=== PATIENT | female | born 1950 | race Caucasian/White ===

== ENCOUNTER 2018-06-08 19:00 | Inpatient (IN) | payer MEDICARE ==
[2018-06-08 20:16] LABS: ABSOLUTE BASOPHILS # (AUTO) 0.1 10^3/uL (0.0-0.2); ABSOLUTE EOSINOPHILS # (AUTO) 0.2 10^3/uL (0.0-0.6); ABSOLUTE LYMPHOCYTES (AUTO) 2.5 10^3/uL (0.5-4.7); ABSOLUTE MONOCYTES (AUTO) 0.9 10^3/uL (0.1-1.4); ABSOLUTE NEUT (AUTO) 5.7 10^3/uL (1.7-8.2); BASOPHILS % (AUTO) 1.4 % (0-2); EOSINOPHILS % (AUTO) 2.2 % (0-6); HEMATOCRIT 47.8 % (36.0-47.0); HEMOGLOBIN 16.2 g/dL (12.0-15.5); LYMPHOCYTES % (AUTO) 26.8 % (13-45); MEAN CORPUSCULAR HEMOGLOBIN 29.4 pg (27.0-33.4); MEAN CORPUSCULAR HGB CONC 33.8 g/dL (32.0-36.0); MEAN CORPUSCULAR VOLUME 87 fl (80-97); MONOCYTES % (AUTO) 9.1 % (3-13); PLATELET COUNT 236 10^3/uL (150-450); RED CELL DISTRIBUTION WIDTH 14.5 % (11.5-14.0); SEGMENTED NEUTROPHILS % (AUTO) 60.5 % (42-78); TOTAL CELLS COUNTED % (AUTO) 100 %; WHITE BLOOD COUNT 9.5 10^3/uL (4.0-10.5)
[2018-06-08 20:23] LABS: INTERNATIONAL RATION (INR) 1.04; PROTHROMBIN TIME 14.1 SEC (11.4-15.4)
[2018-06-08 20:24] LABS: PARTIAL THROMBOPLASTIN TIME 36.2 SEC (23.5-35.8)
[2018-06-08 20:29] LABS: ANION GAP 14 (5-19); BLOOD UREA NITROGEN 22 mg/dL (7-20); CALCIUM 9.7 mg/dL (8.4-10.2); CARBON DIOXIDE 26 mmol/L (22-30); CHLORIDE 100 mmol/L (98-107); GLUCOSE 189 mg/dL (75-110); POTASSIUM 4.7 mmol/L (3.6-5.0); SODIUM 139.9 mmol/L (137-145)
--- NOTE | 2018-06-08 21:01 | ER Document Report ---
ED General - General Chief Complaint: Rectal Bleeding Stated Complaint: RECTAL BLEEDING Time Seen by Provider: 06/08/18 19:26 Notes: Patient is a 67-year old female with a past medical history of atrial fibrillation, currently anticoagulated on Eliquis who presents with complaints of rectal bleeding that started several hours prior to arrival. The patient states that she has passed bright red blood per rectum as well as maroon stools. She denies any history of similar symptoms in the past. States that she has been told that she has had diverticulitis in the past. She has never had a colonoscopy. Nothing seems to improve or worsen her symptoms. She denies any associated hematemesis, melena, abdominal pain, fever or constitutional symptoms. States that she has not taken her night dose of Eliquis. - Related Data Allergies/Adverse Reactions: shellfish derived Adverse Reaction (Verified 06/08/18 23:41) Passed out Past Medical History - General Information source: Patient - Social History Smoking Status: Never Smoker Frequency of alcohol use: None Drug Abuse: None Lives with: Family Family History: Reviewed & Not Pertinent Patient has suicidal ideation: No Patient has homicidal ideation: No - Past Medical History Cardiac Medical History: Reports: Hx Atrial Fibrillation, Hx Hypercholesterolemia, Hx Hypertension Pulmonary Medical History: Reports: Hx COPD Endocrine Medical History: Reports: Hx Diabetes Mellitus Type 2 Renal/ Medical History: Denies: Hx Peritoneal Dialysis GI Medical History: Reports: Hx Gastroesophageal Reflux Disease Review of Systems - Review of Systems Notes: Constitutional: Negative for fever. HENT: Negative for sore throat. Eyes: Negative for visual changes. Cardiovascular: Negative for chest pain. Respiratory: Negative for shortness of breath. Gastrointestinal: Negative for abdominal pain, positive for bloody stools Genitourinary: Negative for dysuria. Musculoskeletal: Negative for back pain. Skin: Negative for rash. Neurological: Negative for headaches, weakness or numbness. 10 point ROS negative except as marked above and in HPI. Physical Exam - Vital signs Vitals: Temp Pulse Resp BP Pulse Ox 97.4 F 102 H 16 149/102 H 98 06/08/18 19:07 06/08/18 19:07 06/08/18 19:07 06/08/18 19:07 06/08/18 19:07 Interpretation: Tachycardic Notes: PHYSICAL EXAMINATION: GENERAL: Well-appearing, well-nourished and in no acute distress. HEAD: Atraumatic, normocephalic. EYES: Pupils equal round and reactive to light, extraocular movements intact, sclera anicteric, conjunctiva are normal. ENT: nares patent, oropharynx clear without exudates. Moist mucous membranes. NECK: Normal range of motion, supple without lymphadenopathy LUNGS: Breath sounds clear to auscultation bilaterally and equal. No wheezes rales or rhonchi. HEART: Regular rate and rhythm without murmurs ABDOMEN: Soft, nontender, normoactive bowel sounds. No guarding, no rebound. No masses appreciated. Rectal: Gross red blood, maroon stools. No masses or lesions. EXTREMITIES: Normal range of motion, no pitting or edema. No cyanosis. NEUROLOGICAL: No focal neurological deficits. Moves all extremities spontaneously and on command. PSYCH: Normal mood, normal affect. SKIN: Warm, Dry, normal turgor, no rashes or lesions noted. Course - Re-evaluation Re-evalutation: 06/08/18 20:58 Patient presents with rectal bleeding on apixaban. Hemodynamically within acceptable limits although is noted to be having intermittent bouts of tachycardia with her A. fib. She has not taken her nighttime medications. She is not hypotensive, map 73. Hemoglobin within normal limits. No evidence of renal dysfunction. I discussed this case with the surgeon recreational therapist Dr. Izaguirre who has agreed to perform a colonoscopy on the patient in the morning. The patient has been discussed with the hospitalist Dr. Romo who has accepted the patient for admission. - Vital Signs Vital signs: Temp Pulse Resp BP Pulse Ox 97.4 F 118 H 24 H 92/67 L 97 06/08/18 23:34 06/09/18 02:00 06/08/18 23:34 06/08/18 23:34 06/08/18 23:34 - Laboratory Result Diagrams: 06/08/18 22:55 06/08/18 19:58 Laboratory results interpreted by me: 06/08/18 06/08/18 06/08/18 19:58 19:58 19:58 RBC 5.50 H Hgb 16.2 H Hct 47.8 H RDW 14.5 H APTT 36.2 H BUN 22 H Glucose 189 H Discharge - Discharge Clinical Impression: Rectal bleeding, Hemorrhage secondary to anti-coagulation Afib Qualifiers: Atrial fibrillation type: chronic Qualified Code(s): I48.2 - Chronic atrial fibrillation Condition: Fair Disposition: ADMITTED INPATIENT Admitting Provider: Hospitalist Unit Admitted: Telemetry
[2018-06-08] MEDS ORDERED: POLYETHYLENE GLYCOL 3350 POWDER 17 GM/1 PACKET PO ONE (21:05)
[2018-06-08] MEDS ORDERED: BISACODYL 5 MG TABEC PO ONE (21:05)
[2018-06-08] MEDS ORDERED: ACETAMINOPHEN 325 MG TABLET PO PRN (22:17)
[2018-06-08] MEDS ORDERED: METOCLOPRAMIDE HCL INJ/PF 10 MG/2 ML SDV IV PRN (22:17)
[2018-06-08] MEDS ORDERED: IPRATROPIUM/ALBUTEROL 0.5-2.5 MG/3 ML AMPUL NEB PRN (22:17)
[2018-06-08] MEDS ORDERED: PROMETHAZINE HCL 25 MG TABLET PO PRN (22:22)
[2018-06-08] MEDS ORDERED: PEG 3350/NA SULF,BICARB,CL/KCL 4000 ML PO ONE (22:45)
[2018-06-08] MEDS ORDERED: PANTOPRAZOLE SODIUM 40 MG VIAL IV ONE (22:45)
[2018-06-08] MEDS ORDERED: PEG 3350/NA SULF,BICARB,CL/KCL 4000 ML ONE (22:57)
[2018-06-08 23:03] LABS: MEAN CORPUSCULAR VOLUME 86 fl (80-97)
[2018-06-08 23:10] LABS: HEMATOCRIT 46.7 % (36.0-47.0); MEAN CORPUSCULAR HEMOGLOBIN 29.5 pg (27.0-33.4); MEAN CORPUSCULAR HGB CONC 34.3 g/dL (32.0-36.0); PLATELET COUNT 237 10^3/uL (150-450); RED BLOOD COUNT 5.42 10^6/uL (3.72-5.28); RED CELL DISTRIBUTION WIDTH 14.5 % (11.5-14.0)
[2018-06-08] MEDS ORDERED: INSULIN LISPRO 100 UNIT/ML 3 ML VIAL SUBCUT PRN (23:32)
[2018-06-08] MEDS ORDERED: GLUCAGON,HUMAN RECOMB 1 MG INJ IM PRN (23:32)
[2018-06-08] MEDS ORDERED: DEXTROSE 50%-WATER 25 GM/50 ML DISP.SYRIN IV PRN ×2 (23:32)
[2018-06-08] MEDS ORDERED: DEXTROSE 40% GEL 15 GM TUBE PO PRN ×2 (23:32)
[2018-06-08] MEDS: NORMAL SALINE 1000 ML 1,000 ML IV PRN (23:43)
--- NOTE | 2018-06-08 23:51 | PDOC H&P ---
History of Present Illness Admission Date/PCP: 06/08/18 21:30 SEGUN BOWMAN PA-C Patient complains of: GI bleeding History of Present Illness: PHILIPPE LACEY is a 67 year old female with medical history remarkable for chronic atrial fibrillation on Eliquis for many years, COPD, hypertension, diabetes, CHF, coronary artery disease/[place] with 1 stent. Patient comes to the emergency department with rectal bleeding is started at 6 PM while going to the bathroom to urinate. The first bowel movement was large more than 2 cups with maroon blood with multiple blood clots, after that she has had one more bowel movement at home and one in the emergency department, the last one has been bright red blood and in less amount of the first one. Denies having any history of GI bleeding in the past. Patient never had an EGD or colonoscopy. Denies nausea, vomiting, dizziness, chest pain or tightness, palpitations, has mild chronic shortness of breath secondary to her COPD. In the ED laboratory came back with a hemoglobin of 16 and hematocrit of 46, coags panel was normal, occult blood in the stools positive Dr. Izaguirre from the general surgery department is aware of the patient and will perform a colonoscopy in the morning. Past Medical History Cardiac Medical History: Reports: Atrial Fibrillation - Chronic on Eliquis, Congestive Heart Failure, Coronary Artery Disease, Myocardial Infarction - 1 a stent, Hyperlipidema, Hypertension Pulmonary Medical History: Reports: Chronic Obstructive Pulmonary Disease (COPD) Neurological Medical History: Reports: Other - Restless legs syndrome Endocrine Medical History: Reports: Diabetes Mellitus Type 2 GI Medical History: Reports: Gastroesophageal Reflux Disease Past Surgical History Past Surgical History: Reports: Cholecystectomy, Hysterectomy Social History Smoking Status: Current Every Day Smoker - Less than 2 packs/week Frequency of Alcohol Use: None Hx Recreational Drug Use: No Hx Prescription Drug Abuse: No Past Social History Note: Patient lives with her niece who is at the bedside. Patient has 3 sons who lives out of the state. Family History Family History: Mother at 47 years old with complications of renal failure, apparently was diabetic, father at 64 years old with myocardial infarction and CHF. Sister had a history of colon cancer with liver metastasis and uterine cancer. Parental Family History Reviewed: Yes - As above Children Family History Reviewed: Yes Sibling(s) Family History Reviewed.: Yes Medication/Allergy Home Medications: Apixaban [Eliquis 5 mg Tablet] 5 mg PO BID 06/08/18 Cetirizine HCl [All Day Allergy] 10 mg PO PRN PRN 06/08/18 Empagliflozin [Jardiance] 10 mg PO DAILY 06/08/18 Fluticasone/Salmeterol [Advair 250-50 Diskus 14 Dose/Diskus] 1 inh IH Q12H 06/08 Furosemide [Lasix 40 mg Tablet] 40 mg PO QAM 06/08/18 Gabapentin [Neurontin 100 mg Capsule] 100 mg PO QHS 06/08/18 Glipizide [Glocotrol 5 Mg Tablet] 10 mg PO DAILY 06/08/18 Lisinopril [Prinivil] 10 mg PO DAILY 06/08/18 Metoprolol Tartrate [Lopressor 50 mg Tablet] 25 mg PO BID 06/08/18 Naproxen Sodium 220 mg PO BID 06/08/18 Omeprazole 20 mg PO DAILY 06/08/18 Pramipexole Di-HCl [Pramipexole Dihydrochloride] 0.125 mg PO QHS 06/08/18 Rosuvastatin Calcium 20 mg PO DAILY 06/08/18 Allergies/Adverse Reactions: shellfish derived Adverse Reaction (Verified 06/08/18 23:41) Passed out Review of Systems Review of Systems: As outlined in the HPI, all others negative Physical Exam Vital Signs: Temp Pulse Resp BP Pulse Ox 97.4 F 102 H 26 H 117/81 98 06/08/18 19:07 06/08/18 19:07 06/08/18 22:18 06/08/18 22:18 06/08/18 22:18 Additional comments: General appearance: Well-developed, well-nourished, alert and cooperative, and appears to be in no acute distress Head: Normocephalic Eyes: PEERL, EOMI, vision is grossly intact. Ears: External auditory canal and tympanic membranes clear, hearing grossly intact. Nose: No nasal discharge. Throat: Oral cavity and pharynx normal. No inflammation, swelling, exudate or lesions. Neck: Neck supple, nontender without lymphadenopathy, masses or thyromegaly. Cardiac: Normal S1 and S2. No S3, S4 or murmurs. Rhythm is irregular and mildly tachycardic. There is no cyanosis or pallor. Extremities are warm and well perfused. Capillary refill is less than 2 seconds. No carotid bruits. Lungs: Clear to auscultation and percussion without rales, rhonchi, wheezing or diminished breath sounds. Not using accessory muscles. Abdomen: Positive bowel sounds. Soft. Nondistended, nontender. No guarding or rebound. No masses. No hepatosplenomegaly Extremities: No significant deformity or joint abnormality. No edema. Peripheral pulses intact. No varicosities. Neurological: Cranial nerves II through XII grossly intact. Strength and sensation symmetric and intact throughout. Reflexes 2+ throughout. Skin: Skin normal color, texture and turgor with no lesions or eruptions, warm and dry. Psychiatric: The mental examination revealed the patient was oriented to person , place, and time. The patient was able to demonstrate good judgment on recent , without hallucinations, abnormal affect or abnormal behaviors. Results Laboratory Results: 06/08/18 22:55 06/08/18 06/08/18 22:34 22:55 WBC 10.0 RBC 5.42 H Hgb 16.0 H Hct 46.7 MCV 86 MCH 29.5 MCHC 34.3 RDW 14.5 H Plt Count 237 Blood Type O POSITIVE Antibody Screen NEGATIVE 06/08/18 06/08/18 06/08/18 19:58 19:58 19:58 WBC 9.5 RBC 5.50 H Hgb 16.2 H Hct 47.8 H MCV 87 MCH 29.4 MCHC 33.8 RDW 14.5 H Plt Count 236 Seg Neutrophils % 60.5 Lymphocytes % 26.8 Monocytes % 9.1 Eosinophils % 2.2 Basophils % 1.4 Absolute Neutrophils 5.7 Absolute Lymphocytes 2.5 Absolute Monocytes 0.9 Absolute Eosinophils 0.2 Absolute Basophils 0.1 PT 14.1 INR 1.04 APTT 36.2 H Sodium 139.9 Potassium 4.7 Chloride 100 Carbon Dioxide 26 Anion Gap 14 BUN 22 H Creatinine 0.63 Est GFR ( Amer) > 60 Est GFR (Non-Af Amer) > 60 Glucose 189 H Calcium 9.7 Stool Occult Blood 06/08/18 20:04 WBC RBC Hgb Hct MCV MCH MCHC RDW Plt Count Seg Neutrophils % Lymphocytes % Monocytes % Eosinophils % Basophils % Absolute Neutrophils Absolute Lymphocytes Absolute Monocytes Absolute Eosinophils Absolute Basophils PT INR APTT Sodium Potassium Chloride Carbon Dioxide Anion Gap BUN Creatinine Est GFR ( Amer) Est GFR (Non-Af Amer) Glucose Calcium Stool Occult Blood POSITIVE Assessment & Plan - Diagnosis (1) GI bleeding Qualifiers: GI bleed type/associated pathology: unspecified gastrointestinal hemorrhage type Qualified Code(s): K92.2 - Gastrointestinal hemorrhage, unspecified Is this a current diagnosis for this admission?: Yes Plan: Patient comes with a sudden episode of GI bleeding at 6 PM, initially maroon stools with blood clots that has turned bright red in the emergency department. Hemoglobin and hematocrit is a stable 1646. Dr. Izaguirre is aware of the patient and will plan for colonoscopy tomorrow, I discussed with the patient and agrees to drink GoLYTELY. Patient may need also an EGD but I will leave this decision to the surgeon. We will monitor hemoglobin and hematocrit every 4 hours, type and screen order place and we will transfused as needed. Eliquis on hold. Continues telemetry monitoring. Patient will remain n.p.o., can have ice chips. (2) Chronic atrial fibrillation Is this a current diagnosis for this admission?: Yes Plan: Heart rate in the emergency department in the 100s, continue with metoprolol if the blood pressure allows it, Eliquis on hold. (3) CAD (coronary artery disease) Qualifiers: Coronary Disease-Associated Artery/Lesion type: [place] artery Is this a current diagnosis for this admission?: Yes Plan: Patient with history of coronary artery disease/myocardial infarction and one a stent placed about 10 years ago, does no complaint of any cardiac symptomatology. Resume home medications. (4) CHF (congestive heart failure) Qualifiers: Heart failure chronicity: unspecified Is this a current diagnosis for this admission?: Yes Plan: Patient does not know if his systolic or diastolic, she is on Lasix at home which I am going to place on hold now due to her persistent GI bleeding. (5) COPD (chronic obstructive pulmonary disease) Qualifiers: COPD type: emphysema Emphysema type: unspecified Qualified Code(s): J43.9 - Emphysema, unspecified Is this a current diagnosis for this admission?: Yes Plan: Patient has COPD, no home oxygen, patient does not have any acute respiratory symptoms, continue with Advair (6) Hypertension Is this a current diagnosis for this admission?: Yes Plan: If blood pressure allow as we will will resume lisinopril and metoprolol. (7) Diabetes mellitus type 2 in obese Is this a current diagnosis for this admission?: Yes Plan: Will place the patient on Accu-Cheks every 6 hours, insulin lispro sliding scale and hypoglycemia protocol. Patient is at home on glipizide and Jardiance. - Time Time Spent: 50 to 70 Minutes Anticipated discharge: Home - Inpatient Certification Based on my medical assessment, after consideration of the patient's comorbidities, presenting symptoms, or acuity I expect that the services needed warrant INPATIENT care.: Yes I certify that my determination is in accordance with my understanding of Medicare's requirements for reasonable and necessary INPATIENT services [42 CFR 412.3e].: Yes Medical Necessity: Risk of Complication if Not Cared For in Hospital - Severe severe GI bleeding with hypotension, severe anemia, need for urgent blood transfusion - Plan Summary Plan Summary: Case discussed with patient and her niece, both agree with plan.,
[2018-06-08] MEDS ORDERED: (PENDING PHARMACY ID) (Cetirizine Hcl [All Day Allergy] 10 MG) PO PRN (23:56)
[2018-06-09] MEDS ORDERED: ATORVASTATIN CALCIUM 40 MG TABLET PO ONE (00:15)
[2018-06-09] MEDS ORDERED: PRAMIPEXOLE DI-HCL 0.25 MG TABLET PO ONE (00:15)
[2018-06-09] MEDS ORDERED: FLUTICASONE/SALMETEROL DISKUS 250-50 MCG/DOSE IH ONE ×2 (00:15→01:59)
[2018-06-09] MEDS ORDERED: GABAPENTIN 100 MG CAPSULE PO ONE (01:00)
[2018-06-09] MEDS: PANTOPRAZOLE SODIUM 40 MG VIAL IV SCH ×2 (05:03→17:21)
[2018-06-09 05:17] LABS: ANION GAP 15 (5-19); BLOOD UREA NITROGEN 20 mg/dL (7-20); CALCIUM 9.4 mg/dL (8.4-10.2); CARBON DIOXIDE 24 mmol/L (22-30); CHLORIDE 101 mmol/L (98-107); GLUCOSE 211 mg/dL (75-110); POTASSIUM 4.6 mmol/L (3.6-5.0); SODIUM 140.2 mmol/L (137-145)
[2018-06-09] MEDS ORDERED: LANSOPRAZOLE 15 MG TAB.RAP.DR PO SCH (06:00)
--- NOTE | 2018-06-09 06:18 | PDOC CONSULTATION ---
Consultation Consult Date: 06/09/18 Consult reason:: Lower GI bleeding History of Present Illness Admission Date/PCP: 06/08/18 21:30 SEGUN BOWMAN PA-C Patient complains of: Lower GI bleeding History of Present Illness: PHILIPPE LACEY is a 67 year old female seen at the request of the hospitalist service. She reports that yesterday she began having large volume, dark maroon, bloody bowel movements. She had 2 large bowel movements at home and came immediately to the emergency department. Patient is on Eliquis for atrial fibrillation. The patient has a history of congestive heart failure and [place]. She has stents in place. The patient has never had a colonoscopy. The patient denies significant abdominal pain, constipation, diarrhea, bloating. She does report melena and hematochezia. She denies chest pain, shortness of breath, weakness, dizziness, orthostasis, headache, blurry vision. The patient is currently drinking her bowel prep. Her last bloody bowel movement was 10-15 minutes ago. Past Medical History Cardiac Medical History: Reports: Atrial Fibrillation, Congestive Heart Failure , Coronary Artery Disease, Myocardial Infarction - 1 a stent, Hyperlipidema, Hypertension Pulmonary Medical History: Reports: Chronic Obstructive Pulmonary Disease (COPD) Neurological Medical History: Reports: Other - Restless legs syndrome Endocrine Medical History: Reports: Diabetes Mellitus Type 2 GI Medical History: Reports: Gastroesophageal Reflux Disease Psychiatric Medical History: Denies: Depression Past Surgical History Past Surgical History: Reports: Cholecystectomy, Hysterectomy Social History Lives with: Family Smoking Status: Never Smoker Number of Years Smokin Last Time Smoked: 06/08/2018 Frequency of Alcohol Use: None Hx Recreational Drug Use: No Drugs: None Hx Prescription Drug Abuse: No Family History Family History: Reviewed & Not Pertinent Parental Family History Reviewed: Yes Children Family History Reviewed: Yes Sibling(s) Family History Reviewed.: Yes Medication/Allergy Home Medications: Apixaban [Eliquis 5 mg Tablet] 5 mg PO BID 06/08/18 Cetirizine HCl [All Day Allergy] 10 mg PO PRN PRN 06/08/18 Empagliflozin [Jardiance] 10 mg PO DAILY 06/08/18 Fluticasone/Salmeterol [Advair 250-50 Diskus 14 Dose/Diskus] 1 inh IH Q12H 06/08 Furosemide [Lasix 40 mg Tablet] 40 mg PO QAM 06/08/18 Gabapentin [Neurontin 100 mg Capsule] 100 mg PO QHS 06/08/18 Glipizide [Glocotrol 5 Mg Tablet] 10 mg PO DAILY 06/08/18 Lisinopril [Prinivil] 10 mg PO DAILY 06/08/18 Metoprolol Tartrate [Lopressor 50 mg Tablet] 25 mg PO BID 06/08/18 Naproxen Sodium 220 mg PO BID 06/08/18 Omeprazole 20 mg PO DAILY 06/08/18 Pramipexole Di-HCl [Pramipexole Dihydrochloride] 0.125 mg PO QHS 06/08/18 Rosuvastatin Calcium 20 mg PO DAILY 06/08/18 Allergies/Adverse Reactions: shellfish derived Adverse Reaction (Verified 06/08/18 23:41) Passed out Review of Systems Constitutional: ABSENT: chills, fever(s), headache(s) Eyes: ABSENT: visual disturbances Ears: ABSENT: hearing changes Nose, Mouth, and Throat: ABSENT: sore throat Cardiovascular: ABSENT: chest pain, palpitations Respiratory: ABSENT: cough, dyspnea Gastrointestinal: PRESENT: hematochezia, melena. ABSENT: abdominal pain, hematemesis, nausea, vomiting Genitourinary: ABSENT: hematuria Musculoskeletal: ABSENT: back pain Integumentary: ABSENT: pruritus, rash Neurological: ABSENT: abnormal gait, abnormal movements, abnormal speech, confusion, convulsions Psychiatric: ABSENT: anxiety, depression Endocrine: ABSENT: cold intolerance, heat intolerance Hematologic/Lymphatic: PRESENT: easy bleeding, easy bruising Physical Exam Vital Signs: Temp Pulse Resp BP Pulse Ox 97.4 F 128 H 12 105/79 100 06/08/18 23:34 06/09/18 04:17 06/09/18 04:17 06/09/18 04:17 06/09/18 04:17 Intake & Output 06/07/18 06/08/18 06/09/18 06:59 06:59 06:59 Weight 68.7 kg General appearance: PRESENT: no acute distress Head exam: PRESENT: atraumatic, normocephalic Eye exam: PRESENT: EOMI, PERRLA. ABSENT: scleral icterus Mouth exam: PRESENT: moist, neck supple Neck exam: ABSENT: meningismus, tenderness, thyromegaly, tracheal deviation Respiratory exam: PRESENT: clear to auscultation ana, unlabored. ABSENT: accessory muscle use, chest wall tenderness, rhonchi, tachypnea, wheezes Cardiovascular exam: PRESENT: irregular rhythm Pulses: PRESENT: normal radial pulses Vascular exam: PRESENT: normal capillary refill GI/Abdominal exam: PRESENT: soft. ABSENT: distended, tenderness Rectal exam: PRESENT: deferred Extremities exam: ABSENT: clubbing Musculoskeletal exam: ABSENT: deformity Neurological exam: PRESENT: alert, awake, oriented to person, oriented to place , oriented to time, oriented to situation, CN II-XII grossly intact Psychiatric exam: ABSENT: agitated, anxious, depressed Focused psych exam: ABSENT: delusional Skin exam: ABSENT: cyanosis, erythema, jaundice Results Laboratory Results: 06/08/18 22:55 06/09/18 04:31 06/08/18 06/08/18 06/09/18 22:34 22:55 04:31 WBC 10.0 RBC 5.42 H Hgb 16.0 H Hct 46.7 MCV 86 MCH 29.5 MCHC 34.3 RDW 14.5 H Plt Count 237 Sodium 140.2 Potassium 4.6 Chloride 101 Carbon Dioxide 24 Anion Gap 15 BUN 20 Creatinine 0.57 Est GFR ( Amer) > 60 Est GFR (Non-Af Amer) > 60 Glucose 211 H Calcium 9.4 Blood Type O POSITIVE Antibody Screen NEGATIVE Assessment & Plan - Diagnosis (1) Lower GI bleeding Is this a current diagnosis for this admission?: Yes (2) Hemorrhage secondary to anti-coagulation Is this a current diagnosis for this admission?: Yes - Plan Summary Plan Summary: This is a 67-year-old female with lower GI bleeding. Her last dose of Eliquis was 8 AM yesterday. Continue to hold Eliquis. The patient is currently drinking her bowel prep. She has not finished it. The patient is hemodynamically stable at present. Her hemoglobin is 16. Plan for colonoscopy when her bowel prep is complete. Risks/benefits discussed, informed consent obtained, and all questions answered.
[2018-06-09] MEDS ORDERED: CETIRIZINE 10 MG TABLET PO PRN (08:57)
[2018-06-09] MEDS ORDERED: LISINOPRIL 10 MG TABLET PO SCH (10:00)
[2018-06-09] MEDS ORDERED: GLIPIZIDE 5 MG TABLET PO SCH (10:00)
[2018-06-09] MEDS ORDERED: NAPROXEN SODIUM 220 MG PO SCH (10:00)
[2018-06-09] MEDS ORDERED: (PENDING PHARMACY ID) (Empagliflozin [Jardiance] 10 MG) PO SCH (10:00)
[2018-06-09] MEDS ORDERED: METOPROLOL TARTRATE 50 MG TABLET PO SCH (10:00)
[2018-06-09] MEDS: FLUTICASONE/SALMETEROL DISKUS 250-50 MCG/DOSE IH SCH ×2 (10:40→21:33)
--- NOTE | 2018-06-09 12:02 | PDOC PROGRESS REPORT ---
Subjective Progress Note for:: 06/09/18 Subjective:: 67-year-old female past medical history of chronic A. fib on Eliquis, COPD, hypertension, diabetes, CHF, CAD status post PCI and stent placement. Patient presented to ED complaining of having a large bloody bowel movement at 6 PM at home and another one while waiting in the ED with multiple large clots. Patient denies any history of previous GI bleed and has never had any EGD or colonoscopy. In ED his hemoglobin was 16 and hematocrit 46 coags negative occult blood positive. 06/09/2018. Patient is comfortably sitting in her chair in no acute distress. No acute events overnight. 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 Patient stating that she is feeling nauseous and she is very hungry. She has not had any bright blood per rectum except for some clots. She finished her GoLYTELY at 7 AM today and is scheduled to undergo colonoscopy as soon as surgery is able to take her to the OR. Patient denies any shortness of breath, dizziness, chills palpitation, vomiting , chest pain, urinary symptoms. Reason For Visit: GI BLEEDING Physical Exam Vital Signs: Temp Pulse Resp BP Pulse Ox 97.3 F 93 17 114/74 100 06/09/18 11:06 06/09/18 11:06 06/09/18 11:06 06/09/18 11:06 06/09/18 11:06 Intake & Output 06/08/18 06/09/18 06/10/18 06:59 06:59 06:59 Intake Total 0 Balance 0 Weight 68.7 kg General appearance: PRESENT: no acute distress, well-developed, well-nourished Head exam: PRESENT: atraumatic, normocephalic Eye exam: PRESENT: conjunctiva pink, EOMI, PERRLA. ABSENT: scleral icterus Ear exam: PRESENT: normal external ear exam Mouth exam: PRESENT: moist, tongue midline Neck exam: ABSENT: carotid bruit, JVD, lymphadenopathy, thyromegaly Respiratory exam: PRESENT: clear to auscultation ana. ABSENT: rales, rhonchi, wheezes Cardiovascular exam: PRESENT: RRR. ABSENT: diastolic murmur, rubs, systolic murmur Pulses: PRESENT: normal dorsalis pedis pul Vascular exam: PRESENT: normal capillary refill GI/Abdominal exam: PRESENT: normal bowel sounds, soft. ABSENT: distended, guarding, mass, organolmegaly, rebound, tenderness Rectal exam: PRESENT: deferred Extremities exam: PRESENT: full ROM. ABSENT: calf tenderness, clubbing, pedal edema Neurological exam: PRESENT: alert, awake, oriented to person, oriented to place , oriented to time, oriented to situation, CN II-XII grossly intact. ABSENT: motor sensory deficit Psychiatric exam: PRESENT: appropriate affect, normal mood. ABSENT: homicidal ideation, suicidal ideation Skin exam: PRESENT: dry, intact, warm. ABSENT: cyanosis, rash Results Laboratory Results: 06/08/18 22:55 06/09/18 04:31 06/08/18 06/08/18 06/09/18 22:34 22:55 04:31 WBC 10.0 RBC 5.42 H Hgb 16.0 H Hct 46.7 MCV 86 MCH 29.5 MCHC 34.3 RDW 14.5 H Plt Count 237 Sodium 140.2 Potassium 4.6 Chloride 101 Carbon Dioxide 24 Anion Gap 15 BUN 20 Creatinine 0.57 Est GFR ( Amer) > 60 Est GFR (Non-Af Amer) > 60 Glucose 211 H Calcium 9.4 Blood Type O POSITIVE Antibody Screen NEGATIVE Assessment & Plan - Diagnosis (1) GI bleeding Qualifiers: GI bleed type/associated pathology: unspecified gastrointestinal hemorrhage type Qualified Code(s): K92.2 - Gastrointestinal hemorrhage, unspecified Is this a current diagnosis for this admission?: Yes Plan: Possibly lower GI bleed. Denies any history of gastritis, GERD, peptic ulcer or any GI malignancy. Monitor H&H and volume status. Pending colonoscopy by surgery. Follow-up recommendation. (2) Diabetes Qualifiers: Diabetes mellitus type: type 2 Is this a current diagnosis for this admission?: No Plan: Long-acting insulin, Accu-Chek, sliding insulin and pre-meal. Adjust dosage as needed. The glycemic protocol. Hold oral hypoglycemics and resume upon discharge. Diabetic diet. (3) CAD (coronary artery disease) Qualifiers: Coronary Disease-Associated Artery/Lesion type: [place] artery Is this a current diagnosis for this admission?: Yes Plan: History of CAD with PCI and stent placement. Denies any active chest pain. Statins. Hold antiplatelet and RONN. Restart once patient is stabilized. (4) CHF (congestive heart failure) Qualifiers: Heart failure chronicity: unspecified Is this a current diagnosis for this admission?: Yes Plan: Not on exacerbation based on physical examination. No echo available. Hold Lasix for now until patient is stabilized. Monitor volume status. Cardiac diet. Outpatient cardiology follow-up. (5) COPD (chronic obstructive pulmonary disease) Qualifiers: COPD type: emphysema Emphysema type: unspecified Qualified Code(s): J43.9 - Emphysema, unspecified Is this a current diagnosis for this admission?: Yes Plan: Currently not on exacerbation. Saturating 100% on room air. (6) Hypertension Is this a current diagnosis for this admission?: Yes Plan: Normotensive. Hold anti-hypertensive medications. Will resume once clinically appropriate. Follow-up with PCP. (7) Chronic atrial fibrillation Is this a current diagnosis for this admission?: Yes Plan: Rate controlled. Hold Eliquis due to recent GI bleed. Any beta-blockers. Restart once patient is stabilized.
[2018-06-09] MEDS: NORMAL SALINE 1000 ML 1,000 ML IV PRN (12:24)
[2018-06-09] MEDS ORDERED: ONDANSETRON HCL INJ/PF 4 MG/2 ML SDV ONE (13:35)
[2018-06-09] MEDS ORDERED: GLUCAGON,HUMAN RECOMB 1 MG INJ ONE (13:36)
[2018-06-09] MEDS ORDERED: FLUMAZENIL INJ 0.5 MG/5 ML VIAL ONE (13:36)
[2018-06-09] MEDS ORDERED: EPINEPHRINE INJ 1 MG/10 ML DISP.SYRIN ONE (13:36)
[2018-06-09] MEDS ORDERED: NALOXONE HCL INJ/PF 0.4 MG/1 ML SDV ONE (13:36)
[2018-06-09] MEDS: MIDAZOLAM 2 MG/2 ML INJ ONE ×5 (14:20→14:39)
[2018-06-09] MEDS: FENTANYL CITRATE INJ/PF 100 MCG/2 ML AMPUL ONE ×4 (14:22→15:00)
--- NOTE | 2018-06-09 15:50 | Operative Report ---
Operative Report DATE OF SURGERY: 06/09/18 PREOPERATIVE DIAGNOSIS: Gastrointestinal bleeding from the rectum; no history of previous colonoscopy POSTOPERATIVE DIAGNOSIS: Same with pandiverticulosis; widespread condyloma acuminata OPERATION: Total colonoscopy cecum with photodocumentation SURGEON: MENDEZ PETERSON ANESTHESIA: Moderate Sedation TISSUE REMOVED OR ALTERED: none COMPLICATIONS: none ESTIMATED BLOOD LOSS: none INTRAOPERATIVE FINDINGS: See below PROCEDURE: Obtaining informed consent the patient was taken from the preoperative holding area to the main endoscopy suite where monitoring devices were attached to the patient. Plan and surgical timeout were conducted The patient was placed in the left lateral decubitus position with knees to chest. A perianal examination was performed. There was no visible or palpable anorectal pathology. Sphincter tone was felt to be normal. The flexible adult colonoscope was advanced through the anal rectal canal, all the way to the cecum. The patient was scope through the sigmoid colon which is full of diverticulosis was extremely difficult. This required sufficient amount of sedation, extracorporeal manipulation, all may be challenging because of the patient's restless leg syndrome. Nonetheless we were able to visualize the cecum as well as the ileocecal valve, the appendiceal orifice and transillumination of the anterior abdominal wall. This was an excellent study on the well-prepped bowel. The colonoscope was withdrawn slowly and methodically checked and the mucosa carefully. There was no evidence of tumor, stricture, bleeding or polyp. There were extensive sigmoid and left colonic diverticulosis as well as a few diverticulosis of the right colon ;The scope was slowly withdrawn through the anal rectal canal. Complete visualization of the rectum was achieved with photodocumentation. The scope was withdrawn to the patient's anus. The patient tolerated the procedure well and was taken to the recovery area in stable condition. Per surveillance patient may be an appropriate candidate for accelerated colonoscopy in 5-7 years. I discussed the above findings with the internal medicine service. Surgery will sign off for now. Please reconsult if needed.
[2018-06-09] MEDS: PRAMIPEXOLE DI-HCL 0.25 MG TABLET PO SCH (21:32)
[2018-06-09] MEDS: ATORVASTATIN CALCIUM 40 MG TABLET PO SCH (21:33)
[2018-06-09] MEDS: GABAPENTIN 100 MG CAPSULE PO SCH (21:33)
[2018-06-10] MEDS: PANTOPRAZOLE SODIUM 40 MG VIAL IV SCH ×2 (06:22→18:04)
[2018-06-10 08:56] LABS: ABSOLUTE BASOPHILS # (AUTO) 0.1 10^3/uL (0.0-0.2); ABSOLUTE EOSINOPHILS # (AUTO) 0.2 10^3/uL (0.0-0.6); ABSOLUTE LYMPHOCYTES (AUTO) 1.5 10^3/uL (0.5-4.7); ABSOLUTE MONOCYTES (AUTO) 0.5 10^3/uL (0.1-1.4); ABSOLUTE NEUT (AUTO) 4.4 10^3/uL (1.7-8.2); EOSINOPHILS % (AUTO) 2.8 % (0-6); HEMATOCRIT 41.6 % (36.0-47.0); LYMPHOCYTES % (AUTO) 22.2 % (13-45); MEAN CORPUSCULAR HGB CONC 33.4 g/dL (32.0-36.0); MEAN CORPUSCULAR VOLUME 87 fl (80-97); MONOCYTES % (AUTO) 7.7 % (3-13); PLATELET COUNT 189 10^3/uL (150-450); RED BLOOD COUNT 4.79 10^6/uL (3.72-5.28); SEGMENTED NEUTROPHILS % (AUTO) 66.3 % (42-78); TOTAL CELLS COUNTED % (AUTO) 100 %; WHITE BLOOD COUNT 6.7 10^3/uL (4.0-10.5)
[2018-06-10 08:58] LABS: HEMOGLOBIN 13.9 g/dL (12.0-15.5)
[2018-06-10] MEDS: FLUTICASONE/SALMETEROL DISKUS 250-50 MCG/DOSE IH SCH ×2 (09:25→21:37)
[2018-06-10] MEDS: METOPROLOL TARTRATE 25 MG TABLET PO SCH ×2 (11:45→21:39)
[2018-06-10] MEDS: INSULIN LISPRO 100 UNIT/ML 3 ML VIAL SUBCUT PRN ×2 (11:55→21:54)
[2018-06-10] MEDS: NYSTATIN CREAM 15 GM TP SCH (21:38)
[2018-06-10] MEDS: ATORVASTATIN CALCIUM 40 MG TABLET PO SCH (21:39)
[2018-06-10] MEDS: PRAMIPEXOLE DI-HCL 0.25 MG TABLET PO SCH (21:39)
[2018-06-10] MEDS: GABAPENTIN 100 MG CAPSULE PO SCH (21:39)
[2018-06-11 05:21] LABS: ABSOLUTE BASOPHILS # (AUTO) 0.1 10^3/uL (0.0-0.2); ABSOLUTE EOSINOPHILS # (AUTO) 0.2 10^3/uL (0.0-0.6); ABSOLUTE LYMPHOCYTES (AUTO) 1.9 10^3/uL (0.5-4.7); ABSOLUTE MONOCYTES (AUTO) 0.7 10^3/uL (0.1-1.4); ABSOLUTE NEUT (AUTO) 4.3 10^3/uL (1.7-8.2); BASOPHILS % (AUTO) 1.1 % (0-2); EOSINOPHILS % (AUTO) 2.6 % (0-6); HEMATOCRIT 39.5 % (36.0-47.0); HEMOGLOBIN 13.3 g/dL (12.0-15.5); MEAN CORPUSCULAR HEMOGLOBIN 28.9 pg (27.0-33.4); MEAN CORPUSCULAR HGB CONC 33.7 g/dL (32.0-36.0); MEAN CORPUSCULAR VOLUME 86 fl (80-97); MONOCYTES % (AUTO) 9.1 % (3-13); PLATELET COUNT 168 10^3/uL (150-450); RED BLOOD COUNT 4.61 10^6/uL (3.72-5.28); RED CELL DISTRIBUTION WIDTH 13.9 % (11.5-14.0); SEGMENTED NEUTROPHILS % (AUTO) 60.2 % (42-78); TOTAL CELLS COUNTED % (AUTO) 100 %; WHITE BLOOD COUNT 7.2 10^3/uL (4.0-10.5)
[2018-06-11] MEDS: PANTOPRAZOLE SODIUM 40 MG VIAL IV SCH (05:33)
[2018-06-11] MEDS: INSULIN LISPRO 100 UNIT/ML 3 ML VIAL SUBCUT PRN (08:22)
[2018-06-11] MEDS: NYSTATIN CREAM 15 GM TP SCH (09:01)
[2018-06-11] MEDS: FLUTICASONE/SALMETEROL DISKUS 250-50 MCG/DOSE IH SCH (09:02)
[2018-06-11] MEDS: METOPROLOL TARTRATE 25 MG TABLET PO SCH (09:02)
--- NOTE | 2018-06-11 10:28 | PDOC DISCHARGE SUMMARY ---
General - Admit/Disc Date/PCP Admission Date/Primary Care Provider: 06/08/18 21:30 SEGUN BOWMAN PA-C Discharge Date: 06/11/18 - Discharge Diagnosis (1) GI bleeding Is this a current diagnosis for this admission?: Yes (2) Diabetes Is this a current diagnosis for this admission?: No (3) CAD (coronary artery disease) Is this a current diagnosis for this admission?: Yes (4) CHF (congestive heart failure) Is this a current diagnosis for this admission?: Yes (5) COPD (chronic obstructive pulmonary disease) Is this a current diagnosis for this admission?: Yes (6) Hypertension Is this a current diagnosis for this admission?: Yes (7) Chronic atrial fibrillation Is this a current diagnosis for this admission?: Yes (8) Diverticulosis Is this a current diagnosis for this admission?: Yes - Additional Information Resuscitation Status: Full Code Discharge Diet: As Tolerated Discharge Activity: Activity As Tolerated Home Medications: Cetirizine HCl [All Day Allergy] 10 mg PO Q12 06/08/18 Empagliflozin [Jardiance] 10 mg PO DAILY 06/08/18 Fluticasone/Salmeterol [Advair 250-50 Diskus 14 Dose/Diskus] 1 inh IH Q12 Furosemide [Lasix 40 mg Tablet] 40 mg PO QAM 06/08/18 Gabapentin [Neurontin 100 mg Capsule] 100 mg PO QHS 06/08/18 Glipizide [Glucotrol 5 mg Tablet] 10 mg PO BID 06/08/18 Lisinopril [Prinivil] 10 mg PO DAILY 06/08/18 Omeprazole 20 mg PO DAILY 06/08/18 Pramipexole Di-HCl [Pramipexole Dihydrochloride] 0.25 mg PO QHS 06/08/18 Rosuvastatin Calcium 20 mg PO QHS 06/08/18 Albuterol Sulfate [Ventolin 0.083% Neb 2.5 mg/3 mL Ampul] 1 vial NEB RTQ4HP PRN 06/09/18 Metoprolol Tartrate [Lopressor 25 mg Tablet] 25 mg PO Q12 06/09/18 History of Present Illness History of Present Illness: 67-year-old female past medical history of chronic A. fib on Eliquis, COPD, hypertension, diabetes, CHF, CAD status post PCI and stent placement. Patient presented to ED complaining of having a large bloody bowel movement at 6 PM at home and another one while waiting in the ED with multiple large clots. Patient denies any history of previous GI bleed and has never had any EGD or colonoscopy. In ED his hemoglobin was 16 and hematocrit 46 coags negative occult blood positive. Hospital Course Hospital Course: (1) GI bleeding Status post colonoscopy on 06/09/2018 which was negative for any acute source of bleeding except for colvin diverticulosis which could have been the cause of bleeding exacerbated by chronic NOACs her A. fib. Patient was counseled about risk and benefit of continuing anticoagulation. She suggested that I should contact her senior licensing manager Dr. Nieto. I was unable to get hold of Dr. Nieto through the phone but her niece got hold of him and asked him to call me. He very kindly left a message on my phone with instructions hold her anticoagulation until she is seen by him as outpatient. Patient kindly agreed with the plan. Denies any history of gastritis, GERD, peptic ulcer or any GI malignancy. H&H stayed stable. Patient was highly advised to return back to ED if she has another episode of GI bleed. (2) Diabetes Long-acting insulin, Accu-Chek, sliding insulin and pre-meal. Adjust dosage as needed. Hypoglycemic protocol. Hold oral hypoglycemics and resume upon discharge. Diabetic diet. (3) CAD (coronary artery disease) History of CAD with PCI and stent placement. Denies any active chest pain. Statins, beta-blockers and RONN. Restart antiplatelets. Hold Eliquis until seen by Dr. Nieto her senior licensing manager. (4) CHF (congestive heart failure) Not on exacerbation based on physical examination. No echo available. Hold Lasix for now until patient is stabilized. Monitor volume status. Cardiac diet. Outpatient cardiology follow-up. (5) COPD (chronic obstructive pulmonary disease) Currently not on exacerbation. Saturating 100% on room air. (6) Hypertension Euvolemic. Restart home antihypertensive medications. His meds as needed. PCP follow-up. (7) Chronic atrial fibrillation Rate controlled. Continue beta-blockers. Hold Eliquis due to recent GI bleed. Please refer to problem #1 (8) Diverticulosis Pandiverticulosis as per colonoscopy on 06/09/2018 which may have been the source of GI bleed. Encourage high fiber diet. Physical Exam Vital Signs: Temp Pulse Resp BP Pulse Ox 97.8 F 118 H 20 121/79 97 06/11/18 03:02 06/11/18 07:00 06/11/18 03:02 06/11/18 03:02 06/11/18 03:02 Intake & Output 06/10/18 06/11/18 06/12/18 06:59 06:59 06:59 Intake Total 2486 2624 Balance 2486 2624 Weight 71.4 kg 69.3 kg General appearance: PRESENT: no acute distress, well-developed, well-nourished Head exam: PRESENT: atraumatic, normocephalic Eye exam: PRESENT: conjunctiva pink, EOMI, PERRLA. ABSENT: scleral icterus Ear exam: PRESENT: normal external ear exam Mouth exam: PRESENT: moist, tongue midline Neck exam: ABSENT: carotid bruit, JVD, lymphadenopathy, thyromegaly Respiratory exam: PRESENT: clear to auscultation ana. ABSENT: rales, rhonchi, wheezes Cardiovascular exam: PRESENT: RRR. ABSENT: diastolic murmur, rubs, systolic murmur Pulses: PRESENT: normal dorsalis pedis pul Vascular exam: PRESENT: normal capillary refill GI/Abdominal exam: PRESENT: normal bowel sounds, soft. ABSENT: distended, guarding, mass, organolmegaly, rebound, tenderness Rectal exam: PRESENT: deferred Extremities exam: PRESENT: full ROM. ABSENT: calf tenderness, clubbing, pedal edema Neurological exam: PRESENT: alert, awake, oriented to person, oriented to place , oriented to time, oriented to situation, CN II-XII grossly intact. ABSENT: motor sensory deficit Psychiatric exam: PRESENT: appropriate affect, normal mood. ABSENT: homicidal ideation, suicidal ideation Skin exam: PRESENT: dry, intact, warm. ABSENT: cyanosis, rash Results Laboratory Results: 06/11/18 04:38 06/09/18 04:31 06/11/18 04:38 WBC 7.2 RBC 4.61 Hgb 13.3 Hct 39.5 MCV 86 MCH 28.9 MCHC 33.7 RDW 13.9 Plt Count 168 Seg Neutrophils % 60.2 Lymphocytes % 27.0 Monocytes % 9.1 Eosinophils % 2.6 Basophils % 1.1 Absolute Neutrophils 4.3 Absolute Lymphocytes 1.9 Absolute Monocytes 0.7 Absolute Eosinophils 0.2 Absolute Basophils 0.1 Qualifiers - * PATIENT BEING DISCHARGED WITH ANY OF THE FOLLOWING DIAGNOSIS: No
--- NOTE | 2018-06-11 10:33 | PDOC PROGRESS REPORT ---
Subjective Progress Note for:: 06/10/18 Subjective:: 67-year-old female past medical history of chronic A. fib on Eliquis, COPD, hypertension, diabetes, CHF, CAD status post PCI and stent placement. Patient presented to ED complaining of having a large bloody bowel movement at 6 PM at home and another one while waiting in the ED with multiple large clots. Patient denies any history of previous GI bleed and has never had any EGD or colonoscopy. In ED his hemoglobin was 16 and hematocrit 46 coags negative occult blood positive. 06/09/2018. Patient is comfortably sitting in her chair in no acute distress. No acute events overnight. 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 Patient stating that she is feeling nauseous and she is very hungry. She has not had any bright blood per rectum except for some clots. She finished her GoLYTELY at 7 AM today and is scheduled to undergo colonoscopy as soon as surgery is able to take her to the OR. Patient denies any shortness of breath, dizziness, chills palpitation, vomiting , chest pain, urinary symptoms. 06/10/2018. No acute events overnight. Patient is status post uneventful colonoscopy yesterday by surgery. Patient is sitting comfortably in her bed not in acute distress and very pleasant and cooperative with physical examination. Some blood clots in 1 of her bowel movement since yesterday. She denies any chest pain, shortness of breath, palpitation, dizziness. Reason For Visit: GI BLEEDING Physical Exam Vital Signs: Temp Pulse Resp BP Pulse Ox 97.9 F 111 H 20 144/75 H 96 06/10/18 03:50 06/10/18 03:50 06/10/18 03:50 06/10/18 03:50 06/10/18 03:50 Intake & Output 06/09/18 06/10/18 06/11/18 06:59 06:59 06:59 Intake Total 2486 Balance 2486 Weight 68.7 kg 71.4 kg General appearance: PRESENT: no acute distress, well-developed, well-nourished Head exam: PRESENT: atraumatic, normocephalic Eye exam: PRESENT: conjunctiva pink, EOMI, PERRLA. ABSENT: scleral icterus Ear exam: PRESENT: normal external ear exam Mouth exam: PRESENT: moist, tongue midline Neck exam: ABSENT: carotid bruit, JVD, lymphadenopathy, thyromegaly Respiratory exam: PRESENT: clear to auscultation ana. ABSENT: rales, rhonchi, wheezes Cardiovascular exam: PRESENT: RRR. ABSENT: diastolic murmur, rubs, systolic murmur Pulses: PRESENT: normal dorsalis pedis pul Vascular exam: PRESENT: normal capillary refill GI/Abdominal exam: PRESENT: normal bowel sounds, soft. ABSENT: distended, guarding, mass, organolmegaly, rebound, tenderness Rectal exam: PRESENT: deferred Extremities exam: PRESENT: full ROM. ABSENT: calf tenderness, clubbing, pedal edema Neurological exam: PRESENT: alert, awake, oriented to person, oriented to place , oriented to time, oriented to situation, CN II-XII grossly intact. ABSENT: motor sensory deficit Psychiatric exam: PRESENT: appropriate affect, normal mood. ABSENT: homicidal ideation, suicidal ideation Skin exam: PRESENT: dry, intact, warm. ABSENT: cyanosis, rash Results Laboratory Results: 06/10/18 08:07 06/09/18 04:31 06/10/18 08:07 WBC 6.7 RBC 4.79 Hgb 13.9 D Hct 41.6 MCV 87 MCH 29.0 MCHC 33.4 RDW 14.0 Plt Count 189 Seg Neutrophils % 66.3 Lymphocytes % 22.2 Monocytes % 7.7 Eosinophils % 2.8 Basophils % 1.0 Absolute Neutrophils 4.4 Absolute Lymphocytes 1.5 Absolute Monocytes 0.5 Absolute Eosinophils 0.2 Absolute Basophils 0.1 Assessment & Plan - Diagnosis (1) GI bleeding Qualifiers: GI bleed type/associated pathology: unspecified gastrointestinal hemorrhage type Qualified Code(s): K92.2 - Gastrointestinal hemorrhage, unspecified Is this a current diagnosis for this admission?: Yes Plan: Status post colonoscopy on 06/09/2018 which was negative for any acute source of bleeding except for colvin diverticulosis which could have been the cause of bleeding exacerbated by chronic NOACs her A. fib. Patient was counseled about risk and benefit of continuing anticoagulation. She suggested that I should contact her investigations manager Dr. Nieto. I was unable to get hold of Dr. Nieto through the phone but her niece got hold of him and asked him to call me. He very kindly left a message on my phone with instructions hold her anticoagulation until she is seen by him as outpatient. Patient kindly agreed with the plan. Denies any history of gastritis, GERD, peptic ulcer or any GI malignancy. Monitor H&H and volume status. Follow-up recommendation. (2) Diabetes Qualifiers: Diabetes mellitus type: type 2 Is this a current diagnosis for this admission?: No Plan: Long-acting insulin, Accu-Chek, sliding insulin and pre-meal. Adjust dosage as needed. Hypoglycemic protocol. Hold oral hypoglycemics and resume upon discharge. Diabetic diet. (3) CAD (coronary artery disease) Qualifiers: Coronary Disease-Associated Artery/Lesion type: [place] artery Is this a current diagnosis for this admission?: Yes Plan: History of CAD with PCI and stent placement. Denies any active chest pain. Statins, beta-blockers and RONN. Hold antiplatelet. Restart once GI bleeding has stopped. (4) CHF (congestive heart failure) Qualifiers: Heart failure chronicity: unspecified Is this a current diagnosis for this admission?: Yes Plan: Not on exacerbation based on physical examination. No echo available. Hold Lasix for now until patient is stabilized. Monitor volume status. Cardiac diet. Outpatient cardiology follow-up. (5) COPD (chronic obstructive pulmonary disease) Qualifiers: COPD type: emphysema Emphysema type: unspecified Qualified Code(s): J43.9 - Emphysema, unspecified Is this a current diagnosis for this admission?: Yes Plan: Currently not on exacerbation. Saturating 100% on room air. (6) Hypertension Is this a current diagnosis for this admission?: Yes Plan: Euvolemic. Restart home antihypertensive medications. His meds as needed. PCP follow-up. (7) Chronic atrial fibrillation Is this a current diagnosis for this admission?: Yes Plan: Rate controlled. Continue beta-blockers. Hold Eliquis due to recent GI bleed. Please refer to problem #1 (8) Diverticulosis Is this a current diagnosis for this admission?: Yes Plan: Pandiverticulosis as per colonoscopy on 06/09/2018 which may have been the source of GI bleed. Encourage high fiber diet.
[2018-06-11 11:08] VITALS: BP 111/77
== END 2018-06-11 11:41 | disposition home or self-care (01) | DRG 379 ==
LOC: ER 19:00 → EH 21:30 → 3W 23:06
PROVIDERS: ADMIT Internal Medicine; ATTEND Internal Medicine
PROC: 0DJD8ZZ Inspection of Lower Intestinal Tract, Via Natural or Artificial Opening Endoscopic (ICD-10-PCS; principal; 2018-06-09 13:30)
PROC: 3E0234Z Introduction of Serum, Toxoid and Vaccine into Muscle, Percutaneous Approach (ICD-10-PCS; 2018-06-11)
DX: K57.31 Diverticulosis of large intestine without perforation or abscess with bleeding (principal); T45.515A Adverse effect of anticoagulants, initial encounter; I48.2 Chronic atrial fibrillation; I11.0 Hypertensive heart disease with heart failure; I50.9 Heart failure, unspecified; E11.8 Type 2 diabetes mellitus with unspecified complications; E78.5 Hyperlipidemia, unspecified; J44.9 Chronic obstructive pulmonary disease, unspecified; K21.9 Gastro-esophageal reflux disease without esophagitis; A63.0 Anogenital (venereal) warts; G25.81 Restless legs syndrome; F17.210 Nicotine dependence, cigarettes, uncomplicated; Z79.01 Long term (current) use of anticoagulants; Z79.84 Long term (current) use of oral hypoglycemic drugs; Z79.51 Long term (current) use of inhaled steroids; Z79.899 Other long term (current) drug therapy; Z23 Encounter for immunization; I25.2 Old myocardial infarction; Y92.018 Other place in single-family (private) house as the place of occurrence of the external cause
CPT/HCPCS: 36415; 45378; 80048; 82272; 82962; 85025; 85027; 85610; 85730; 86850; 86900; 86901; 90686; 99284; J0171; J1610; J1815; J2250; J2310; J2405; J2765; J3010; J3490; J7030; S0164

== ENCOUNTER 2018-08-27 12:26 | Inpatient (IN) | payer MEDICARE ==
--- NOTE | 2018-08-27 13:29 | ER Document Report ---
ED Medical Screen (RME) - General Chief Complaint: Palpitations Stated Complaint: IRREGULAR HEART BEAT Time Seen by Provider: 08/27/18 13:19 Primary Care Provider: SEGUN BOWMAN PA-C [Primary Care Provider] - Follow up as needed Notes: Patient is a 68-year-old female with COPD and atrial fibrillation on Eliquis that presents to the emergency department for chief complaint of palpitations, shortness of breath and cough. Patient states she has seen her primary care office today, for symptoms she is been having for the last several days which include cough, cold symptoms and shortness of breath. She was noted to be in atrial fibrillation with rapid ventricular response and EKG at that time, and was advised to come to the emergency department. She has been using albuterol recently for her symptoms. 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 ROS: Other than noted above, the 12 point review of systems was reviewed with the patient and were negative, all pertinent findings are included in the HPI. PHYSICAL EXAMINATION: Vital signs reviewed. GENERAL: Well-appearing, well-nourished and in no acute distress. HEAD: Atraumatic, normocephalic. EYES: Pupils equal round extraocular movements intact, conjunctiva are normal. ENT: Nares patent NECK: Normal range of motion CV: Heart rate borderline tachycardic, irregular rhythm. LUNGS: No respiratory distress Musculoskeletal: Normal range of motion NEUROLOGICAL: Normal speech PSYCH: Normal mood, normal affect. MDM: Patient seen and examined for rapid initial assessment. Vital signs reviewed. A comprehensive ED assessment and evaluation of the patient, analysis of test results and completion of the medical decision making process will be conducted by additional ED providers. *Note is created using voice recognition software and may contain spelling, syntax or grammatical errors. TRAVEL OUTSIDE OF THE [place] IN LAST 30 DAYS: No - Related Data Allergies/Adverse Reactions: shellfish derived Adverse Reaction (Verified 08/27/18 12:30) Passed out Past Medical History - Past Medical History Cardiac Medical History: Reports: Hx Atrial Fibrillation, Hx Congestive Heart Failure, Hx Coronary Artery Disease, Hx Heart Attack - 1 a stent, Hx Hypercholesterolemia, Hx Hypertension Pulmonary Medical History: Reports: Hx COPD Neurological Medical History: Denies: Hx Seizures Endocrine Medical History: Reports: Hx Diabetes Mellitus Type 2 Renal/ Medical History: Denies: Hx Peritoneal Dialysis GI Medical History: Reports: Hx Gastroesophageal Reflux Disease Psychiatric Medical History: Denies: Hx Depression Past Surgical History: Reports: Hx Cholecystectomy, Hx Hysterectomy Physical Exam - Vital signs Vitals: Temp Pulse Resp BP Pulse Ox 97.8 F 87 20 108/65 99 08/27/18 13:10 08/27/18 13:10 08/27/18 13:10 08/27/18 13:10 08/27/18 13:10 Course - Vital Signs Vital signs: Temp Pulse Resp BP Pulse Ox 97.8 F 87 20 108/65 99 08/27/18 13:10 08/27/18 13:10 08/27/18 13:10 08/27/18 13:10 08/27/18 13:10 Doctor's Discharge - Discharge Referrals: SEGUN BOWMAN PA-C [Primary Care Provider] - Follow up as needed
--- NOTE | 2018-08-27 14:07 | RADIOLOGY REPORT (SQ) ---
EXAM DESCRIPTION: CHEST SINGLE VIEW COMPLETED DATE/TIME: 08/27/2018 1:50 pm REASON FOR STUDY: shortness of breath COMPARISON: None. EXAM PARAMETERS: NUMBER OF VIEWS: One view. TECHNIQUE: Single frontal radiographic view of the chest acquired. RADIATION DOSE: NA LIMITATIONS: None. FINDINGS: LUNGS AND PLEURA: Mild, diffuse bilateral interstitial pulmonary opacity and probable smal l bilateral pleural effusions. MEDIASTINUM AND HILAR STRUCTURES: No masses. Contour normal. HEART AND VASCULAR STRUCTURES: Cardiomegaly. BONES: No acute findings. HARDWARE: None in the chest. OTHER: No other significant finding. IMPRESSION: Mild, diffuse bilateral interstitial pulmonary opacity and probable small bilateral pleu ral effusions, likely edema in the setting of cardiomegaly. No focal airspace opacity. TECHNICAL DOCUMENTATION: JOB ID: [id number] [employer]- All Rights Reserved Reading location - IP/workstation name: [email or web address]
[2018-08-27 14:45] LABS: ABSOLUTE BASOPHILS # (AUTO) 0.1 10^3/uL (0.0-0.2); ABSOLUTE EOSINOPHILS # (AUTO) 0.1 10^3/uL (0.0-0.6); ABSOLUTE LYMPHOCYTES (AUTO) 1.7 10^3/uL (0.5-4.7); ABSOLUTE MONOCYTES (AUTO) 0.5 10^3/uL (0.1-1.4); ABSOLUTE NEUT (AUTO) 5.1 10^3/uL (1.7-8.2); BASOPHILS % (AUTO) 1.1 % (0-2); EOSINOPHILS % (AUTO) 1.9 % (0-6); HEMATOCRIT 41.4 % (36.0-47.0); HEMOGLOBIN 13.7 g/dL (12.0-15.5); LYMPHOCYTES % (AUTO) 22.5 % (13-45); MEAN CORPUSCULAR HEMOGLOBIN 28.4 pg (27.0-33.4); MEAN CORPUSCULAR HGB CONC 33.1 g/dL (32.0-36.0); MEAN CORPUSCULAR VOLUME 86 fl (80-97); PLATELET COUNT 351 10^3/uL (150-450); RED BLOOD COUNT 4.82 10^6/uL (3.72-5.28); RED CELL DISTRIBUTION WIDTH 14.7 % (11.5-14.0); SEGMENTED NEUTROPHILS % (AUTO) 67.5 % (42-78); TOTAL CELLS COUNTED % (AUTO) 100 %; WHITE BLOOD COUNT 7.5 10^3/uL (4.0-10.5)
[2018-08-27 16:31] LABS: ALANINE AMINOTRANSFERASE 15 U/L (9-52); ALBUMIN 3.6 g/dL (3.5-5.0); ALKALINE PHOSPHATASE 92 U/L (38-126); ANION GAP 9 (5-19); ASPARTATE AMINO TRANSFERASE 18 U/L (14-36); BILIRUBIN,DIRECT 0.3 mg/dL (0.0-0.4); BILIRUBIN,TOTAL 0.6 mg/dL (0.2-1.3); BLOOD UREA NITROGEN 16 mg/dL (7-20); CALCIUM 9.4 mg/dL (8.4-10.2); CARBON DIOXIDE 30 mmol/L (22-30); CHLORIDE 98 mmol/L (98-107); GLUCOSE 258 mg/dL (75-110); POTASSIUM 4.5 mmol/L (3.6-5.0); SODIUM 136.9 mmol/L (137-145); TOTAL PROTEIN 6.7 g/dL (6.3-8.2)
[2018-08-27 16:54] LABS: TROPONIN I 1.31 ng/mL
[2018-08-27] MEDS ORDERED: ASPIRIN 81 MG TABLET, CHEWABLE PO ONE (17:25)
[2018-08-27] MEDS ORDERED: DILTIAZEM HCL INJ 25 MG/5 ML VIAL IV ONE ×2 (18:10→18:39)
[2018-08-27] MEDS ORDERED: ENOXAPARIN SODIUM INJ 80 MG/0.8 ML DISP.SYRIN SUBCUT SCH (18:11)
[2018-08-27] MEDS ORDERED: DILTIAZEM HCL/D5W 125 MG/125 ML RTUINJ IV PRN ×2 (18:11→21:01)
[2018-08-27] MEDS ORDERED: FUROSEMIDE INJ/PF 20 MG/2 ML SDV IV ONE (18:12)
--- NOTE | 2018-08-27 18:14 | ER Document Report ---
ED General - General Chief Complaint: Palpitations Stated Complaint: IRREGULAR HEART BEAT Time Seen by Provider: 08/27/18 13:19 Mode of Arrival: Ambulatory Information source: Patient, [facility] Records Notes: 68-year-old female with congestive heart failure, coronary artery disease, hyperlipidemia, hypertension, COPD, type 2 diabetes, atrial fibrillation presents with complaint of shortness of breath, productive cough. Patient states shortness of breath has been ongoing for several weeks. She was seen and treated for upper respiratory infection and completed doxycycline approximately 1 week ago. She states her symptoms have not improved and her shortness of breath has worsened. Patient has also experienced lower extremity edema, dyspnea with mild exertion, talking and laying flat. Patient does have a known history of atrial fibrillation and is on Eliquis, metoprolol. Patient denies associated fever, chills, chest pain, abdominal pain, nausea, vomiting, dysuria, hematuria. TRAVEL OUTSIDE OF THE [place] IN LAST 30 DAYS: No - HPI Onset: Other Onset/Duration: Gradual, Persistent, Worse Quality of pain: No pain Severity: Mild Associated symptoms: Productive cough, Shortness of breath. denies: Body/muscle aches, Chest pain, Fever, Nausea, Vomiting, Rhinnorhea Exacerbated by: Supine, Movement, Walking Relieved by: Denies Similar symptoms previously: Yes Recently seen / treated by doctor: Yes - Related Data Allergies/Adverse Reactions: shellfish derived Adverse Reaction (Verified 08/27/18 12:30) Passed out Past Medical History - General Information source: Patient - Social History Smoking Status: Former Smoker Chew tobacco use (# tins/day): No Frequency of alcohol use: None Drug Abuse: None Lives with: Family Family History: Reviewed & Not Pertinent Patient has suicidal ideation: No Patient has homicidal ideation: No - Past Medical History Cardiac Medical History: Reports: Hx Atrial Fibrillation, Hx Congestive Heart Failure, Hx Coronary Artery Disease, Hx Heart Attack - 1 a stent, Hx Hypercholesterolemia, Hx Hypertension Pulmonary Medical History: Reports: Hx COPD Neurological Medical History: Denies: Hx Seizures Endocrine Medical History: Reports: Hx Diabetes Mellitus Type 2 Renal/ Medical History: Denies: Hx Peritoneal Dialysis GI Medical History: Reports: Hx Gastroesophageal Reflux Disease Psychiatric Medical History: Reports: Hx Attention Deficit Hyperactivity Disorder Denies: Hx Depression Past Surgical History: Reports: Hx Cholecystectomy, Hx Hysterectomy - Immunizations Hx Pneumococcal Vaccination: 08/22/16 Review of Systems - Review of Systems Constitutional: Chills, Weakness, Recent illness. denies: Fever EENT: denies: Blurred vision, Nose congestion Cardiovascular: Palpitations, Dyspnea, Edema. denies: Chest pain, Lightheaded Respiratory: Cough, Short of breath Gastrointestinal: denies: Abdominal pain, Vomiting Genitourinary: denies: Dysuria Female Genitourinary: No symptoms reported Musculoskeletal: Leg swelling. denies: Back pain Skin: denies: Rash Hematologic/Lymphatic: No symptoms reported Neurological/Psychological: denies: Confusion, Weakness, Headaches -: Yes All other systems reviewed and negative Physical Exam - Vital signs Vitals: Temp Pulse Resp BP Pulse Ox 97.8 F 87 20 108/65 99 08/27/18 13:10 08/27/18 13:10 08/27/18 13:10 08/27/18 13:10 08/27/18 13:10 Interpretation: Normal - Notes Notes: PHYSICAL EXAMINATION: GENERAL: Well-appearing, well-nourished and in no acute distress. HEAD: Atraumatic, normocephalic. EYES: Pupils equal round and reactive to light, extraocular movements intact, conjunctiva are normal. ENT: Nares patent, oropharynx clear without exudates. Moist mucous membranes. NECK: Normal range of motion, supple without lymphadenopathy LUNGS: Visibly dyspneic. Breath sounds clear to auscultation bilaterally and equal. No wheezes rales or rhonchi. HEART: Tachycardic, regular rhythm. ABDOMEN: Soft, nontender, nondistended abdomen. No guarding, no rebound. No masses appreciated. Female : deferred Musculoskeletal: Normal range of motion, no pitting or edema. No cyanosis. NEUROLOGICAL: Cranial nerves grossly intact. Normal speech, normal gait. Normal sensory, motor exams PSYCH: Normal mood, normal affect. SKIN: Warm, Dry, normal turgor, no rashes or lesions noted. Course - Re-evaluation Re-evalutation: Laboratory 08/27/18 08/27/18 08/27/18 14:12 14:12 14:12 WBC 7.5 RBC 4.82 Hgb 13.7 Hct 41.4 MCV 86 MCH 28.4 MCHC 33.1 RDW 14.7 H Plt Count 351 Seg Neutrophils % 67.5 Lymphocytes % 22.5 Monocytes % 7.0 Eosinophils % 1.9 Basophils % 1.1 Absolute Neutrophils 5.1 Absolute Lymphocytes 1.7 Absolute Monocytes 0.5 Absolute Eosinophils 0.1 Absolute Basophils 0.1 Sodium Cancelled Potassium Cancelled Chloride Cancelled Carbon Dioxide Cancelled Anion Gap Cancelled BUN Cancelled Creatinine Cancelled Est GFR ( Amer) Cancelled Est GFR (Non-Af Amer) Cancelled Glucose Cancelled Calcium Cancelled Total Bilirubin Cancelled Direct Bilirubin Cancelled Neonat Total Bilirubin Cancelled Neonat Direct Bilirubin Cancelled Neonat Indirect Bili Cancelled AST Cancelled ALT Cancelled Alkaline Phosphatase Cancelled Troponin I Cancelled NT-Pro-B Natriuret Pep Total Protein Cancelled Albumin Cancelled 08/27/18 08/27/18 08/27/18 14:12 15:50 15:50 WBC RBC Hgb Hct MCV MCH MCHC RDW Plt Count Seg Neutrophils % Lymphocytes % Monocytes % Eosinophils % Basophils % Absolute Neutrophils Absolute Lymphocytes Absolute Monocytes Absolute Eosinophils Absolute Basophils Sodium 136.9 L Potassium 4.5 Chloride 98 Carbon Dioxide 30 Anion Gap 9 BUN 16 Creatinine 0.58 Est GFR ( Amer) > 60 Est GFR (Non-Af Amer) > 60 Glucose 258 H Calcium 9.4 Total Bilirubin 0.6 Direct Bilirubin 0.3 Neonat Total Bilirubin Not Reportable Neonat Direct Bilirubin Not Reportable Neonat Indirect Bili Not Reportable AST 18 ALT 15 Alkaline Phosphatase 92 Troponin I 1.310 NT-Pro-B Natriuret Pep Cancelled 5110 H Total Protein 6.7 Albumin 3.6 08/27/18 19:20 WBC RBC Hgb Hct MCV MCH MCHC RDW Plt Count Seg Neutrophils % Lymphocytes % Monocytes % Eosinophils % Basophils % Absolute Neutrophils Absolute Lymphocytes Absolute Monocytes Absolute Eosinophils Absolute Basophils Sodium Potassium Chloride Carbon Dioxide Anion Gap BUN Creatinine Est GFR ( Amer) Est GFR (Non-Af Amer) Glucose Calcium Total Bilirubin Direct Bilirubin Neonat Total Bilirubin Neonat Direct Bilirubin Neonat Indirect Bili AST ALT Alkaline Phosphatase Troponin I 1.340 NT-Pro-B Natriuret Pep Total Protein Albumin Chest X-Ray 08/27/18 13:29 IMPRESSION: Mild, diffuse bilateral interstitial pulmonary opacity and probable small bilateral pleural effusions, likely edema in the setting of cardiomegaly. No focal airspace opacity. Chest CT 08/27/18 19:07 IMPRESSION: No acute pulmonary disease. Coronary artery calcification. Temp Pulse Resp BP Pulse Ox 97.8 F 87 24 H 108/65 96 08/27/18 13:10 08/27/18 13:10 08/27/18 18:12 08/27/18 13:10 08/27/18 18:12 08/27/18 18:13 Bedside ultrasound was obtained and did not show significant pericardial effusion but did show diffuse B-lines in the right and left lower lung field indicative of interstitial edema. Patient's troponin was found to be elevated at 1.3. Patient was administered aspirin, Lovenox. EKG shows the patient to be in atrial fibrillation with rapid ventricular rate of 140. Cardizem was administered and patient was placed on Cardizem drip. Patient was also placed on BiPAP. 08/27/18 19:06 Patient reevaluated now her heart rate is 93 with a blood pressure of 117/76. Repeat troponin pending. 08/27/18 20:21 Hospitalist contacted for admission and request cardiology consult. I did speak to Dr. Sifuentes who will review the patient's medical record and get back to me regarding whether the patient is a appropriate candidate to be hospitalized here. 08/27/18 20:49 Dr. Sifuentes has accepted the patient and states that she can stay in the hospital. He is requesting previous medical records where the patient had her stent done which she reports to be [facility]. Request sent. patient is very happy with this. Dr. Cartagena made aware. Repeat troponin is similar to first. Patient reevaluated and she reports significant improvement with her shortness of breath. Heart rate has not exceeded 110 on her Cardizem drip. 08/27/18 21:05 08/27/18 23:10 - Vital Signs Vital signs: Temp Pulse Resp BP Pulse Ox 97.8 F 87 41 H 115/72 100 08/27/18 13:10 08/27/18 13:10 08/27/18 22:52 08/27/18 22:48 08/27/18 22:52 - Laboratory Result Diagrams: 08/27/18 14:12 08/27/18 15:50 Laboratory results interpreted by me: 08/27/18 08/27/18 08/27/18 14:12 15:50 15:50 RDW 14.7 H Sodium 136.9 L Glucose 258 H NT-Pro-B Natriuret Pep 5110 H - Diagnostic Test Radiology reviewed: Image reviewed, Reports reviewed - EKG Interpretation by Me Rate: Tachycardia Rhythm: A.Fib, Other - RVR When compared to previous EKG there are: Previous EKG unavailable Critical Care Note - Critical Care Note Total time excluding time spent on procedures (mins): 40 - Minutes of critical care time spent in direct contact evaluating and reevaluating the patient, treating symptoms, reviewing labs and studies and speaking with family and consultants excluding any procedures Discharge - Discharge Clinical Impression: Atrial fibrillation with RVR, Diabetes mellitus type 2 in obese, Elevated troponin CHF (congestive heart failure) Qualifiers: Heart failure type: unspecified Heart failure chronicity: unspecified Qualified Code(s): I50.9 - Heart failure, unspecified CAD (coronary artery disease) Qualifiers: Coronary Disease-Associated Artery/Lesion type: [place] artery [place] vs. transplanted heart: [place] heart Associated angina: without angina Qualified Code(s): I25.10 - Atherosclerotic heart disease of [place] coronary artery without angina pectoris Condition: Good Disposition: ADMITTED INPATIENT Admitting Provider: Hospitalist Unit Admitted: [facility]
[2018-08-27] MEDS ORDERED: DIPHENHYDRAMINE HCL 50 MG/ML VIAL IV ONE (18:18)
[2018-08-27] MEDS ORDERED: METHYLPREDNISOLONE INJ 125 MG/2 ML SDV IV ONE (18:18)
[2018-08-27] MEDS ORDERED: FAMOTIDINE INJ/PF 20 MG/2 ML SDV IV ONE (18:18)
--- NOTE | 2018-08-27 19:53 | RADIOLOGY REPORT (SQ) ---
EXAM DESCRIPTION: CT CHEST WITHOUT COMPLETED DATE/TIME: 08/27/2018 7:27 pm REASON FOR STUDY: sob COMPARISON: Chest radiograph TECHNIQUE: CT scan performed of the chest without intravenous contrast. Images reviewed with lung, soft tissue and bone windows. Reconstructed coronal and sagittal MPR images reviewed. All images st ored on PACS. All CT scanners at this facility use dose modulation, iterative reconstruction, and/or weight based d osing when appropriate to reduce radiation dose to as low as reasonably achievable (ALARA). [facility]: Dose Right [facility]: CareDose [facility]: Dose Right [facility]: Teradose 4D [facility]: [employer] RADIATION DOSE: CT Rad equipment meets quality standard of care and radiation dose reduction techniq ues were employed. CTDIvol: 10.7 mGy. DLP: 435 mGy-cm. mGy. LIMITATIONS: No technical limitations. FINDINGS: LUNGS AND PLEURA: No masses, infiltrates, or pneumothorax. No pleural effusions or pleura l calcifications. Minimal scarring at the lung bases. HILAR AND MEDIASTINAL STRUCTURES: No identified masses or abnormal nodes. No obvious aneurysm. Mult iple small nodes. HEART AND VASCULAR STRUCTURES: No aneurysm. No pericardial effusion. Coronary artery calcification. UPPER ABDOMEN: No significant findings. Limited exam. THYROID AND OTHER SOFT TISSUES: No masses. No adenopathy. BONES: No significant finding. HARDWARE: None in the chest. OTHER: No other significant findings. IMPRESSION: No acute pulmonary disease. Coronary artery calcification. TECHNICAL DOCUMENTATION: JOB ID: [id number] Quality ID # [id number]: Final reports with documentation of one or more dose reduction techniques (e.g., Au tomated exposure control, adjustment of the mA and/or kV according to patient size, use of iterative reconstruction technique) 2010 [employer]- All Rights Reserved Reading location - IP/workstation name: [email or web address]
[2018-08-27] MEDS ORDERED: MAGNESIUM HYDROXIDE SUSP 30 ML UDCUP PO PRN (20:50)
[2018-08-27] MEDS ORDERED: ONDANSETRON HCL INJ/PF 4 MG/2 ML SDV IV PRN (20:50)
[2018-08-27] MEDS ORDERED: MAG HYDROX/AL HYDROX/SIMETH SUSP 30 ML UDCUP PO PRN (20:50)
[2018-08-27] MEDS ORDERED: LEVALBUTEROL HCL NEB 1.25 MG/3 ML AMPUL NEB PRN (20:50)
[2018-08-27] MEDS ORDERED: ONDANSETRON 4 MG TAB.RAPDIS PO PRN (20:50)
[2018-08-27] MEDS ORDERED: NALBUPHINE HCL INJ 10 MG/1 ML AMPULE IV PRN (21:03)
[2018-08-27] MEDS ORDERED: ACETAMINOPHEN 325 MG TABLET PO PRN (21:03)
[2018-08-27] MEDS ORDERED: GLUCAGON,HUMAN RECOMB 1 MG INJ IM PRN (21:03)
[2018-08-27] MEDS ORDERED: DEXTROSE 40% GEL 15 GM TUBE PO PRN ×2 (21:03)
[2018-08-27] MEDS ORDERED: NICOTINE 21 MG/24 HR PATCH.TD24 TD PRN (21:03)
[2018-08-27] MEDS ORDERED: DEXTROSE 50%-WATER 25 GM/50 ML DISP.SYRIN IV PRN ×2 (21:03)
--- NOTE | 2018-08-27 21:06 | EKG REPORT ---
SEVERITY:- ABNORMAL ECG - ATRIAL FIBRILLATION, V-RATE 87-183 BORDERLINE T ABNORMALITIES, ANTERIOR LEADS : Confirmed by: Shanita Hendrix 27-Aug-2018 21:05:43
[2018-08-27] MEDS ORDERED: PRAMIPEXOLE DI HCL 0.25 MG PO SCH (22:00)
[2018-08-27 22:20] LABS: CREATINE KINASE MB 1.38 ng/mL (<4.55); TROPONIN I 1.35 ng/mL
[2018-08-27] MEDS ORDERED: ATORVASTATIN CALCIUM 40 MG TABLET PO ONE (23:15)
--- NOTE | 2018-08-27 23:25 | PDOC H&P ---
History of Present Illness Admission Date/PCP: SEGUN BOWMAN PA-C Patient complains of: Dyspnea with palpitations History of Present Illness: PHILIPPE LACEY is a 68 year old female who presented to the emergency room with a 3-week history of dyspnea. She admits the onset of dyspnea approximately 3 weeks ago associated with a productive cough (thick yellowish green mucus) that was treated with a course of oral doxycycline which she completed 1 week ago without noticeable improvement. Her dyspnea continued to worsen until on the day of admission she noted a dramatic increase to severe dyspnea associated with palpitations and orthopnea as well as increased edema of her bilateral lower extremities and noticeably increased dyspnea with any exertion. She admits having prior similar episodes in the past on several occasions and has not identified any other aggravating or ameliorating factors for her dyspnea. She does admit a past history of atrial fibrillation, congestive heart failure, coronary artery disease, hypertension, COPD, type 2 diabetes mellitus and hyperlipidemia for which she is currently being treated. In the emergency room she was found to have atrial fibrillation with a rapid ventricular response which responded well to intravenous Cardizem. Her rate has continued to be well controlled with a Cardizem infusion. She was somewhat hypoxic and was treated with nebulizer therapy and BiPAP to which she has showed an excellent response. She was also noted to have an increased serum troponin at 1.[address] Sifuentes was consulted and agreed to see the patient in consultation and assist in her management. She was therefore admitted to the hospital for further evaluation and treatment. Past Medical History Cardiac Medical History: Reports: Atrial Fibrillation, Congestive Heart Failure, Coronary Artery Disease, Myocardial Infarction - 1 a stent, Hyperlipidema, Hypertension Denies: DVT, Pulmonary Embolism Pulmonary Medical History: Reports: Chronic Obstructive Pulmonary Disease (COPD), Respiratory Failure Denies: Intubation EENT Medical History: Reports: None Neurological Medical History: Denies: Multiple Sclerosis, Seizures Endocrine Medical History: Reports: Diabetes Mellitus Type 2 Denies: Hyperthyroidism, Hypothyroidism Renal/ Medical History: Denies: Chronic Kidney Disease, Nephrolithiasis Malignancy Medical History: Reports: None GI Medical History: Reports: Gastroesophageal Reflux Disease Denies: Cirrhosis, Hepatitis Musculoskeltal Medical History: Denies: Arthritis, Gout Skin Medical History: Denies: Eczema, Psoriasis Psychiatric Medical History: Reports: Attention Deficit Hyperactivity Disorder Denies: Alcohol Dependency, Depression, Substance Abuse, Tobacco Dependency Traumatic Medical History: Reports: None Hematology: Denies: Anemia, Bleeding Tendencies Infectious Medical History: Reports: None Past Surgical History Past Surgical History: Reports: Cardiac Catheterization, Coronary Stent, Hysterectomy Social History Lives with: Family Smoking Status: Former Smoker Frequency of Alcohol Use: None Hx Recreational Drug Use: No Drugs: None Hx Prescription Drug Abuse: No - Advance Directive Resuscitation Status: Full Code Surrogate healthcare decision maker:: Jessenia Carbajal Family History Family History: CAD, DM, Hypertension, Other - Kidney disease. denies: Malignancy Parental Family History Reviewed: Yes Children Family History Reviewed: No Sibling(s) Family History Reviewed.: Yes Medication/Allergy Home Medications: Apixaban [Eliquis 5 mg Tablet] 08/27/18 Fluticasone/Salmeterol [Advair 250-50 Diskus 14 Dose/Diskus] 08/27/18 Furosemide [Lasix 40 mg Tablet] 08/27/18 Gabapentin [Neurontin 100 mg Capsule] 08/27/18 Glipizide [Glucotrol 5 mg Tablet] 08/27/18 Rosuvastatin Calcium 08/27/18 Allergies/Adverse Reactions: shellfish derived Adverse Reaction (Verified 08/27/18 12:30) Passed out Review of Systems Constitutional: ABSENT: chills, fever(s) Eyes: ABSENT: visual disturbances, other - Ocular pain Ears: ABSENT: hearing changes, other - Ear pain Nose, Mouth, and Throat: ABSENT: mouth pain, sore throat Cardiovascular: PRESENT: as per HPI, dyspnea on exertion, edema, orthropnea, palpitations. ABSENT: chest pain Respiratory: PRESENT: as per HPI, cough, dyspnea, sputum. ABSENT: hemoptysis Gastrointestinal: ABSENT: abdominal pain, constipation, diarrhea, nausea, vomiting Genitourinary: ABSENT: dysuria, hematuria Musculoskeletal: ABSENT: deformity, joint swelling Integumentary: ABSENT: pruritus, rash Neurological: ABSENT: confusion, convulsions, memory loss Psychiatric: ABSENT: anxiety, depression Endocrine: ABSENT: cold intolerance, heat intolerance Hematologic/Lymphatic: ABSENT: easy bleeding, easy bruising Physical Exam Vital Signs: Temp Pulse Resp BP Pulse Ox 97.8 F 87 24 H 108/65 96 08/27/18 13:10 08/27/18 13:10 08/27/18 18:12 08/27/18 13:10 08/27/18 18:12 Intake & Output 08/25/18 08/26/18 08/27/18 23:59 23:59 23:59 Weight 69.3 kg General appearance: PRESENT: no acute distress, cooperative, other - On BiPAP Head exam: PRESENT: atraumatic, normocephalic Eye exam: PRESENT: conjunctiva pink, EOMI. ABSENT: scleral icterus Ear exam: PRESENT: normal external ear exam. ABSENT: bleeding, drainage Mouth exam: PRESENT: dry mucosa, neck supple Neck exam: ABSENT: JVD, thyromegaly, tracheal deviation Respiratory exam: PRESENT: decreased breath sounds - Breath sounds mildly decreased throughout the anterior chest, prolonged expiratory phas - Mildly prolonged expiratory phase in all vera, symmetrical, wheezes - Expiratory wheezes in all vera, other - On BiPAP. ABSENT: rales Cardiovascular exam: PRESENT: irregular rhythm - Irregularly irregular rate and rhythm. ABSENT: clicks, gallop, rubs Pulses: PRESENT: normal radial pulses, normal dorsalis pedis pul Vascular exam: PRESENT: normal capillary refill. ABSENT: pallor GI/Abdominal exam: PRESENT: normal bowel sounds, soft Rectal exam: PRESENT: deferred Extremities exam: PRESENT: pedal edema, +2 edema - Bilateral lower extremities with pitting pretibial edema. ABSENT: joint swelling Musculoskeletal exam: ABSENT: deformity, dislocation Neurological exam: PRESENT: alert, oriented to person, oriented to place, oriented to time, oriented to situation, CN II-XII grossly intact. ABSENT: motor sensory deficit Psychiatric exam: PRESENT: appropriate affect, normal mood Skin exam: PRESENT: dry, intact, warm. ABSENT: jaundice, rash, urticaria Results Laboratory Results: 08/27/18 14:12 08/27/18 15:50 08/27/18 08/27/18 08/27/18 14:12 14:12 15:50 WBC 7.5 RBC 4.82 Hgb 13.7 Hct 41.4 MCV 86 MCH 28.4 MCHC 33.1 RDW 14.7 H Plt Count 351 Seg Neutrophils % 67.5 Lymphocytes % 22.5 Monocytes % 7.0 Eosinophils % 1.9 Basophils % 1.1 Absolute Neutrophils 5.1 Absolute Lymphocytes 1.7 Absolute Monocytes 0.5 Absolute Eosinophils 0.1 Absolute Basophils 0.1 Sodium Cancelled 136.9 L Potassium Cancelled 4.5 Chloride Cancelled 98 Carbon Dioxide Cancelled 30 Anion Gap Cancelled 9 BUN Cancelled 16 Creatinine Cancelled 0.58 Est GFR ( Amer) Cancelled > 60 Est GFR (Non-Af Amer) Cancelled > 60 Glucose Cancelled 258 H Calcium Cancelled 9.4 Total Bilirubin Cancelled 0.6 AST Cancelled 18 ALT Cancelled 15 Alkaline Phosphatase Cancelled 92 Total Protein Cancelled 6.7 Albumin Cancelled 3.6 08/27/18 08/27/18 08/27/18 14:12 14:12 15:50 Troponin I Cancelled 1.310 NT-Pro-B Natriuret Pep Cancelled 5110 H 08/27/18 19:20 Troponin I 1.340 NT-Pro-B Natriuret Pep Impressions: Chest X-Ray 08/27/18 13:29 IMPRESSION: Mild, diffuse bilateral interstitial pulmonary opacity and probable small bilateral pleural effusions, likely edema in the setting of cardiomegaly. No focal airspace opacity. Chest CT 08/27/18 19:07 IMPRESSION: No acute pulmonary disease. Coronary artery calcification. Assessment & Plan - Diagnosis (1) Atrial fibrillation with RVR Is this a current diagnosis for this admission?: Yes Plan: Patient will be continued on a Cardizem infusion for rate control until such time as oral agents can be placed for rate control and it is deemed appropriate to do so by the industrial rehabilitation consultant Dr. Sifuentes (2) CAD (coronary artery disease) Qualifiers: Coronary Disease-Associated Artery/Lesion type: [place] artery [place] vs. transplanted heart: [place] heart Associated angina: without angina Qualified Code(s): I25.10 - Atherosclerotic heart disease of [place] coronary artery without angina pectoris Is this a current diagnosis for this admission?: Yes Plan: Patient will be evaluated by Dr. Sifuentes in consultation and treatment as well as further evaluation will be per his recommendations. Serial cardiac enzymes and EKGs will be obtained to evaluate the potential of an acute myocardial infarction (non-STEMI) or significant myocardial ischemia. (3) Diabetes mellitus type 2 in nonobese Is this a current diagnosis for this admission?: Yes Plan: Patient will be continued on her current diabetic regiment and a hemoglobin A1c will be obtained to evaluate her current therapy. (4) CHF (congestive heart failure) Qualifiers: Heart failure type: unspecified Heart failure chronicity: unspecified Qualified Code(s): I50.9 - Heart failure, unspecified Is this a current diagnosis for this admission?: Yes Plan: Patient has a history of congestive heart failure and will be converted to metoprolol succinate as a more appropriate therapeutic agent for CHF. Additionally spironolactone will be added to her regimen. Further changes and adjustments in therapy as well as further evaluation will be determined by Dr. Sifuentes. (5) COPD (chronic obstructive pulmonary disease) Qualifiers: COPD type: emphysema Emphysema type: unspecified Qualified Code(s): J43.9 - Emphysema, unspecified Is this a current diagnosis for this admission?: Yes Plan: Patient will be continued on her current COPD medications and will utilize Xopen ex delivered via nebulizer on a as needed basis for acute symptoms. (6) Hypertension Qualifiers: Hypertension type: essential hypertension Qualified Code(s): I10 - Essential (primary) hypertension Is this a current diagnosis for this admission?: Yes Plan: Patient will be and on her cardiac medications as described above with changes made as described above in discussion of her congestive heart failure. Further treatment will be coordinated with Dr. Sifuentes who will be seeing the patient in consultation. - Time Time Spent: 30 to 50 Minutes Critical Time spent with patient: Less than 15 minutes Medications reviewed and adjusted accordingly: Yes Anticipated discharge: Home - Inpatient Certification Based on my medical assessment, after consideration of the patient's comorbidities, presenting symptoms, or acuity I expect that the services needed warrant INPATIENT care.: Yes I certify that my determination is in accordance with my understanding of Medicare's requirements for reasonable and necessary INPATIENT services [42 CFR 412.3e].: Yes Medical Necessity: Significant Comorbidiites Make Outpatient Treatment Too Risky, Need Close Monitoring Due to Risk of Patient Decompensation, Need For Continuous Telemetry Monitoring, Risk of Complication if Not Cared For in Hospital
[2018-08-28] MEDS: APIXABAN 5 MG TABLET PO SCH ×2 (00:10→09:42)
[2018-08-28] MEDS: FAMOTIDINE 20 MG TABLET PO SCH ×3 (00:10→21:57)
[2018-08-28] MEDS: METOPROLOL SUCCINATE 25 MG TAB.SR.24H PO SCH ×3 (00:10→21:56)
[2018-08-28] MEDS ORDERED: DILTIAZEM HCL 30 MG TABLET PO ONE (04:30)
[2018-08-28 05:17] LABS: ABSOLUTE BASOPHILS # (AUTO) 0.1 10^3/uL (0.0-0.2); ABSOLUTE EOSINOPHILS # (AUTO) 0.2 10^3/uL (0.0-0.6); ABSOLUTE LYMPHOCYTES (AUTO) 1.7 10^3/uL (0.5-4.7); ABSOLUTE MONOCYTES (AUTO) 0.6 10^3/uL (0.1-1.4); ABSOLUTE NEUT (AUTO) 4.4 10^3/uL (1.7-8.2); BASOPHILS % (AUTO) 1.2 % (0-2); EOSINOPHILS % (AUTO) 3.1 % (0-6); HEMATOCRIT 37.8 % (36.0-47.0); LYMPHOCYTES % (AUTO) 23.9 % (13-45); MEAN CORPUSCULAR HEMOGLOBIN 29.1 pg (27.0-33.4); MEAN CORPUSCULAR HGB CONC 34.2 g/dL (32.0-36.0); MEAN CORPUSCULAR VOLUME 85 fl (80-97); MONOCYTES % (AUTO) 8.9 % (3-13); PLATELET COUNT 287 10^3/uL (150-450); RED BLOOD COUNT 4.45 10^6/uL (3.72-5.28); RED CELL DISTRIBUTION WIDTH 14.2 % (11.5-14.0); SEGMENTED NEUTROPHILS % (AUTO) 62.9 % (42-78); TOTAL CELLS COUNTED % (AUTO) 100 %; WHITE BLOOD COUNT 6.9 10^3/uL (4.0-10.5)
[2018-08-28 05:39] LABS: ANION GAP 11 (5-19); BLOOD UREA NITROGEN 17 mg/dL (7-20); CALCIUM 9.2 mg/dL (8.4-10.2); CARBON DIOXIDE 27 mmol/L (22-30); CHLORIDE 100 mmol/L (98-107); CHOLESTEROL 148.12 mg/dL (0-200); GLUCOSE 219 mg/dL (75-110); POTASSIUM 4.4 mmol/L (3.6-5.0); SODIUM 138.3 mmol/L (137-145); TRIGLYCERIDES 107 mg/dL (<150)
[2018-08-28 05:49] LABS: CREATINE KINASE MB 1.52 ng/mL (<4.55); DIRECT LDL 108 mg/dL (<100)
[2018-08-28 05:55] LABS: FREE T3 3.81 pg/mL (2.77-5.27); FREE T4 (FREE THYROXINE) 2.29 ng/dL (0.78-2.19)
[2018-08-28 06:08] LABS: TROPONIN I 1.23 ng/mL
[2018-08-28 06:09] LABS: THYROID STIMULATING HORMONE 1.64 uIU/mL (0.47-4.68)
[2018-08-28] MEDS: INSULIN REG, HUMAN 100 UNIT/ML 3 ML VIAL (PYX) SUBCUT PRN ×2 (08:10→12:34)
--- NOTE | 2018-08-28 09:34 | EKG REPORT ---
SEVERITY:- ABNORMAL ECG - ATRIAL FIBRILLATION, V-RATE 72-153 BORDERLINE R WAVE PROGRESSION, ANTERIOR LEADS : Confirmed by: Shanita Hendrix 28-Aug-2018 09:34:05
[2018-08-28] MEDS: ASPIRIN 81 MG TABLET, ENT COATED PO SCH (09:42)
[2018-08-28] MEDS: DOCUSATE SODIUM 100 MG CAPSULE PO SCH ×2 (09:42→17:51)
[2018-08-28] MEDS: SPIRONOLACTONE 25 MG TABLET PO SCH (09:42)
[2018-08-28 09:50] LABS: CREATINE KINASE MB 1.7 ng/mL (<4.55); TROPONIN I 1.12 ng/mL
[2018-08-28] MEDS ORDERED: TICAGRELOR 90 MG TABLET PO SCH (10:00)
[2018-08-28] MEDS ORDERED: LISINOPRIL 10 MG TABLET PO SCH (10:00)
[2018-08-28] MEDS ORDERED: (PENDING PHARMACY ID) (Empagliflozin [Jardiance] 10 MG) PO SCH (10:00)
[2018-08-28] MEDS ORDERED: DILTIAZEM HCL 30 MG TABLET PO SCH (12:00)
[2018-08-28] MEDS: FUROSEMIDE 40 MG TABLET PO SCH (12:34)
[2018-08-28] MEDS: TICAGRELOR 90 MG TABLET PO SCH ×2 (12:34→21:57)
[2018-08-28] MEDS: FLUTICASONE/SALMETEROL DISKUS 250-50 MCG/DOSE IH SCH ×2 (12:35→21:56)
[2018-08-28] MEDS: GLIPIZIDE 5 MG TABLET PO SCH ×2 (12:35→17:59)
[2018-08-28] MEDS ORDERED: GLUCAGON,HUMAN RECOMB 1 MG INJ IM PRN (15:46)
[2018-08-28] MEDS ORDERED: DEXTROSE 50%-WATER 25 GM/50 ML DISP.SYRIN IV PRN ×2 (15:46)
[2018-08-28] MEDS ORDERED: DEXTROSE 40% GEL 15 GM TUBE PO PRN ×2 (15:46)
[2018-08-28] MEDS: INSULIN REG, HUMAN 100 UNIT/ML 3 ML VIAL (PYX) SUBCUT SCH ×2 (17:58→21:58)
[2018-08-28] MEDS: DILTIAZEM HCL 30 MG TABLET PO SCH (18:00)
--- NOTE | 2018-08-28 21:41 | PDOC PROGRESS REPORT ---
Subjective Progress Note for:: 08/28/18 Subjective:: Still feels poorly. Surprising since her rate has exhibited good control. Reason For Visit: ARTRIAL FIBRILLATION WITH RAPID VENTRICULAR RESPON Physical Exam Vital Signs: Temp Pulse Resp BP Pulse Ox 97.9 F 82 18 96/85 L 99 08/28/18 19:30 08/28/18 19:30 08/28/18 19:30 08/28/18 19:30 08/28/18 19:30 Intake & Output 08/27/18 08/28/18 08/29/18 06:59 06:59 06:59 Intake Total 700 Balance 700 Weight 68 kg 68 kg General appearance: PRESENT: no acute distress, cooperative Respiratory exam: PRESENT: clear to auscultation ana. ABSENT: rales, rhonchi, wheezes Cardiovascular exam: PRESENT: irregular rhythm GI/Abdominal exam: PRESENT: normal bowel sounds, soft. ABSENT: tenderness Neurological exam: PRESENT: alert, awake, oriented to person, oriented to place, oriented to situation Psychiatric exam: PRESENT: flat affect. ABSENT: agitated, anxious Results Laboratory Results: 08/28/18 04:23 08/28/18 04:23 08/28/18 08/28/18 08/28/18 04:23 04:23 04:23 WBC 6.9 RBC 4.45 Hgb 13.0 Hct 37.8 MCV 85 MCH 29.1 MCHC 34.2 RDW 14.2 H Plt Count 287 Seg Neutrophils % 62.9 Lymphocytes % 23.9 Monocytes % 8.9 Eosinophils % 3.1 Basophils % 1.2 Absolute Neutrophils 4.4 Absolute Lymphocytes 1.7 Absolute Monocytes 0.6 Absolute Eosinophils 0.2 Absolute Basophils 0.1 Sodium 138.3 Potassium 4.4 Chloride 100 Carbon Dioxide 27 Anion Gap 11 BUN 17 Creatinine 0.56 Est GFR ( Amer) > 60 Est GFR (Non-Af Amer) > 60 Glucose 219 H Calcium 9.2 Magnesium 1.7 Triglycerides 107 Cholesterol 148.12 LDL Cholesterol Direct 108 H VLDL Cholesterol 21.0 HDL Cholesterol 24 L TSH 1.64 Free T4 2.29 H Free T3 pg/mL 3.81 08/27/18 08/27/18 08/27/18 14:12 14:12 15:50 Creatine Kinase CK-MB (CK-2) Troponin I Cancelled 1.310 NT-Pro-B Natriuret Pep Cancelled 5110 H 08/27/18 08/27/18 08/27/18 19:20 21:36 21:36 Creatine Kinase 40 CK-MB (CK-2) 1.38 Troponin I 1.340 1.350 NT-Pro-B Natriuret Pep 08/28/18 08/28/18 08/28/18 04:23 04:23 09:13 Creatine Kinase 45 48 CK-MB (CK-2) 1.52 Troponin I 1.230 NT-Pro-B Natriuret Pep 08/28/18 09:13 Creatine Kinase CK-MB (CK-2) 1.70 Troponin I 1.120 NT-Pro-B Natriuret Pep Impressions: Chest X-Ray 08/27/18 13:29 IMPRESSION: Mild, diffuse bilateral interstitial pulmonary opacity and probable small bilateral pleural effusions, likely edema in the setting of cardiomegaly. No focal airspace opacity. Chest CT 08/27/18 19:07 IMPRESSION: No acute pulmonary disease. Coronary artery calcification. Assessment & Plan - Diagnosis (1) Atrial fibrillation with RVR Is this a current diagnosis for this admission?: Yes Plan: And a brief visit to the patient yesterday after admission by the optical coating technician she did not feel appreciably better. Today she exhibits better rate control but still does not "feel better ". I was unable to obtain the records from her wine fermenter. The diltiazem is new and in combination with the metoprolol is having a positive effect on good rate control. Her blood pressure is on the low side and this could be making her feel fatigued. I am going to decrease her lisinopril first and then make other adjustments as indicated. Continue the metoprolol and diltiazem for good rate control. (2) COPD (chronic obstructive pulmonary disease) Qualifiers: COPD type: emphysema Emphysema type: unspecified Qualified Code(s): J43.9 - Emphysema, unspecified Is this a current diagnosis for this admission?: Yes Plan: Lungs sound clear. Continue current inhaler regimen. (3) Hypertension Qualifiers: Hypertension type: essential hypertension Qualified Code(s): I10 - Essential (primary) hypertension Is this a current diagnosis for this admission?: Yes Plan: As noted above the patient's blood pressure has been running on the low side. I will decrease lisinopril since the diltiazem and metoprolol are providing good rate control. (4) Current use of fpc anticoagulation Is this a current diagnosis for this admission?: Yes Plan: Review of records reveals that the patient was only on 2.5 mg of apixaban twice daily. I have adjusted the dose. (5) Diabetes mellitus type 2 in nonobese Is this a current diagnosis for this admission?: Yes (6) Restless leg syndrome Is this a current diagnosis for this admission?: Yes Plan: Resume Mirapex. The patient was also on gabapentin 300 mg at night. This was resumed as well. - Time Time Spent with patient: 15-24 minutes Medications reviewed and adjusted accordingly: Yes Anticipated discharge: Home
[2018-08-28] MEDS: GABAPENTIN 300 MG CAPSULE PO SCH (21:57)
[2018-08-28] MEDS: APIXABAN 2.5 MG TABLET PO SCH (21:58)
[2018-08-28] MEDS: ROPINIROLE HCL 1 MG TABLET PO SCH (21:58)
[2018-08-28] MEDS: PRAMIPEXOLE DI-HCL 0.25 MG TABLET PO SCH (21:58)
[2018-08-28] MEDS: ATORVASTATIN CALCIUM 40 MG TABLET PO SCH (21:58)
[2018-08-28] MEDS ORDERED: APIXABAN 5 MG TABLET PO SCH (22:00)
[2018-08-29] MEDS: DILTIAZEM HCL 30 MG TABLET PO SCH ×5 (00:25→23:52)
[2018-08-29 04:53] LABS: HEMATOCRIT 38.5 % (36.0-47.0); MEAN CORPUSCULAR HEMOGLOBIN 28.7 pg (27.0-33.4); MEAN CORPUSCULAR HGB CONC 33.8 g/dL (32.0-36.0); MEAN CORPUSCULAR VOLUME 85 fl (80-97); PLATELET COUNT 297 10^3/uL (150-450); RED BLOOD COUNT 4.52 10^6/uL (3.72-5.28); RED CELL DISTRIBUTION WIDTH 14.3 % (11.5-14.0); WHITE BLOOD COUNT 7.5 10^3/uL (4.0-10.5)
[2018-08-29 05:23] LABS: ANION GAP 11 (5-19)
[2018-08-29 05:56] LABS: BLOOD UREA NITROGEN 17 mg/dL (7-20); CARBON DIOXIDE 28 mmol/L (22-30); CHLORIDE 99 mmol/L (98-107); GLUCOSE 180 mg/dL (75-110); POTASSIUM 3.9 mmol/L (3.6-5.0); SODIUM 137.8 mmol/L (137-145)
[2018-08-29] MEDS: INSULIN REG, HUMAN 100 UNIT/ML 3 ML VIAL (PYX) SUBCUT SCH ×4 (08:07→22:31)
[2018-08-29] MEDS: GLIPIZIDE 5 MG TABLET PO SCH ×2 (08:10→17:34)
[2018-08-29] MEDS: FUROSEMIDE 40 MG TABLET PO SCH (08:11)
[2018-08-29] MEDS: DOCUSATE SODIUM 100 MG CAPSULE PO SCH ×2 (09:56→22:50)
[2018-08-29] MEDS: FLUTICASONE/SALMETEROL DISKUS 250-50 MCG/DOSE IH SCH ×2 (09:56→22:27)
[2018-08-29] MEDS: FAMOTIDINE 20 MG TABLET PO SCH ×2 (09:56→22:27)
[2018-08-29] MEDS: SPIRONOLACTONE 25 MG TABLET PO SCH (09:56)
[2018-08-29] MEDS: ASPIRIN 81 MG TABLET, ENT COATED PO SCH (09:56)
[2018-08-29] MEDS: LISINOPRIL 5 MG TABLET PO SCH (09:56)
[2018-08-29] MEDS: TICAGRELOR 90 MG TABLET PO SCH ×2 (09:56→22:27)
[2018-08-29] MEDS: METOPROLOL SUCCINATE 25 MG TAB.SR.24H PO SCH ×2 (09:57→22:27)
[2018-08-29] MEDS: APIXABAN 2.5 MG TABLET PO SCH ×2 (09:57→22:27)
[2018-08-29] MEDS ORDERED: LISINOPRIL 10 MG TABLET PO SCH (10:00)
--- NOTE | 2018-08-29 20:09 | PDOC PROGRESS REPORT ---
Subjective Progress Note for:: 08/29/18 Subjective:: Patient still not feeling better. Still with very limited exercise capacity. Can hardly walk 10 feet without becoming short of breath. Reason For Visit: ARTRIAL FIBRILLATION WITH RAPID VENTRICULAR RESPON Physical Exam Vital Signs: Temp Pulse Resp BP Pulse Ox 97.2 F 88 18 92/69 L 97 08/29/18 15:26 08/29/18 15:26 08/29/18 15:26 08/29/18 15:26 08/29/18 15:26 Intake & Output 08/28/18 08/29/18 08/30/18 06:59 06:59 06:59 Intake Total 700 975 Balance 700 975 Weight 68 kg 66.4 kg General appearance: PRESENT: no acute distress, cooperative Respiratory exam: PRESENT: rales, unlabored. ABSENT: crackles, rhonchi, stridor, wheezes Cardiovascular exam: PRESENT: irregular rhythm GI/Abdominal exam: PRESENT: normal bowel sounds, soft. ABSENT: tenderness Extremities exam: ABSENT: pedal edema Neurological exam: PRESENT: alert, awake, oriented to person, oriented to place, oriented to situation Psychiatric exam: PRESENT: normal mood. ABSENT: agitated, anxious Results Laboratory Results: 08/29/18 04:33 08/29/18 04:33 08/29/18 08/29/18 04:33 04:33 WBC 7.5 RBC 4.52 Hgb 13.0 Hct 38.5 MCV 85 MCH 28.7 MCHC 33.8 RDW 14.3 H Plt Count 297 Sodium 137.8 Potassium 3.9 Chloride 99 Carbon Dioxide 28 Anion Gap 11 BUN 17 Creatinine 0.54 Est GFR ( Amer) > 60 Est GFR (Non-Af Amer) > 60 Glucose 180 H Calcium 9.0 Magnesium 1.9 08/27/18 08/27/18 08/27/18 14:12 14:12 15:50 Creatine Kinase CK-MB (CK-2) Troponin I Cancelled 1.310 NT-Pro-B Natriuret Pep Cancelled 5110 H 08/27/18 08/27/18 08/27/18 19:20 21:36 21:36 Creatine Kinase 40 CK-MB (CK-2) 1.38 Troponin I 1.340 1.350 NT-Pro-B Natriuret Pep 08/28/18 08/28/18 08/28/18 04:23 04:23 09:13 Creatine Kinase 45 48 CK-MB (CK-2) 1.52 Troponin I 1.230 NT-Pro-B Natriuret Pep 08/28/18 08/29/18 09:13 13:29 Creatine Kinase CK-MB (CK-2) 1.70 Troponin I 1.120 0.754 NT-Pro-B Natriuret Pep Impressions: Chest X-Ray 08/27/18 13:29 IMPRESSION: Mild, diffuse bilateral interstitial pulmonary opacity and probable small bilateral pleural effusions, likely edema in the setting of cardiomegaly. No focal airspace opacity. Chest CT 08/27/18 19:07 IMPRESSION: No acute pulmonary disease. Coronary artery calcification. Assessment & Plan - Diagnosis (1) Atrial fibrillation with RVR Is this a current diagnosis for this admission?: Yes Plan: Despite better rate control the patient still feels tired with minimal exertion. We will obtain an echocardiogram to assess cardiac function. (2) COPD (chronic obstructive pulmonary disease) Qualifiers: COPD type: emphysema Emphysema type: unspecified Qualified Code(s): J43.9 - Emphysema, unspecified Is this a current diagnosis for this admission?: Yes Plan: Continue current treatment regimen (3) Hypertension Qualifiers: Hypertension type: essential hypertension Qualified Code(s): I10 - Essential (primary) hypertension Is this a current diagnosis for this admission?: Yes Plan: Occasional low blood pressures. May need to adjust medications (4) Current use of detention anticoagulation Is this a current diagnosis for this admission?: Yes Plan: No change in treatment plan (5) Diabetes mellitus type 2 in nonobese Is this a current diagnosis for this admission?: Yes Plan: Still with variable glucose readings. May need to adjust insulin regimen. (6) Restless leg syndrome Is this a current diagnosis for this admission?: Yes Plan: Mirapex and gabapentin have been resumed. - Time Time Spent with patient: 15-24 minutes Medications reviewed and adjusted accordingly: Yes
[2018-08-29] MEDS ORDERED: DIGOXIN INJ 0.5 MG/2 ML AMPULE IV ONE (22:00)
[2018-08-29] MEDS: ROPINIROLE HCL 1 MG TABLET PO SCH (22:27)
[2018-08-29] MEDS: GABAPENTIN 300 MG CAPSULE PO SCH (22:27)
[2018-08-29] MEDS: ATORVASTATIN CALCIUM 40 MG TABLET PO SCH (22:27)
[2018-08-29] MEDS: PRAMIPEXOLE DI-HCL 0.25 MG TABLET PO SCH (22:28)
[2018-08-30 05:20] LABS: ABSOLUTE BASOPHILS # (AUTO) 0.1 10^3/uL (0.0-0.2); ABSOLUTE EOSINOPHILS # (AUTO) 0.2 10^3/uL (0.0-0.6); ABSOLUTE LYMPHOCYTES (AUTO) 1.2 10^3/uL (0.5-4.7); ABSOLUTE MONOCYTES (AUTO) 0.6 10^3/uL (0.1-1.4); ABSOLUTE NEUT (AUTO) 5.6 10^3/uL (1.7-8.2); BASOPHILS % (AUTO) 0.8 % (0-2); EOSINOPHILS % (AUTO) 2.1 % (0-6); HEMATOCRIT 40.6 % (36.0-47.0); HEMOGLOBIN 13.4 g/dL (12.0-15.5); LYMPHOCYTES % (AUTO) 15.8 % (13-45); MEAN CORPUSCULAR HEMOGLOBIN 28.3 pg (27.0-33.4); MEAN CORPUSCULAR VOLUME 86 fl (80-97); MONOCYTES % (AUTO) 8.4 % (3-13); PLATELET COUNT 280 10^3/uL (150-450); RED BLOOD COUNT 4.74 10^6/uL (3.72-5.28); RED CELL DISTRIBUTION WIDTH 14.4 % (11.5-14.0); SEGMENTED NEUTROPHILS % (AUTO) 72.9 % (42-78); TOTAL CELLS COUNTED % (AUTO) 100 %; WHITE BLOOD COUNT 7.7 10^3/uL (4.0-10.5)
[2018-08-30] MEDS: DILTIAZEM HCL 30 MG TABLET PO SCH ×3 (05:26→17:31)
[2018-08-30 05:48] LABS: ANION GAP 9 (5-19); BLOOD UREA NITROGEN 14 mg/dL (7-20); CALCIUM 9.4 mg/dL (8.4-10.2); CARBON DIOXIDE 28 mmol/L (22-30); CHLORIDE 102 mmol/L (98-107); GLUCOSE 144 mg/dL (75-110); POTASSIUM 4.3 mmol/L (3.6-5.0); SODIUM 139.1 mmol/L (137-145)
[2018-08-30] MEDS: FUROSEMIDE 40 MG TABLET PO SCH (10:52)
[2018-08-30] MEDS: GLIPIZIDE 5 MG TABLET PO SCH ×2 (10:52→17:30)
[2018-08-30] MEDS: SPIRONOLACTONE 25 MG TABLET PO SCH (10:52)
[2018-08-30] MEDS: APIXABAN 2.5 MG TABLET PO SCH (10:52)
[2018-08-30] MEDS: METOPROLOL SUCCINATE 25 MG TAB.SR.24H PO SCH ×2 (10:53→21:58)
[2018-08-30] MEDS: DOCUSATE SODIUM 100 MG CAPSULE PO SCH ×2 (10:53→17:30)
[2018-08-30] MEDS: LISINOPRIL 5 MG TABLET PO SCH (10:53)
[2018-08-30] MEDS: ASPIRIN 81 MG TABLET, ENT COATED PO SCH (10:53)
[2018-08-30] MEDS: FAMOTIDINE 20 MG TABLET PO SCH ×2 (10:53→21:58)
[2018-08-30] MEDS: FLUTICASONE/SALMETEROL DISKUS 250-50 MCG/DOSE IH SCH ×2 (10:55→21:58)
[2018-08-30] MEDS: INSULIN REG, HUMAN 100 UNIT/ML 3 ML VIAL (PYX) SUBCUT SCH ×4 (10:55→22:01)
[2018-08-30] MEDS: TICAGRELOR 90 MG TABLET PO SCH (10:55)
[2018-08-30] MEDS: DIGOXIN 0.125 MG TABLET PO SCH (15:41)
--- NOTE | 2018-08-30 19:19 | PDOC PROGRESS REPORT ---
Subjective Progress Note for:: 08/30/18 Reason For Visit: ARTRIAL FIBRILLATION WITH RAPID VENTRICULAR RESPON Physical Exam Vital Signs: Temp Pulse Resp BP Pulse Ox 97.8 F 79 18 98/49 L 99 08/30/18 15:17 08/30/18 15:17 08/30/18 15:17 08/30/18 15:17 08/30/18 15:17 Intake & Output 08/29/18 08/30/18 08/31/18 06:59 06:59 06:59 Intake Total 049 277 1730 Balance 053 215 1885 Weight 66.4 kg 65.4 kg General appearance: PRESENT: no acute distress, cooperative Respiratory exam: PRESENT: clear to auscultation ana. ABSENT: rales, rhonchi, wheezes Cardiovascular exam: PRESENT: irregular rhythm GI/Abdominal exam: PRESENT: normal bowel sounds, soft. ABSENT: tenderness Neurological exam: PRESENT: alert, awake, oriented to person, oriented to place, oriented to situation Psychiatric exam: PRESENT: normal mood. ABSENT: agitated, anxious Results Laboratory Results: 08/30/18 05:07 08/30/18 05:07 08/30/18 08/30/18 05:07 05:07 WBC 7.7 RBC 4.74 Hgb 13.4 Hct 40.6 MCV 86 MCH 28.3 MCHC 33.0 RDW 14.4 H Plt Count 280 Seg Neutrophils % 72.9 Lymphocytes % 15.8 Monocytes % 8.4 Eosinophils % 2.1 Basophils % 0.8 Absolute Neutrophils 5.6 Absolute Lymphocytes 1.2 Absolute Monocytes 0.6 Absolute Eosinophils 0.2 Absolute Basophils 0.1 Sodium 139.1 Potassium 4.3 Chloride 102 Carbon Dioxide 28 Anion Gap 9 BUN 14 Creatinine 0.54 Est GFR ( Amer) > 60 Est GFR (Non-Af Amer) > 60 Glucose 144 H Calcium 9.4 Magnesium 1.9 08/27/18 08/27/18 08/27/18 14:12 14:12 15:50 Creatine Kinase CK-MB (CK-2) Troponin I Cancelled 1.310 NT-Pro-B Natriuret Pep Cancelled 5110 H 08/27/18 08/27/18 08/27/18 19:20 21:36 21:36 Creatine Kinase 40 CK-MB (CK-2) 1.38 Troponin I 1.340 1.350 NT-Pro-B Natriuret Pep 08/28/18 08/28/18 08/28/18 04:23 04:23 09:13 Creatine Kinase 45 48 CK-MB (CK-2) 1.52 Troponin I 1.230 NT-Pro-B Natriuret Pep 08/28/18 08/29/18 09:13 13:29 Creatine Kinase CK-MB (CK-2) 1.70 Troponin I 1.120 0.754 NT-Pro-B Natriuret Pep Impressions: Chest X-Ray 08/27/18 13:29 IMPRESSION: Mild, diffuse bilateral interstitial pulmonary opacity and probable small bilateral pleural effusions, likely edema in the setting of cardiomegaly. No focal airspace opacity. Chest CT 08/27/18 19:07 IMPRESSION: No acute pulmonary disease. Coronary artery calcification. Assessment & Plan - Diagnosis (1) Atrial fibrillation with RVR Is this a current diagnosis for this admission?: Yes Plan: Digoxin added to the regimen. The patient remembers being on digoxin when she was diagnosed with atrial fibrillation. (2) COPD (chronic obstructive pulmonary disease) Qualifiers: COPD type: emphysema Emphysema type: unspecified Qualified Code(s): J43.9 - Emphysema, unspecified Is this a current diagnosis for this admission?: Yes Plan: Stable. Continue current regimen. (3) Hypertension Qualifiers: Hypertension type: essential hypertension Qualified Code(s): I10 - Essential (primary) hypertension Is this a current diagnosis for this admission?: Yes Plan: Blood pressure is slightly low. I have decreased the furosemide. We may need to adjust other medications. (4) Current use of claims consultant anticoagulation Is this a current diagnosis for this admission?: Yes Plan: I was called by the nurses. The patient was having epistaxis and an episode of vaginal spotting. She has had trouble with significant bleeding on anticoagulation before. We will hold the apixaban tonight and hold the aspirin and Brilinta until reassessed in the morning. (5) Diabetes mellitus type 2 in nonobese Is this a current diagnosis for this admission?: Yes Plan: Continue current regimen (6) Restless leg syndrome Is this a current diagnosis for this admission?: Yes Plan: Back on gabapentin and Mirapex - Time Time Spent with patient: 15-24 minutes Medications reviewed and adjusted accordingly: Yes
--- NOTE | 2018-08-30 21:30 | XCELERA REPORT ---
[address] [address] Transthoracic Echocardiogram Report Name: PHILIPPE LACEY Age: 68 yrs Gender: Female : 1950 Patient Status: Inpatient Patient Location: [address] [place], [place] [address]A Study Date: 08/30/2018 12:25 PM Height: 62 in Weight: 146 lb BSA: 1.7 m2 Procedure: A two-dimensional transthoracic echocardiogram with color flow and Doppler was performed. Study Quality: Poor. The study was technically difficult with many images being suboptimal in quality. Reason For Study: afib, chf History: ATRIAL FIBRILLATION / CHF. Ordering Physician: INGRIS BRIGHT Performed By: Suresh Ellis Interpretation Summary The left ventricle is mildly dilated. There is normal left ventricular wall thickness. LV EF is 30% Left ventricular systolic function is severely reduced. There is severe global hypokinesis of the left ventricle. There is no thrombus. The right ventricle is mild to moderately dilated. The right ventricular systolic function is mildly reduced. The right atrium is mildly dilated. The left atrium is mildly dilated. The interatrial septum is intact with no evidence for an atrial septal defect. There is no evidence of mitral valve prolapse. There is no vegetation seen on the mitral valve. There is a moderate to severe amount of mitral regurgitation There is no aortic valve stenosis There is no LVOT obstruction. No aortic regurgitation is present. There is no tricuspid stenosis. There is a mild amount of tricuspid regurgitation There is moderate pulmonary hypertension by echo RVSP is 51 to 56 mm of Hg , with RA mean of 15 to 20. There is a mild amount of pulmonic regurgitation There is no pulmonic valvular stenosis. The aortic root is not well visualized but is probably normal size. The inferior vena cava appeared dilated and decreased < 50% with respiration (RAP 15-20 mmHg) There is no pericardial effusion. MMode/2D Measurements & Calculations RVDd: 2.6 cm LVIDd: 5.3 cm FS: 16.7 % Ao root diam: 2.3 cm IVSd: 0.77 cm LVIDs: 4.5 cm EDV(Teich): 138.3 ml Ao root area: 4.3 cm2 LVPWd: 0.80 cm ESV(Teich): 90.4 ml LA dimension: 3.9 cm EF(Teich): 34.6 % LVOT diam: 1.6 cm LVOT area: 1.9 cm2 Doppler Measurements & Calculations MV E max wes: MV dec time: Ao V2 max: LV V1 max P.9 cm/sec 0.13 sec 60.3 cm/sec 2.8 mmHg MV A max wes: Ao max PG: LV V1 max: 36.4 cm/sec 1.5 mmHg 83.3 cm/sec MV E/A: 3.7 ANDRES(V,D): 2.7 cm2 MR max wes: TV V2 max: PA V2 max: PI end-d wes: 378.9 cm/sec 271.0 cm/sec 158.5 cm/sec 66.5 cm/sec MR max P.0 mmHg TV max PG: PA max P.4 mmHg 10.1 mmHg TR max wes: 298.6 cm/sec TR max P.7 mmHg Left Ventricle The left ventricle is mildly dilated. There is normal left ventricular wall thickness. LV EF is 30%. Left ventricular systolic function is severely reduced. LV diastolic function could not be adequately assessed due to atrial fibrilation. There is severe global hypokinesis of the left ventricle. There is no thrombus. There is no ventricular septal defect visualized. Right Ventricle The right ventricle is mild to moderately dilated. The right ventricular systolic function is mildly reduced. Atria The right atrium is mildly dilated. The left atrium is mildly dilated. The interatrial septum is intact with no evidence for an atrial septal defect. Mitral Valve There is no evidence of mitral valve prolapse. There is no vegetation seen on the mitral valve. There is no mitral valve stenosis. There is a moderate to severe amount of mitral regurgitation. Aortic Valve There is no aortic valvular vegetation. There is no aortic valve stenosis. There is no LVOT obstruction. No aortic regurgitation is present. Tricuspid Valve There is no tricuspid stenosis. There is a mild amount of tricuspid regurgitation. There is moderate pulmonary hypertension by echo. RVSP is 51 to 56 mm of Hg , with RA mean of 15 to 20. Pulmonic Valve There is no pulmonic valvular stenosis. There is a mild amount of pulmonic regurgitation. Great Vessels The aortic root is not well visualized but is probably normal size. The inferior vena cava appeared dilated and decreased < 50% with respiration (RAP 15-20 mmHg). Effusions There is no pericardial effusion. : INGRIS BRIGHT > Jessica Sifuentes
[2018-08-30] MEDS: GABAPENTIN 300 MG CAPSULE PO SCH (21:58)
[2018-08-30] MEDS: PRAMIPEXOLE DI-HCL 0.25 MG TABLET PO SCH (21:58)
[2018-08-30] MEDS: ROPINIROLE HCL 1 MG TABLET PO SCH (21:58)
[2018-08-30] MEDS: ATORVASTATIN CALCIUM 40 MG TABLET PO SCH (21:58)
--- NOTE | 2018-08-30 23:15 | Progress Note ---
Provider Note Provider Note: CARDIOLOGY PROGRESS NOTES by Dr. Jessica Sifuentes on 08/30/2018 SUBJECTIVE: The patient continues to be in atrial fibrillation. At times her heart rate does go fast. Unable to increase her Cardizem, since the patient's blood pressure is in the 100s. Hence digoxin will be asked added. The patient also complains of shortness of breath with minimal exertion. There is patient does have cough is bringing up some whitish brown sputum. There is no chest pain or discomfort. She does have orthopnea but no PND or leg edema. There is no ventricular arrhythmia seen on the monitor. There is no bleeding on Eliquis. There is no TIA CVA symptoms. PHYSICAL EXAMINATION: The patient is well-built and well-nourished. At present no acute distress while sitting in her bed. Selected Entries 08/30/18 08/30/18 07:27 11:45 Temperature 97.5 F 97.9 F Temperature Oral Oral Source Pulse Rate 107 H 85 Respiratory 18 Rate Blood Pressure 101/52 L Blood Pressure 68 Mean BP Location Right Arm BP Position Supine O2 Sat by Pulse 97 Oximetry Oxygen Flow 2.00 Rate Oxygen Delivery Nasal Cannula Method HEAD is atraumatic normocephalic. EYES: Pupils equal round regular reactive to light accommodation. Extraocular movements are normal. There is no conjunctival pallor. There is no scleral icterus. EARS: Tympanic membranes are intact. External auditory canals are clear. NOSE: There is no DVT is nasal septum. There is no nasal polyps. There is no inflammation of the nasal mucous membrane. MOUTH: Mucous membranes of mouth are moist. Tongue is moist. There is no ulcers. There is no bleeding in the gums. THROAT: There is no redness of the oropharynx. There is no exudates. SKIN: There is no petechia or ecchymosis. There is no skin lesions or skin rashes. NECK: Is supple. There is no JVD. Carotids are equal there is no bruit there is no lymphadenopathy. There is no goiter. There is no accessory muscles of respiration use. Trachea central. LUNGS: Shows diminished air entry prolonged expiration. There are few scattered rhonchi. There is no wheezing. There is a few fine rales of CHF in the bases. There is no chest wall tenderness on palpation. On percussion there is hyperresonance throughout. HEART: S1-S2 is heard. S1 is of variable intensity. There is no S3 gallop. There is no S4 gallop. There is murmur of mitral regurgitation present. There is no rub. ABDOMEN: Is soft. There is no hepatosplenic megaly. Bowel sounds are well heard. There is no tender areas masses. EXTREMITIES: Femorals are well felt. There is no femoral bruits. Leg pulses are well felt. There is no pedal edema. There is no DVT or cellulitis. There is no calf tenderness. There is no sinus or clubbing. DIRECTOR DIGITAL COMMUNICATIONS: The patient is conscious awake alert oriented x3 with no focal deficits. PSYCHIATRIC: The patient judgment insight are intact her affect is normal. Labs- All tests 24 hr 08/30/18 08/30/18 08/30/18 05:07 05:07 06:06 WBC 7.7 RBC 4.74 Hgb 13.4 Hct 40.6 MCV 86 MCH 28.3 MCHC 33.0 RDW 14.4 H Plt Count 280 Seg Neutrophils % 72.9 Lymphocytes % 15.8 Monocytes % 8.4 Eosinophils % 2.1 Basophils % 0.8 Absolute Neutrophils 5.6 Absolute Lymphocytes 1.2 Absolute Monocytes 0.6 Absolute Eosinophils 0.2 Absolute Basophils 0.1 Sodium 139.1 Potassium 4.3 Chloride 102 Carbon Dioxide 28 Anion Gap 9 BUN 14 Creatinine 0.54 Est GFR ( Amer) > 60 Est GFR (Non-Af Amer) > 60 Glucose 144 H POC Glucose 144 H Calcium 9.4 Magnesium 1.9 08/30/18 08/30/18 08/30/18 11:46 16:03 21:36 WBC RBC Hgb Hct MCV MCH MCHC RDW Plt Count Seg Neutrophils % Lymphocytes % Monocytes % Eosinophils % Basophils % Absolute Neutrophils Absolute Lymphocytes Absolute Monocytes Absolute Eosinophils Absolute Basophils Sodium Potassium Chloride Carbon Dioxide Anion Gap BUN Creatinine Est GFR ( Amer) Est GFR (Non-Af Amer) Glucose POC Glucose 241 H 348 H 77 Calcium Magnesium Chest X-Ray 08/27/18 13:29 IMPRESSION: Mild, diffuse bilateral interstitial pulmonary opacity and probable small bilateral pleural effusions, likely edema in the setting of cardiomegaly. No focal airspace opacity. Chest CT 08/27/18 19:07 IMPRESSION: No acute pulmonary disease. Coronary artery calcification. Patient's echo shows mildly dilated left ventricle. There is severe global hypokinesis with the ejection fraction of 3 30%. There is severe mitral regurgitation present. IMPRESSION/RECOMMENDATION: 1. Elevated troponin I: Most likely type II supply demand mismatch secondary to atrial fibrillation with rapid ventricular response, acute exacerbation of COPD, and CHF/cardiomyopathy. Troponin I has trended down. We will recheck the patient's troponin in the a.m. 2. Chronic atrial fibrillation at present ventricular response is controlled. Continue the patient on Eliquis. We will change the patient's Cardizem to Lopressor in view of the patient's cardiomyopathy. 3. Acute exacerbation COPD: Improving continue respiratory treatments, recommend antibiotics. 4. CHF: Secondary to cardia myopathy, will increase the patient's anti-cardi omyopathy treatment. 5. Coronary artery disease. History of PR in the past, history of stent in unknown vessel. Unable to obtain records. At present the patient has no anginal symptoms. 6. 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 7. Diabetes mellitus type 2 [id number]. Continue monitoring sugars and continue antidiabetic treatment. 8. Severe mitral regurgitation: Continue anti-CHF treatment, which should take care of this. 9. Hyperlipidemia. Medications reviewed. New medications added. Management plan discussed with the attending patient on the case and other caregiving providers on the case. Medical decision making is of high complexity. 40 minutes spent on this patient more than 50% of time spent in direct patient care.
[2018-08-31 04:04] LABS: HEMATOCRIT 41.4 % (36.0-47.0); HEMOGLOBIN 13.9 g/dL (12.0-15.5); MEAN CORPUSCULAR HEMOGLOBIN 28.8 pg (27.0-33.4); MEAN CORPUSCULAR HGB CONC 33.6 g/dL (32.0-36.0); MEAN CORPUSCULAR VOLUME 86 fl (80-97); PLATELET COUNT 234 10^3/uL (150-450); RED BLOOD COUNT 4.83 10^6/uL (3.72-5.28); RED CELL DISTRIBUTION WIDTH 14.7 % (11.5-14.0); WHITE BLOOD COUNT 7.7 10^3/uL (4.0-10.5)
[2018-08-31] MEDS ORDERED: FUROSEMIDE 40 MG TABLET PO SCH (08:00)
[2018-08-31] MEDS: FAMOTIDINE 20 MG TABLET PO SCH (09:21)
[2018-08-31] MEDS: INSULIN REG, HUMAN 100 UNIT/ML 3 ML VIAL (PYX) SUBCUT SCH ×3 (09:21→17:44)
[2018-08-31] MEDS: SPIRONOLACTONE 25 MG TABLET PO SCH (09:22)
[2018-08-31] MEDS: ASPIRIN 81 MG TABLET, ENT COATED PO SCH (09:22)
[2018-08-31] MEDS: LISINOPRIL 5 MG TABLET PO SCH (09:22)
[2018-08-31] MEDS: DOCUSATE SODIUM 100 MG CAPSULE PO SCH ×2 (09:22→17:44)
[2018-08-31] MEDS: FUROSEMIDE 40 MG TABLET PO SCH (09:22)
[2018-08-31] MEDS: GLIPIZIDE 5 MG TABLET PO SCH ×2 (09:22→17:44)
[2018-08-31] MEDS: METOPROLOL SUCCINATE 25 MG TAB.SR.24H PO SCH (09:22)
[2018-08-31] MEDS: DIGOXIN 0.125 MG TABLET PO SCH (09:22)
[2018-08-31] MEDS: FLUTICASONE/SALMETEROL DISKUS 250-50 MCG/DOSE IH SCH (09:23)
[2018-08-31] MEDS ORDERED: LORAZEPAM 0.5 MG TABLET PO PRN (16:41)
--- NOTE | 2018-08-31 21:56 | Progress Note ---
Provider Note Provider Note: CARDIOLOGY PROGRESS NOTE by Dr. Jessica Sifuentes on 08/31/2018. SUBJECTIVE: The patient's continues to be in atrial fibrillation, but with controlled ventricular response. Has not shortness of breath is slightly better. She still has some orthopnea but no PND. There is no leg edema. The patient denies any chest pain or discomfort. There is no ventricular arrhythmia seen on the monitor. There is no bleeding on Eliquis. There is no TIA CVA symptoms. The patient seems to be tolerating current medications introduced with to treat her cardiomyopathy. Still trying to obtain records from [facility]. PHYSICAL EXAMINATION: The patient is well-built and well-nourished. She is well-groomed. In no acute distress. Selected Entries 08/31/18 07:42 Temperature 97.5 F Temperature Oral Source Pulse Rate 60 Respiratory 18 Rate Blood Pressure 100/74 Blood Pressure 82 Mean BP Location Left Arm BP Position Supine O2 Sat by Pulse 100 Oximetry Oxygen Delivery Room Air Method HEAD is atraumatic normocephalic. EYES: Pupils equal round regular reactive to light accommodation. Extraocular movements are normal. There is no conjunctival pallor. There is no scleral icterus. EARS: Tympanic membranes are intact. External auditory canals are clear. NOSE: There is no DVT is nasal septum. There is no nasal polyps. There is no inflammation of the nasal mucous membrane. MOUTH: Mucous membranes of mouth are moist. Tongue is moist. There is no ulcers. There is no bleeding in the gums. THROAT: There is no redness of the oropharynx. There is no exudates. SKIN: There is no petechia or ecchymosis. There is no skin lesions or skin rashes. NECK: Is supple. There is no JVD. Carotids are equal there is no bruit there is no lymphadenopathy. There is no goiter. There is no accessory muscles of respiration use. Trachea central. LUNGS: Shows diminished air entry prolonged expiration. There are few scattered rhonchi. There is no wheezing. There is a few fine rales of CHF in the bases. There is no chest wall tenderness on palpation. On percussion there is hyperresonance throughout. HEART: S1-S2 is heard. S1 is of variable intensity. There is no S3 gallop. There is no S4 gallop. There is murmur of mitral regurgitation present. There is no rub. ABDOMEN: Is soft. There is no hepatosplenic megaly. Bowel sounds are well heard. There is no tender areas masses. EXTREMITIES: Femorals are well felt. There is no femoral bruits. Leg pulses are well felt. There is no pedal edema. There is no DVT or cellulitis. There is no calf tenderness. There is no sinus or clubbing. 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 PSYCHIATRIC: The patient judgment insight are intact her affect is normal. 08/31/18 08/31/18 08/31/18 03:50 06:18 11:48 WBC 7.7 RBC 4.83 Hgb 13.9 Hct 41.4 MCV 86 MCH 28.8 MCHC 33.6 RDW 14.7 H Plt Count 234 POC Glucose 159 H 280 H IMPRESSION/RECOMMENDATION: 1. Elevated troponin I: Most likely type II supply demand mismatch secondary to atrial fibrillation with rapid ventricular response, acute exacerbation of COPD, and CHF/cardiomyopathy. Troponin I has trended down. We will recheck the patient's troponin in the a.m. 2. Chronic atrial fibrillation at present ventricular response is controlled. Continue the patient on Eliquis. We will change the patient's Cardizem to Lopressor in view of the patient's cardiomyopathy. 3. Acute exacerbation COPD: Improving continue respiratory treatments, recommend antibiotics. 4. CHF: Secondary to cardia myopathy, will increase the patient's anti- cardiomyopathy treatment. 5. Coronary artery disease. History of VT in the past, history of stent in unknown vessel. Unable to obtain records. At present the patient has no anginal symptoms. We will schedule the patient for IV Lexiscan Cardiolite on Saturday [09/02/18.]. 6. 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 Will order for strict intake and output record. 7. Diabetes mellitus type 2 [id number]. Continue monitoring sugars and continue antidiabetic treatment. 8. Severe mitral regurgitation: Continue anti-CHF treatment, which should take care of this. 9. Hyperlipidemia. Medications reviewed. New medications added. Management plan discussed with the attending patient on the case and other caregiving providers on the case. Medical decision making is of high complexity. 40 minutes spent on this patient more than 50% of time spent in direct patient care.
[2018-09-01] MEDS: ATORVASTATIN CALCIUM 40 MG TABLET PO SCH ×2 (00:01→21:18)
[2018-09-01] MEDS: PRAMIPEXOLE DI-HCL 0.25 MG TABLET PO SCH ×2 (00:01→21:18)
[2018-09-01] MEDS: FAMOTIDINE 20 MG TABLET PO SCH ×3 (00:01→21:18)
[2018-09-01] MEDS: GABAPENTIN 300 MG CAPSULE PO SCH ×2 (00:02→21:18)
[2018-09-01] MEDS: METOPROLOL SUCCINATE 25 MG TAB.SR.24H PO SCH ×3 (00:02→21:19)
[2018-09-01] MEDS: TICAGRELOR 90 MG TABLET PO SCH ×3 (00:03→21:18)
[2018-09-01] MEDS: APIXABAN 2.5 MG TABLET PO SCH ×3 (00:04→21:18)
[2018-09-01] MEDS: ROPINIROLE HCL 1 MG TABLET PO SCH (00:04)
[2018-09-01] MEDS: INSULIN REG, HUMAN 100 UNIT/ML 3 ML VIAL (PYX) SUBCUT SCH ×5 (00:11→21:24)
[2018-09-01] MEDS: FLUTICASONE/SALMETEROL DISKUS 250-50 MCG/DOSE IH SCH ×3 (00:17→21:18)
[2018-09-01 05:02] LABS: HEMATOCRIT 41.8 % (36.0-47.0); HEMOGLOBIN 14.3 g/dL (12.0-15.5); MEAN CORPUSCULAR HEMOGLOBIN 29.1 pg (27.0-33.4); MEAN CORPUSCULAR HGB CONC 34.1 g/dL (32.0-36.0); MEAN CORPUSCULAR VOLUME 85 fl (80-97); PLATELET COUNT 328 10^3/uL (150-450); RED CELL DISTRIBUTION WIDTH 14.7 % (11.5-14.0); WHITE BLOOD COUNT 9.6 10^3/uL (4.0-10.5)
--- NOTE | 2018-09-01 06:01 | PDOC PROGRESS REPORT ---
Subjective Progress Note for:: 08/31/18 Subjective:: Still not feeling better. Patient upset. Found out she has a decreased ejection fraction with severe mitral regurgitation. Reason For Visit: ARTRIAL FIBRILLATION WITH RAPID VENTRICULAR RESPON Physical Exam Vital Signs: Temp Pulse Resp BP Pulse Ox 97.8 F 93 18 97/65 L 98 08/31/18 14:53 08/31/18 14:53 08/31/18 14:53 08/31/18 14:53 08/31/18 14:53 Intake & Output 08/30/18 08/31/18 09/01/18 06:59 06:59 06:59 Intake Total 975 1410 1173 Output Total 0 Balance 975 1410 1173 Weight 65.4 kg 64.6 kg General appearance: PRESENT: cooperative, mild distress Head exam: PRESENT: normocephalic Respiratory exam: PRESENT: rales, symmetrical. ABSENT: rhonchi, wheezes Cardiovascular exam: PRESENT: irregular rhythm GI/Abdominal exam: PRESENT: normal bowel sounds, soft. ABSENT: tenderness Rectal exam: PRESENT: deferred Neurological exam: PRESENT: alert, awake, oriented to person, oriented to place, oriented to time, oriented to situation Psychiatric exam: PRESENT: other - Quite sad. ABSENT: agitated, anxious Results Laboratory Results: 08/31/18 03:50 08/30/18 05:07 08/31/18 03:50 WBC 7.7 RBC 4.83 Hgb 13.9 Hct 41.4 MCV 86 MCH 28.8 MCHC 33.6 RDW 14.7 H Plt Count 234 08/27/18 08/27/18 08/27/18 14:12 14:12 15:50 Creatine Kinase CK-MB (CK-2) Troponin I Cancelled 1.310 NT-Pro-B Natriuret Pep Cancelled 5110 H 08/27/18 08/27/18 08/27/18 19:20 21:36 21:36 Creatine Kinase 40 CK-MB (CK-2) 1.38 Troponin I 1.340 1.350 NT-Pro-B Natriuret Pep 08/28/18 08/28/18 08/28/18 04:23 04:23 09:13 Creatine Kinase 45 48 CK-MB (CK-2) 1.52 Troponin I 1.230 NT-Pro-B Natriuret Pep 08/28/18 08/29/18 09:13 13:29 Creatine Kinase CK-MB (CK-2) 1.70 Troponin I 1.120 0.754 NT-Pro-B Natriuret Pep Impressions: Chest X-Ray 08/27/18 13:29 IMPRESSION: Mild, diffuse bilateral interstitial pulmonary opacity and probable small bilateral pleural effusions, likely edema in the setting of cardiomegaly. No focal airspace opacity. Chest CT 08/27/18 19:07 IMPRESSION: No acute pulmonary disease. Coronary artery calcification. Assessment & Plan - Diagnosis (1) Atrial fibrillation with RVR Is this a current diagnosis for this admission?: Yes Plan: Good rate control on current regimen. No changes at this time. (2) COPD (chronic obstructive pulmonary disease) Qualifiers: COPD type: emphysema Emphysema type: unspecified Qualified Code(s): J43.9 - Emphysema, unspecified Is this a current diagnosis for this admission?: Yes Plan: Patient reports breathing is difficult. After a discussion with the patient this could be related more to anxiety. We will continue current regimen as she is stable on room air. Low-dose benzodiazepine therapy has been added. (3) Hypertension Qualifiers: Hypertension type: essential hypertension Qualified Code(s): I10 - Essential (primary) hypertension Is this a current diagnosis for this admission?: Yes Plan: Continue current regimen. (4) Current use of jail anticoagulation Is this a current diagnosis for this admission?: Yes Plan: The patient has had problems on apixaban before. She was at a very low dose of 2.5 mg twice daily and she had some vaginal spotting and epistaxis 2 days ago. There is no rosa bleeding yesterday but in the past she has had vaginal bleeding passing large clots. She is also on Brilinta and aspirin. Apixaban is currently on hold. Is there is no bleeding today I will resume apixaban with her aspirin and Brilinta. (5) Diabetes mellitus type 2 in nonobese Is this a current diagnosis for this admission?: Yes Plan: As noted yesterday I have instituted low-dose long-acting insulin as we do not carry Jardiance on formulary. We will adjust long-acting insulin based on slid ing scale requirements and Accu-Cheks. (6) Restless leg syndrome Is this a current diagnosis for this admission?: Yes Plan: She in fact is on her gabapentin at slightly higher dose than previously. She is also on her Mirapex at her previously stated dose. She is still having issues with restless legs and Requip has been added. Some of this could be anxiety and I will speak to her about antidepressant therapy. (7) Mitral regurgitation Qualifiers: Cardiac valve disease etiology: nonrheumatic Qualified Code(s): I34.0 - Nonrheumatic mitral (valve) insufficiency Is this a current diagnosis for this admission?: Yes Plan: Echocardiogram reveals a depressed ejection fraction with severe mitral regur gitation and dilated atria. Continue current medications. Comanaging with cardiology. Please also see cardiology note. - Time Time Spent with patient: 15-24 minutes Medications reviewed and adjusted accordingly: Yes
[2018-09-01] MEDS: FUROSEMIDE 40 MG TABLET PO SCH (08:57)
[2018-09-01] MEDS: GLIPIZIDE 5 MG TABLET PO SCH ×2 (08:59→17:14)
[2018-09-01] MEDS: ASPIRIN 81 MG TABLET, ENT COATED PO SCH (09:01)
[2018-09-01] MEDS: DIGOXIN 0.125 MG TABLET PO SCH (09:01)
[2018-09-01] MEDS: LISINOPRIL 5 MG TABLET PO SCH ×3 (09:01→21:19)
[2018-09-01] MEDS: DOCUSATE SODIUM 100 MG CAPSULE PO SCH ×2 (09:01→17:15)
[2018-09-01] MEDS: SPIRONOLACTONE 25 MG TABLET PO SCH (09:18)
[2018-09-01] MEDS ORDERED: LORAZEPAM 0.5 MG TABLET PO PRN (09:47)
--- NOTE | 2018-09-01 09:58 | PDOC PROGRESS REPORT ---
Subjective Progress Note for:: 09/01/18 Subjective:: She reports that the Lorazepam helped but possibly was too strong a dose. She is eating breakfast and resting comfortably this morning. Reason For Visit: ARTRIAL FIBRILLATION WITH RAPID VENTRICULAR RESPON Physical Exam Vital Signs: Temp Pulse Resp BP Pulse Ox 97.8 F 42 L 18 102/68 96 09/01/18 07:25 09/01/18 07:25 09/01/18 07:25 09/01/18 07:25 09/01/18 07:25 Intake & Output 08/31/18 09/01/18 09/02/18 06:59 06:59 06:59 Intake Total 1410 1598 Output Total 0 Balance 1410 1598 Weight 64.6 kg 65.2 kg General appearance: PRESENT: no acute distress, cooperative, well-developed Respiratory exam: PRESENT: rales, symmetrical, unlabored. ABSENT: accessory muscle use, rhonchi, tachypnea, wheezes - Faint Cardiovascular exam: PRESENT: irregular rhythm, +S1, +S2 GI/Abdominal exam: PRESENT: normal bowel sounds, soft. ABSENT: distended, tenderness Neurological exam: PRESENT: alert, awake, oriented to person, oriented to place, oriented to time, oriented to situation, CN II-XII grossly intact Psychiatric exam: PRESENT: depressed, flat affect. ABSENT: agitated, anxious Results Laboratory Results: 09/01/18 04:32 08/30/18 05:07 09/01/18 04:32 WBC 9.6 RBC 4.90 Hgb 14.3 Hct 41.8 MCV 85 MCH 29.1 MCHC 34.1 RDW 14.7 H Plt Count 328 08/27/18 08/27/18 08/27/18 14:12 14:12 15:50 Creatine Kinase CK-MB (CK-2) Troponin I Cancelled 1.310 NT-Pro-B Natriuret Pep Cancelled 5110 H 08/27/18 08/27/18 08/27/18 19:20 21:36 21:36 Creatine Kinase 40 CK-MB (CK-2) 1.38 Troponin I 1.340 1.350 NT-Pro-B Natriuret Pep 08/28/18 08/28/18 08/28/18 04:23 04:23 09:13 Creatine Kinase 45 48 CK-MB (CK-2) 1.52 Troponin I 1.230 NT-Pro-B Natriuret Pep 08/28/18 08/29/18 09:13 13:29 Creatine Kinase CK-MB (CK-2) 1.70 Troponin I 1.120 0.754 NT-Pro-B Natriuret Pep Impressions: Chest X-Ray 08/27/18 13:29 IMPRESSION: Mild, diffuse bilateral interstitial pulmonary opacity and probable small bilateral pleural effusions, likely edema in the setting of cardiomegaly. No focal airspace opacity. Chest CT 08/27/18 19:07 IMPRESSION: No acute pulmonary disease. Coronary artery calcification. Assessment & Plan - Diagnosis (1) Atrial fibrillation with RVR Is this a current diagnosis for this admission?: Yes Plan: She is now on digoxin. I did order a digoxin level for tomorrow. This is in addition to her metoprolol. We will continue to monitor heart rate. Anticoagulation as outlined below. (2) Mitral regurgitation Qualifiers: Cardiac valve disease etiology: nonrheumatic Qualified Code(s): I34.0 - Nonrheumatic mitral (valve) insufficiency Is this a current diagnosis for this admission?: Yes Plan: Mitral regurgitation with pulmonary hypertension identified on echocardiogram. Continue current medication regimen. Please also see cardiology note. 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 Continue to monitor for signs of bleeding. (4) COPD (chronic obstructive pulmonary disease) Qualifiers: COPD type: emphysema Emphysema type: unspecified Qualified Code(s): J43.9 - Emphysema, unspecified Is this a current diagnosis for this admission?: Yes Plan: Stable on room air. Continue current Advair with as needed nebulizer treatments available. (5) Hypertension Qualifiers: Hypertension type: essential hypertension Qualified Code(s): I10 - Essential (primary) hypertension Is this a current diagnosis for this admission?: Yes Plan: Now on multiple medications (Aldactone, furosemide, lisinopril and metoprolol). Continue to monitor blood pressure and adjust medications accordingly. (6) Diabetes mellitus type 2 in nonobese Is this a current diagnosis for this admission?: Yes Plan: Because Jardiance is not on our formulary have been using Lantus to supplement her glipizide. I did instruct the patient that if she could have someone bring her Jardiance to the hospital we can begin using it and this should obviate the need for insulin. (7) Restless leg syndrome Is this a current diagnosis for this admission?: Yes Plan: This may very well be due to anxiety. The patient has been on antidepressant before. She will think about it but does not want one added at this time. The anxiety may likely be the etiology of restlessness at night. I will discontinue the Requip but continue the Mirapex and gabapentin at this time. (8) Depression with anxiety Is this a current diagnosis for this admission?: Yes Plan: As noted above the patient has been treated for depression in the past and freely admits that she is anxious. Temporary treatment with lorazepam seems to be helping. I did discuss the potential benefits of a low-dose antidepressant to help with her anxiety and what I believe is depression. She stated that if the new treatment plan is effective and she feels better than she will not feel overwhelmed. She will think about it however and let me know if she wishes to start a medication. - Time Time Spent with patient: 15-24 minutes Medications reviewed and adjusted accordingly: Yes Anticipated discharge: Home
[2018-09-01] MEDS ORDERED: INSULIN GLARGINE,HUM.REC.ANLOG 300 UNIT/3 ML INSULN.PEN SUBCUT SCH (10:00)
[2018-09-01] MEDS: INSULIN GLARGINE,HUM.REC.ANLOG 300 UNIT/3 ML INSULN.PEN SUBCUT SCH (10:39)
--- NOTE | 2018-09-01 11:54 | Progress Note ---
Provider Note Provider Note: CARDIOLOGY PROGRESS NOTE by Dr. Jessica Sifuentes on 09/01/2018. SUBJECTIVE: The patient states that shortness of breath is improved. She has no chest pain. She denies orthopnea now and is able to lie down flat. There is no PND. There is no leg edema. She continues to be in atrial fibrillation with controlled ventricular response. There is no ventricular arrhythmia seen on the monitor. There is no bleeding on Eliquis. There is no TIA CVA symptoms. PHYSICAL EXAMINATION: The patient is well-built and well-nourished. At present in no acute distress. She is well-groomed. Selected Entries 09/01/18 09/01/18 07:00 07:25 Temperature 97.8 F Temperature Oral Source Pulse Rate 89 Respiratory 18 Rate Blood Pressure 102/68 Blood Pressure 79 Mean BP Location Right Arm BP Position Supine O2 Sat by Pulse 96 Oximetry Oxygen Delivery Room Air Method HEAD is atraumatic normocephalic. EYES: Pupils equal round regular reactive to light accommodation. Extraocular movements are normal. There is no conjunctival pallor. There is no scleral icterus. EARS: Tympanic membranes are intact. External auditory canals are clear. NOSE: There is no DVT is nasal septum. There is no nasal polyps. There is no inflammation of the nasal mucous membrane. MOUTH: Mucous membranes of mouth are moist. Tongue is moist. There is no ulcers. There is no bleeding in the gums. THROAT: There is no redness of the oropharynx. There is no exudates. SKIN: There is no petechia or ecchymosis. There is no skin lesions or skin rashes. NECK: Is supple. There is no JVD. Carotids are equal there is no bruit there is no lymphadenopathy. There is no goiter. There is no accessory muscles of respiration use. Trachea central. LUNGS: Shows diminished air entry prolonged expiration. There are few scattered rhonchi. There is no wheezing. There is a few fine rales of CHF in the bases. There is no chest wall tenderness on palpation. On percussion there is hyperresonance throughout. HEART: S1-S2 is heard. S1 is of variable intensity. There is no S3 gallop. There is no S4 gallop. There is murmur of mitral regurgitation present. There is no rub. ABDOMEN: Is soft. There is no hepatosplenic megaly. Bowel sounds are well heard. There is no tender areas masses. EXTREMITIES: Femorals are well felt. There is no femoral bruits. Leg pulses are well felt. There is no pedal edema. There is no DVT or cellulitis. There is no calf tenderness. There is no sinus or clubbing. 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 PSYCHIATRIC: The patient judgment insight are intact her affect is normal. 09/01/18 09/01/18 04:32 06:10 WBC 9.6 RBC 4.90 Hgb 14.3 Hct 41.8 MCV 85 MCH 29.1 MCHC 34.1 RDW 14.7 H Plt Count 328 POC Glucose 186 H MPRESSION/RECOMMENDATION: 1. Elevated troponin I: Most likely type II supply demand mismatch secondary to atrial fibrillation with rapid ventricular response, acute exacerbation of COPD, and CHF/cardiomyopathy. Troponin I has trended down. We will recheck the patient's troponin in the a.m. 2. Chronic atrial fibrillation at present ventricular response is controlled. Continue the patient on Eliquis. Continue Lopressor in view of the patient's cardiomyopathy. 3. Acute exacerbation COPD: Improving continue respiratory treatments, recommend antibiotics. 4. CHF: Secondary to cardia myopathy, will increase the patient's anti- cardiomyopathy treatment. 5. Coronary artery disease. History of NV in the past, history of stent in unknown vessel. Unable to obtain records. At present the patient has no anginal symptoms. We will schedule the patient for IV Lexiscan Cardiolite tomorrow. [On Saturday [09/02/18.]]. 6. 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 Will order for strict intake and output record. 7. Diabetes mellitus type 2 [id number]. Continue monitoring sugars and continue antidiabetic treatment. 8. Severe mitral regurgitation: Continue anti-CHF treatment, which should take care of this. 9. Hyperlipidemia. Medications reviewed. New medications added. Management plan discussed with the attending patient on the case and other caregiving providers on the case. Medical decision making is of high complexity. 40 minutes spent on this patient more than 50% of time spent in direct patient care.
[2018-09-02 05:23] LABS: ANION GAP 5 (5-19); BLOOD UREA NITROGEN 18 mg/dL (7-20); CALCIUM 9.8 mg/dL (8.4-10.2); CARBON DIOXIDE 29 mmol/L (22-30); CHLORIDE 104 mmol/L (98-107); DIGOXIN 0.66 ng/mL (0.8-2.0); GLUCOSE 181 mg/dL (75-110); POTASSIUM 5.2 mmol/L (3.6-5.0); SODIUM 138.4 mmol/L (137-145)
[2018-09-02] MEDS: INSULIN REG, HUMAN 100 UNIT/ML 3 ML VIAL (PYX) SUBCUT SCH ×4 (08:04→23:13)
[2018-09-02] MEDS: GLIPIZIDE 5 MG TABLET PO SCH ×2 (08:04→17:44)
[2018-09-02] MEDS ORDERED: REGADENOSON INJ 0.4 MG/5 ML DISP.SYRIN IV ONE (12:13)
[2018-09-02] MEDS: SPIRONOLACTONE 25 MG TABLET PO SCH (13:43)
[2018-09-02] MEDS: DOCUSATE SODIUM 100 MG CAPSULE PO SCH ×2 (13:43→17:44)
[2018-09-02] MEDS: TICAGRELOR 90 MG TABLET PO SCH ×2 (13:43→23:14)
[2018-09-02] MEDS: APIXABAN 2.5 MG TABLET PO SCH ×2 (13:43→23:14)
[2018-09-02] MEDS: FLUTICASONE/SALMETEROL DISKUS 250-50 MCG/DOSE IH SCH ×2 (13:51→23:15)
[2018-09-02] MEDS: MIDODRINE HCL 5 MG TABLET PO SCH ×2 (13:52→17:44)
[2018-09-02] MEDS: ASPIRIN 81 MG TABLET, ENT COATED PO SCH (13:52)
[2018-09-02] MEDS: FAMOTIDINE 20 MG TABLET PO SCH ×2 (13:53→23:14)
[2018-09-02] MEDS: INSULIN GLARGINE,HUM.REC.ANLOG 300 UNIT/3 ML INSULN.PEN SUBCUT SCH (13:53)
[2018-09-02] MEDS: DIGOXIN 0.125 MG TABLET PO SCH (13:56)
--- NOTE | 2018-09-02 16:10 | PDOC PROGRESS REPORT ---
Subjective Progress Note for:: 09/02/18 Subjective:: No adverse events overnight. When I saw her she had just gotten back from her stress test and she was sitting on the side of the bed off oxygen eating her lunch. She denies any chest pain. No palpitations. Reason For Visit: ARTRIAL FIBRILLATION WITH RAPID VENTRICULAR RESPON Physical Exam Vital Signs: Temp Pulse Resp BP Pulse Ox 97.5 F 91 20 93/69 L 99 09/02/18 11:40 09/02/18 11:40 09/02/18 11:40 09/02/18 11:40 09/02/18 11:40 Intake & Output 09/01/18 09/02/18 09/03/18 06:59 06:59 06:59 Intake Total 1598 1576 237 Balance 1598 1576 237 Weight 65.2 kg 64.4 kg General appearance: PRESENT: no acute distress, cooperative Respiratory exam: PRESENT: crackles - Faint bibasilar, symmetrical, unlabored. ABSENT: accessory muscle use, prolonged expiratory phas, rhonchi, tachypnea, wheezes Cardiovascular exam: PRESENT: irregular rhythm Vascular exam: PRESENT: normal capillary refill GI/Abdominal exam: PRESENT: normal bowel sounds, soft. ABSENT: distended, guarding, rebound, tenderness Extremities exam: ABSENT: clubbing, pedal edema Musculoskeletal exam: PRESENT: normal inspection. ABSENT: deformity Neurological exam: PRESENT: alert, awake, oriented to person, oriented to place, oriented to time, oriented to situation Psychiatric exam: PRESENT: appropriate affect, normal mood Skin exam: PRESENT: dry, warm Results Laboratory Results: 09/01/18 04:32 09/02/18 04:26 09/02/18 04:26 Sodium 138.4 Potassium 5.2 H Chloride 104 Carbon Dioxide 29 Anion Gap 5 BUN 18 Creatinine 0.69 Est GFR ( Amer) > 60 Est GFR (Non-Af Amer) > 60 Glucose 181 H Calcium 9.8 08/27/18 08/27/18 08/27/18 14:12 14:12 15:50 Creatine Kinase CK-MB (CK-2) Troponin I Cancelled 1.310 NT-Pro-B Natriuret Pep Cancelled 5110 H 08/27/18 08/27/18 08/27/18 19:20 21:36 21:36 Creatine Kinase 40 CK-MB (CK-2) 1.38 Troponin I 1.340 1.350 NT-Pro-B Natriuret Pep 08/28/18 08/28/18 08/28/18 04:23 04:23 09:13 Creatine Kinase 45 48 CK-MB (CK-2) 1.52 Troponin I 1.230 NT-Pro-B Natriuret Pep 08/28/18 08/29/18 09:13 13:29 Creatine Kinase CK-MB (CK-2) 1.70 Troponin I 1.120 0.754 NT-Pro-B Natriuret Pep Impressions: Chest X-Ray 08/27/18 13:29 IMPRESSION: Mild, diffuse bilateral interstitial pulmonary opacity and probable small bilateral pleural effusions, likely edema in the setting of cardiomegaly. No focal airspace opacity. Chest CT 08/27/18 19:07 IMPRESSION: No acute pulmonary disease. Coronary artery calcification. Assessment & Plan - Diagnosis (1) Atrial fibrillation with RVR Is this a current diagnosis for this admission?: Yes Plan: Currently rate controlled. On Pradaxa. (2) CHF (congestive heart failure) Qualifiers: Heart failure type: systolic Heart failure chronicity: acute Qualified Code(s): I50.21 - Acute systolic (congestive) heart failure Is this a current diagnosis for this admission?: Yes Plan: She has had a stress test and the results are pending. Depending on the results of that test, she may need further workup. Cardiology is following. (3) CAD (coronary artery disease) Qualifiers: Coronary Disease-Associated Artery/Lesion type: [place] artery [place] vs. transplanted heart: [place] heart Associated angina: without angina Qualified Code(s): I25.10 - Atherosclerotic heart disease of [place] coronary artery without angina pectoris Is this a current diagnosis for this admission?: Yes Plan: She is on Brilinta and an aspirin. She has intermittent bleeding episodes that were monitoring. - Time Time Spent with patient: 25-34 minutes
--- NOTE | 2018-09-02 22:21 | Progress Note ---
Provider Note Provider Note: CARDIOLOGY PROGRESS NOTE by Dr. Jessica Sifuentes on 09/02/2018. SUBJECTIVE: The patient had an IV Lexiscan Cardiolite study this morning. Just prior to the infusion of IV Lexiscan, the patient's blood pressure was in the 90s. She was given 250 mL of normal saline bolus and her blood pressure came up to 114/71. And a this reading was after the patient was injected with Lexiscan and the study was done. Subsequently when the patient came down for getting the stress images blood pressure was 70 the patient felt weak and dizzy. At this time the patient was given 250 mL of normal saline. All her anti- cardiomyopathy/CHF medications have been held including Lasix, beta-nathan, and a RONN inhibitor. Subsequently the patient was seen in the room to discuss the patient's results. At that time the patient denied chest pain or discomfort. There is no dizziness or near syncope or syncope. There is no shortness of breath. There is no PND orthopnea or leg edema. There was no ventricular arrhythmia seen on the monitor. The patient denied any palpitations. There is no bleeding on Eliquis. There is no TIA CVA symptoms. PHYSICAL EXAMINATION: The patient is well-built. She is well-nourished. At present in no acute distress with a blood pressure being stable. Early employer systolic blood pressure was 93/61 but subsequently the blood pressure came up to 110 systolic. Selected Entries 09/02/18 11:40 Temperature 97.5 F Temperature Oral Source Respiratory 20 Rate Blood Pressure 93/69 L Blood Pressure 77 Mean BP Location Left Arm BP Position Supine O2 Sat by Pulse 99 Oximetry Oxygen Delivery Room Air Method HEAD is atraumatic normocephalic. EYES: Pupils equal round regular reactive to light accommodation. Extraocular movements are normal. There is no conjunctival pallor. There is no scleral icterus. EARS: Tympanic membranes are intact. External auditory canals are clear. NOSE: There is no DVT is nasal septum. There is no nasal polyps. There is no inflammation of the nasal mucous membrane. MOUTH: Mucous membranes of mouth are moist. Tongue is moist. There is no ulcers. There is no bleeding in the gums. THROAT: There is no redness of the oropharynx. There is no exudates. SKIN: There is no petechia or ecchymosis. There is no skin lesions or skin rashes. NECK: Is supple. There is no JVD. Carotids are equal there is no bruit there is no lymphadenopathy. There is no goiter. There is no accessory muscles of respiration use. Trachea central. LUNGS: Shows diminished air entry prolonged expiration. There are few scattered rhonchi. There is no wheezing. There is a few fine rales of CHF in the bases. There is no chest wall tenderness on palpation. On percussion there is hyperresonance throughout. HEART: S1-S2 is heard. S1 is of variable intensity. There is no S3 gallop. There is no S4 gallop. There is murmur of mitral regurgitation present. There is no rub. ABDOMEN: Is soft. There is no hepatosplenic megaly. Bowel sounds are well heard. There is no tender areas masses. EXTREMITIES: Femorals are well felt. There is no femoral bruits. Leg pulses are well felt. There is no pedal edema. There is no DVT or cellulitis. There is no calf tenderness. There is no sinus or clubbing. 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 PSYCHIATRIC: The patient judgment insight are intact her affect is normal. 09/02/18 09/02/18 04:26 07:03 Sodium 138.4 Potassium 5.2 H Chloride 104 Carbon Dioxide 29 Anion Gap 5 BUN 18 Creatinine 0.69 Est GFR (Non-Af Amer) > 60 Glucose 181 H POC Glucose 152 H Calcium 9.8 The patient stress test showed that scar/SD in the left ventricular apex, with minimal jodi-infarct reversible ischemia. There is also scar/SD in the in the inferior wall and in the interventricular septum. The overall ejection fraction at rest was 24% and stress was 28%.. The computer read 3 times daily ratio is abnormal at 1.24, but visually this was not accurate. This findings were discussed with the patient. We will treat the patient medically. MPRESSION/RECOMMENDATION: 1. Elevated troponin I: Most likely type II supply demand mismatch secondary to atrial fibrillation with rapid ventricular response, acute exacerbation of COPD, and CHF/cardiomyopathy. Troponin I has trended down. We will recheck the patient's troponin in the a.m. 2. Chronic atrial fibrillation at present ventricular response is controlled. Continue the patient on Eliquis. Continue Lopressor in view of the patient's cardiomyopathy. 3. Acute exacerbation COPD: Improving continue respiratory treatments, recomme nd antibiotics. 4. CHF: Secondary to cardia myopathy, will increase the patient's anti- cardiomyopathy treatment. 5. Coronary artery disease. History of SD in the past, history of stent in unknown vessel. Unable to obtain records. At present the patient has no anginal symptoms. We will schedule the patient for IV Lexiscan Cardiolite tomorrow. [On Saturday [09/02/18.]]. 6. 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 Will order for strict intake and output record. 7. Diabetes mellitus type 2 [id number]. Continue monitoring sugars and continue antidiabetic treatment. 8. Severe mitral regurgitation: Continue anti-CHF treatment, which should take care of this. 9. Hyperlipidemia. 10. Hypotension: We will stop the patient's beta-nathan RONN inhibitor and her diuretic. We will start the patient on Midrin. We will reassess the patient's blood pressure and heart rate in the a.m. and increase as tolerated. 11. Abnormal cardiovascular function test. [Abnormal IV Lexiscan Cardiolite stress test]. Will maximize anti-CAD and anti-CHF treatment according the the dictated off the patient's blood pressure and heart rate. The stress test findings were also discussed with attending physician on the case. Medications reviewed. New medications added. Management plan discussed with the attending patient on the case and other caregiving providers on the case. Medical decision making is of high complexity. 40 minutes spent on this patient more than 50% of time spent in direct patient care.
[2018-09-02] MEDS: PRAMIPEXOLE DI-HCL 0.25 MG TABLET PO SCH (23:14)
[2018-09-02] MEDS: GABAPENTIN 300 MG CAPSULE PO SCH (23:14)
[2018-09-02] MEDS: ATORVASTATIN CALCIUM 40 MG TABLET PO SCH (23:15)
--- NOTE | 2018-09-03 00:31 | DRAGON STRESS TEST REPORT ---
Intravenous Lexiscan Cardiolite stress test using single photon emmision computerized tomography. Date of procedure: 09/02/2018. Ordering Provider: Dr. Jessica Sifuentes. Patient's status: In Patient Indication: Patient with history of coronary artery disease, history of stent in unknown coronary artery, admitted with atrial fibrillation with rapid ventricular response, shortness of breath, and elevated troponin levels.. Coronary risk factors: Age,, and an presence of coronary artery disease. Resting EKG: Atrial fibrillation. T inversion in leads V5 to V6. Stress EKG: No changes of ischemia. Note prior to the infusion of Lexiscan, the patient complains of some dizziness. Systolic blood pressure was noted to be 96/64 and subsequently 92/61. The patient was given 100 mL of normal saline and the systolic blood pressure came up to 114/71 and the patient underwent infusion of Lexiscan and a stress dose of technetium 99 sestamibi was injected. The stress test was further carried out without any untoward events. The patient had no further dizziness, and no shortness of breath or chest pain/discomfort. There was no arrhythmias of ventricular origin seen. Reason for termination: Protocol. Conclusions: Normal EKG and hemodynamic response to IV Lexiscan, after 100 mL normal saline bolus.. Nuclear data: At rest the patient was given 10.17 millicuries of technetium 99m sestamibi injected intravenously. As per protocol rest non gated SPECT images were obtained. Subsequently the patient was given intravenous Lexiscan at a dose of 0.4 mg in 5 mL intravenously, followed by flush with normal saline. Subsequently the stress dose of 32.5 millicuries of technetium 99m sestamibi was injected intravenously. As per protocol stress gated images were obtained. Nuclear interpretation: Review of images showed that there was a perfusion defect involving the left ventricle apex and the stress images and also in the rest images with there being slightly/marginally better perfusion in the rest images. This LV apex had decreased motion contraction and thickening by gated study. Hence this is consistent with the left ventricle apical scar with some minimal jodi-infarct reversibility. There is also fixed defect/scar in both rest and stress images involving the inferior wall and the interventricular septum. The inferior wall and interventricular septum both had decreased motion contraction and thickening. The rest of the myocardium had normal perfusion at rest and normal perfusion post stress with IV Lexiscan. The rest of the myocardial segments of normal thickening by gated study. There was global severe hypokinesis.. . T. I D. ratio was read as abnormal at 1.24. But visually this is not reliable and the ratio is normal. The left ventricle is dilated in both the stress and rest images. This is consistent with cardiomyopathy, with severely reduced LV ejection fraction. There is no transient ischemic dilatation of the left ventricle. Computer read rest, and stress left ventricular ejection fraction were 24 %, and 28 %, respectively. Conclusion: 1. There is no scintigraphic evidence of Lexiscan induced myocardial scar/infarction involving the left ventricular apex, with minimal jodi-infarct reversible ischemia. 2. There is scintigraphic evidence of myocardial infarction/scar involving the inferior wall and the interventricular septum. 3. There is LV dilatation with severely reduced LV ejection fraction consistent with mixed ischemic and dilated cardiomyopathy.. Recommendations: Aggressive treatment of the patient's coronary artery disease, and her cardiomyopathy, and aggressive risk factor modification, and treating the underlying co- morbidities. [place]
[2018-09-03] MEDS: INSULIN REG, HUMAN 100 UNIT/ML 3 ML VIAL (PYX) SUBCUT SCH ×4 (07:56→21:26)
[2018-09-03] MEDS: MIDODRINE HCL 5 MG TABLET PO SCH ×3 (07:58→17:34)
[2018-09-03] MEDS: GLIPIZIDE 5 MG TABLET PO SCH ×2 (07:58→17:35)
[2018-09-03 08:05] LABS: HEMATOCRIT 44.4 % (36.0-47.0); HEMOGLOBIN 14.9 g/dL (12.0-15.5); MEAN CORPUSCULAR HEMOGLOBIN 28.7 pg (27.0-33.4); MEAN CORPUSCULAR HGB CONC 33.6 g/dL (32.0-36.0); MEAN CORPUSCULAR VOLUME 85 fl (80-97); PLATELET COUNT 348 10^3/uL (150-450); RED CELL DISTRIBUTION WIDTH 14.9 % (11.5-14.0); WHITE BLOOD COUNT 7.6 10^3/uL (4.0-10.5)
[2018-09-03] MEDS: APIXABAN 2.5 MG TABLET PO SCH ×2 (09:53→21:25)
[2018-09-03] MEDS: TICAGRELOR 90 MG TABLET PO SCH ×2 (09:53→21:25)
[2018-09-03] MEDS: DIGOXIN 0.125 MG TABLET PO SCH (09:53)
[2018-09-03] MEDS: ASPIRIN 81 MG TABLET, ENT COATED PO SCH (09:53)
[2018-09-03] MEDS: FLUTICASONE/SALMETEROL DISKUS 250-50 MCG/DOSE IH SCH ×2 (09:53→21:26)
[2018-09-03] MEDS: DOCUSATE SODIUM 100 MG CAPSULE PO SCH ×2 (09:53→17:35)
[2018-09-03] MEDS: FAMOTIDINE 20 MG TABLET PO SCH ×2 (09:53→21:25)
[2018-09-03] MEDS: INSULIN GLARGINE,HUM.REC.ANLOG 300 UNIT/3 ML INSULN.PEN SUBCUT SCH (09:55)
[2018-09-03] MEDS: SPIRONOLACTONE 25 MG TABLET PO SCH (12:17)
--- NOTE | 2018-09-03 14:44 | PDOC PROGRESS REPORT ---
Subjective Progress Note for:: 09/03/18 Subjective:: No adverse events overnight. No new complaints. She has been in the bed on room air and says she feels pretty good. She said she gets a little tired when she gets up to go to the bathroom or the sink but otherwise she feels fairly well. She is been eating and drinking without difficulty. Several of her medications were held yesterday because of her blood pressure. She does not remember much about the details of her conversation today with Dr. Sifuentes. Reason For Visit: ARTRIAL FIBRILLATION WITH RAPID VENTRICULAR RESPON Physical Exam Vital Signs: Temp Pulse Resp BP Pulse Ox 97.3 F 91 24 H 112/66 100 09/03/18 12:24 09/03/18 12:24 09/03/18 12:24 09/03/18 12:24 09/03/18 12:24 Intake & Output 09/02/18 09/03/18 09/04/18 06:59 06:59 06:59 Intake Total 1576 1247 Balance 1576 1247 Weight 64.4 kg 65 kg General appearance: PRESENT: no acute distress, cooperative Respiratory exam: PRESENT: Clear to auscultation bilaterally, symmetrical, unlabored. ABSENT: accessory muscle use, crackles, prolonged expiratory phase, rhonchi, tachypnea, wheezes Cardiovascular exam: PRESENT: irregular rhythm Vascular exam: PRESENT: normal capillary refill GI/Abdominal exam: PRESENT: normal bowel sounds, soft. ABSENT: distended, guarding, rebound, tenderness Extremities exam: ABSENT: clubbing, pedal edema Musculoskeletal exam: PRESENT: normal inspection. ABSENT: deformity Neurological exam: PRESENT: alert, awake, oriented to person, oriented to place, oriented to time, oriented to situation Psychiatric exam: PRESENT: appropriate affect, normal mood Skin exam: PRESENT: dry, warm Results Laboratory Results: 09/03/18 07:39 09/02/18 04:26 09/03/18 07:39 WBC 7.6 RBC 5.20 Hgb 14.9 Hct 44.4 MCV 85 MCH 28.7 MCHC 33.6 RDW 14.9 H Plt Count 348 08/27/18 08/27/18 08/27/18 14:12 14:12 15:50 Creatine Kinase CK-MB (CK-2) Troponin I Cancelled 1.310 NT-Pro-B Natriuret Pep Cancelled 5110 H 08/27/18 08/27/18 08/27/18 19:20 21:36 21:36 Creatine Kinase 40 CK-MB (CK-2) 1.38 Troponin I 1.340 1.350 NT-Pro-B Natriuret Pep 08/28/18 08/28/18 08/28/18 04:23 04:23 09:13 Creatine Kinase 45 48 CK-MB (CK-2) 1.52 Troponin I 1.230 NT-Pro-B Natriuret Pep 08/28/18 08/29/18 09:13 13:29 Creatine Kinase CK-MB (CK-2) 1.70 Troponin I 1.120 0.754 NT-Pro-B Natriuret Pep Impressions: Chest X-Ray 08/27/18 13:29 IMPRESSION: Mild, diffuse bilateral interstitial pulmonary opacity and probable small bilateral pleural effusions, likely edema in the setting of cardiomegaly. No focal airspace opacity. Chest CT 08/27/18 19:07 IMPRESSION: No acute pulmonary disease. Coronary artery calcification. Assessment & Plan - Diagnosis (1) Atrial fibrillation with RVR Is this a current diagnosis for this admission?: Yes Plan: Currently rate controlled with digoxin; beta-blockers and other medications were held because of her blood pressure. On Pradaxa. (2) CHF (congestive heart failure) Qualifiers: Heart failure type: systolic Heart failure chronicity: acute Qualified Code(s): I50.21 - Acute systolic (congestive) heart failure Is this a current diagnosis for this admission?: Yes Plan: Systolic heart failure, tentatively NYHA class II. We had to stop some of her medications because of low blood pressure, but currently she does not appear decompensated. Will follow up with Dr. Sifuentes about whether or not she needs to be evaluated for defibrillator, but the patient said she did not want to get one. We will also check with him to see if this is a patient who would benefit from cardioversion due to her atrial fibrillation in the setting of heart failure with reduced ejection fraction. (3) CAD (coronary artery disease) Qualifiers: Coronary Disease-Associated Artery/Lesion type: [place] artery [place] vs. transplanted heart: [place] heart Associated angina: without angina Qualified Code(s): I25.10 - Atherosclerotic heart disease of [place] coronary artery without angina pectoris Is this a current diagnosis for this admission?: Yes Plan: She is on Brilinta and an aspirin. She has intermittent bleeding episodes that were monitoring. - Time Time Spent with patient: 25-34 minutes
[2018-09-03] MEDS: ATORVASTATIN CALCIUM 40 MG TABLET PO SCH (21:25)
[2018-09-03] MEDS: GABAPENTIN 300 MG CAPSULE PO SCH (21:25)
[2018-09-03] MEDS: PRAMIPEXOLE DI-HCL 0.25 MG TABLET PO SCH (21:25)
[2018-09-04] MEDS: SPIRONOLACTONE 25 MG TABLET PO SCH (10:42)
[2018-09-04] MEDS: DIGOXIN 0.125 MG TABLET PO SCH (10:42)
[2018-09-04] MEDS: ASPIRIN 81 MG TABLET, ENT COATED PO SCH (10:42)
[2018-09-04] MEDS: FAMOTIDINE 20 MG TABLET PO SCH ×2 (10:42→21:42)
[2018-09-04] MEDS: GLIPIZIDE 5 MG TABLET PO SCH ×2 (10:42→17:02)
[2018-09-04] MEDS: DOCUSATE SODIUM 100 MG CAPSULE PO SCH ×2 (10:42→21:28)
[2018-09-04] MEDS: METOPROLOL SUCCINATE 25 MG TAB.SR.24H PO SCH (10:43)
[2018-09-04] MEDS: SACUBITRIL/VALSARTAN 24 MG/26 MG TABLET PO SCH ×2 (10:43→21:42)
[2018-09-04] MEDS: APIXABAN 2.5 MG TABLET PO SCH ×2 (10:43→21:42)
[2018-09-04] MEDS: FLUTICASONE/SALMETEROL DISKUS 250-50 MCG/DOSE IH SCH ×2 (10:43→21:41)
[2018-09-04] MEDS: TICAGRELOR 90 MG TABLET PO SCH ×2 (10:43→21:41)
[2018-09-04] MEDS: MIDODRINE HCL 5 MG TABLET PO SCH ×3 (10:46→17:02)
[2018-09-04] MEDS: INSULIN GLARGINE,HUM.REC.ANLOG 300 UNIT/3 ML INSULN.PEN SUBCUT SCH (10:46)
[2018-09-04] MEDS: INSULIN REG, HUMAN 100 UNIT/ML 3 ML VIAL (PYX) SUBCUT SCH ×4 (10:47→21:42)
--- NOTE | 2018-09-04 14:25 | PDOC PROGRESS REPORT ---
Subjective Progress Note for:: 09/04/18 Subjective:: No adverse events overnight. No new complaints. Vital signs been stable. No chest pain or shortness of breath. Reason For Visit: ARTRIAL FIBRILLATION WITH RAPID VENTRICULAR RESPON Physical Exam Vital Signs: Temp Pulse Resp BP Pulse Ox 97.7 F 95 16 111/69 99 09/04/18 12:18 09/04/18 12:18 09/04/18 12:18 09/04/18 12:18 09/04/18 12:18 Intake & Output 09/03/18 09/04/18 09/05/18 06:59 06:59 06:59 Intake Total 1247 1539 337 Balance 1247 1539 337 Weight 65 kg 65.5 kg General appearance: PRESENT: no acute distress, cooperative Respiratory exam: PRESENT: Clear to auscultation bilaterally, symmetrical, unlabored. ABSENT: accessory muscle use, crackles, prolonged expiratory phase, rhonchi, tachypnea, wheezes Cardiovascular exam: PRESENT: irregular rhythm Vascular exam: PRESENT: normal capillary refill GI/Abdominal exam: PRESENT: normal bowel sounds, soft. ABSENT: distended, guarding, rebound, tenderness Extremities exam: ABSENT: clubbing, pedal edema Musculoskeletal exam: PRESENT: normal inspection. ABSENT: deformity Neurological exam: PRESENT: alert, awake, oriented to person, oriented to place, oriented to time, oriented to situation Psychiatric exam: PRESENT: appropriate affect, normal mood Skin exam: PRESENT: dry, warm Results Laboratory Results: 09/03/18 07:39 09/02/18 04:26 08/27/18 08/27/18 08/27/18 14:12 14:12 15:50 Creatine Kinase CK-MB (CK-2) Troponin I Cancelled 1.310 NT-Pro-B Natriuret Pep Cancelled 5110 H 08/27/18 08/27/18 08/27/18 19:20 21:36 21:36 Creatine Kinase 40 CK-MB (CK-2) 1.38 Troponin I 1.340 1.350 NT-Pro-B Natriuret Pep 08/28/18 08/28/18 08/28/18 04:23 04:23 09:13 Creatine Kinase 45 48 CK-MB (CK-2) 1.52 Troponin I 1.230 NT-Pro-B Natriuret Pep 08/28/18 08/29/18 09:13 13:29 Creatine Kinase CK-MB (CK-2) 1.70 Troponin I 1.120 0.754 NT-Pro-B Natriuret Pep Impressions: Chest X-Ray 08/27/18 13:29 IMPRESSION: Mild, diffuse bilateral interstitial pulmonary opacity and probable small bilateral pleural effusions, likely edema in the setting of cardiomegaly. No focal airspace opacity. Chest CT 08/27/18 19:07 IMPRESSION: No acute pulmonary disease. Coronary artery calcification. Assessment & Plan - Diagnosis (1) Atrial fibrillation with RVR Is this a current diagnosis for this admission?: Yes Plan: Currently rate controlled with digoxin; beta-blockers reintroduced today as her blood pressure has improved. On Pradaxa. (2) CHF (congestive heart failure) Qualifiers: Heart failure type: systolic Heart failure chronicity: acute Qualified Code(s): I50.21 - Acute systolic (congestive) heart failure Is this a current diagnosis for this admission?: Yes Plan: Systolic heart failure, tentatively NYHA class II. Toprol-XL and Entresto were restarted today because her blood pressure has improved on Midrin. It does not appear that she will be a candidate for a defibrillator, and she does not want one anyway. Seems to be tolerating rate control strategy for atrial fibrillation at this time. (3) CAD (coronary artery disease) Qualifiers: Coronary Disease-Associated Artery/Lesion type: [place] artery [place] vs. transplanted heart: [place] heart Associated angina: without angina Qualified Code(s): I25.10 - Atherosclerotic heart disease of [place] coronary artery without angina pectoris Is this a current diagnosis for this admission?: Yes Plan: She is on Brilinta and an aspirin. She has intermittent bleeding episodes that we're monitoring. - Time Time Spent with patient: 25-34 minutes
[2018-09-04] MEDS: GABAPENTIN 300 MG CAPSULE PO SCH (21:42)
[2018-09-04] MEDS: PRAMIPEXOLE DI-HCL 0.25 MG TABLET PO SCH (21:42)
[2018-09-04] MEDS: ATORVASTATIN CALCIUM 40 MG TABLET PO SCH (21:42)
--- NOTE | 2018-09-04 23:01 | Progress Note ---
Provider Note Provider Note: CARDIOLOGY PROGRESS NOTE by Dr. Jessica Sifuentes on 09/04/2018. SUBJECTIVE: The patient's blood pressure is much improved on Midrin, and she is able to get her Toprol and Entresto. She denies any chest pain or discomfort. She feels much better there is no dizziness, near-syncope or syncope. There is no generalized fatigue or weakness. There is no chest pain or discomfort. There is no PND orthopnea. There is no leg edema. The patient continues to be in atrial fibrillation. There is no ventricular arrhythmia seen on the monitor. There is no bleeding on Eliquis. There is no TIA or CVA symptoms. PHYSICAL EXAMINATION: The patient is well-built and well-nourished. At present in no acute distress. Selected Entries 09/04/18 12:18 Temperature 97.7 F Temperature Oral Source Pulse Rate 95 Respiratory 16 Rate Blood Pressure 111/69 Blood Pressure 83 Mean BP Location Left Arm O2 Sat by Pulse 99 Oximetry Oxygen Delivery Room Air Method HEAD is atraumatic normocephalic. EYES: Pupils equal round regular reactive to light accommodation. Extraocular movements are normal. There is no conjunctival pallor. There is no scleral icterus. EARS: Tympanic membranes are intact. External auditory canals are clear. NOSE: There is no DVT is nasal septum. There is no nasal polyps. There is no inflammation of the nasal mucous membrane. MOUTH: Mucous membranes of mouth are moist. Tongue is moist. There is no ulcers. There is no bleeding in the gums. THROAT: There is no redness of the oropharynx. There is no exudates. SKIN: There is no petechia or ecchymosis. There is no skin lesions or skin rashes. NECK: Is supple. There is no JVD. Carotids are equal there is no bruit there is no lymphadenopathy. There is no goiter. There is no accessory muscles of respiration use. Trachea central. LUNGS: Shows diminished air entry prolonged expiration. There are few scattered rhonchi. There is no wheezing. There is a few fine rales of CHF in the bases. There is no chest wall tenderness on palpation. On percussion there is hyperresonance throughout. HEART: S1-S2 is heard. S1 is of variable intensity. There is no S3 gallop. There is no S4 gallop. There is murmur of mitral regurgitation present. There is no rub. ABDOMEN: Is soft. There is no hepatosplenic megaly. Bowel sounds are well heard. There is no tender areas masses. EXTREMITIES: Femorals are well felt. There is no femoral bruits. Leg pulses are well felt. There is no pedal edema. There is no DVT or cellulitis. There is no calf tenderness. There is no sinus or clubbing. 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 PSYCHIATRIC: The patient judgment insight are intact her affect is normal. 09/02/18 09/04/18 09/04/18 04:26 15:16 21:40 POC Glucose 219 H 168 H Digoxin 0.66 L In spite of the order written, there is still no accurate intake output record on the chart. Will discuss with the nurse the importance of this. IMPRESSION/RECOMMENDATION: 1. Elevated troponin I: Most likely type II supply demand mismatch secondary to atrial fibrillation with rapid ventricular response, acute exacerbation of COPD, and CHF/cardiomyopathy. Troponin I has trended down. We will recheck the patient's troponin in the a.m. 2. Chronic atrial fibrillation at present ventricular response is controlled. Continue the patient on Eliquis. Continue Lopressor, along with Entresto, and spironolactone. Would use Lasix 20 mg daily as needed only. Continue with midodrine keep the patient's blood pressure up so we can give those anti- cardiomyopathy medications. 3. Acute exacerbation COPD: Improving continue respiratory treatments, recommend antibiotics. This seems to be much improved. 4. CHF: Secondary to cardia myopathy, will increase the patient's anti- cardiomyopathy treatment. 5. Coronary artery disease. History of [place] in the past, history of stent in unknown vessel. Unable to obtain records. At present the patient has no anginal symptoms. We will schedule the patient for IV Lexiscan Cardiolite tomorrow. [On Saturday [09/02/18.]]. 6. 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 Will order for strict intake and output record.. Will recommend using Lasix 20 mg p.o. daily only as needed basis. 7. Diabetes mellitus type 2 [id number]. Continue monitoring sugars and continue antidiabetic treatment. 8. Severe mitral regurgitation: Continue anti-CHF treatment, which should take care of this. 9. Hyperlipidemia. 10. Hypotension: Her blood pressure has come up with me to drain. Hence continue Midrin. Note slowly and cautiously will increase the patient's Toprol- XL and her Entresto. 11. Abnormal cardiovascular function test. [Abnormal IV Lexiscan Cardiolite stress test]. Will maximize anti-CAD and anti-CHF treatment according the the dictated off the patient's blood pressure and heart rate. The stress test findings were also discussed with attending physician on the case. 12. Note patient is at high risk for sudden secondary to ventricular arrhythmias. Discussed the option of a LifeVest with the patient but the patient does not wanted she is fully aware of the risks of not having it on. Hopefully if the patient can ambulate can discharge the patient home. Will use Lasix on a as needed basis as mentioned earlier. Will slowly increase the patient's anti-cardiomyopathy medications. Will also start the patient on small dose of nitrates. Medical decision making is of high complexity. 40 minutes spent on this patient with more than 50% of time spent on direct patient care. I have rediscussed the patient's stress test with the patient. The plan is to recheck the patient's echocardiogram in 3 months, and if EF is 35% or below, and if the patient is willing, then would refer the patient for an AICD placement. Note her medications have been reviewed. Medications adjusted.
[2018-09-05 04:55] LABS: HEMATOCRIT 46.3 % (36.0-47.0); HEMOGLOBIN 15.7 g/dL (12.0-15.5); MEAN CORPUSCULAR HEMOGLOBIN 28.7 pg (27.0-33.4); MEAN CORPUSCULAR HGB CONC 33.8 g/dL (32.0-36.0); MEAN CORPUSCULAR VOLUME 85 fl (80-97); PLATELET COUNT 323 10^3/uL (150-450); RED BLOOD COUNT 5.46 10^6/uL (3.72-5.28); RED CELL DISTRIBUTION WIDTH 15.2 % (11.5-14.0); WHITE BLOOD COUNT 8.8 10^3/uL (4.0-10.5)
[2018-09-05] MEDS: INSULIN REG, HUMAN 100 UNIT/ML 3 ML VIAL (PYX) SUBCUT SCH ×4 (08:23→21:23)
[2018-09-05] MEDS: GLIPIZIDE 5 MG TABLET PO SCH ×2 (08:23→17:05)
[2018-09-05] MEDS: MIDODRINE HCL 5 MG TABLET PO SCH ×3 (08:23→17:05)
[2018-09-05] MEDS: DIGOXIN 0.125 MG TABLET PO SCH (10:48)
[2018-09-05] MEDS: ASPIRIN 81 MG TABLET, ENT COATED PO SCH (10:48)
[2018-09-05] MEDS: DOCUSATE SODIUM 100 MG CAPSULE PO SCH ×2 (10:49→17:08)
[2018-09-05] MEDS: METOPROLOL SUCCINATE 25 MG TAB.SR.24H PO SCH (10:49)
[2018-09-05] MEDS: FAMOTIDINE 20 MG TABLET PO SCH ×2 (10:49→21:04)
[2018-09-05] MEDS: SPIRONOLACTONE 25 MG TABLET PO SCH (10:49)
[2018-09-05] MEDS: APIXABAN 2.5 MG TABLET PO SCH ×2 (10:49→21:05)
[2018-09-05] MEDS: INSULIN GLARGINE,HUM.REC.ANLOG 300 UNIT/3 ML INSULN.PEN SUBCUT SCH (10:50)
[2018-09-05] MEDS: TICAGRELOR 90 MG TABLET PO SCH ×2 (10:50→21:05)
[2018-09-05] MEDS: FLUTICASONE/SALMETEROL DISKUS 250-50 MCG/DOSE IH SCH ×2 (10:50→21:07)
[2018-09-05] MEDS: SACUBITRIL/VALSARTAN 24 MG/26 MG TABLET PO SCH ×2 (10:50→21:06)
[2018-09-05] MEDS: NITROGLYCERIN 2.5 MG (0.1 MG/HR) PATCH.TD24 TD SCH (12:11)
--- NOTE | 2018-09-05 15:19 | PDOC PROGRESS REPORT ---
Subjective Progress Note for:: 09/05/18 Subjective:: No adverse events overnight. No new complaints. Vital signs been stable. No chest pain or shortness of breath. Her blood pressures have been fairly consistent without a whole lot of wide variation overnight. Reason For Visit: ARTRIAL FIBRILLATION WITH RAPID VENTRICULAR RESPON Physical Exam Vital Signs: Temp Pulse Resp BP Pulse Ox 97.3 F 83 18 97/67 L 97 09/05/18 11:40 09/05/18 14:00 09/05/18 11:40 09/05/18 11:40 09/05/18 11:40 Intake & Output 09/04/18 09/05/18 09/06/18 06:59 06:59 06:59 Intake Total 1539 627 Balance 1539 627 Weight 65.5 kg 65.4 kg General appearance: PRESENT: no acute distress, cooperative Respiratory exam: PRESENT: Clear to auscultation bilaterally, symmetrical, unlabored. ABSENT: accessory muscle use, crackles, prolonged expiratory phase, rhonchi, tachypnea, wheezes Cardiovascular exam: PRESENT: irregular rhythm Vascular exam: PRESENT: normal capillary refill GI/Abdominal exam: PRESENT: normal bowel sounds, soft. ABSENT: distended, guarding, rebound, tenderness Extremities exam: ABSENT: clubbing, pedal edema Musculoskeletal exam: PRESENT: normal inspection. ABSENT: deformity Neurological exam: PRESENT: alert, awake, oriented to person, oriented to place, oriented to time, oriented to situation Psychiatric exam: PRESENT: appropriate affect, normal mood Skin exam: PRESENT: dry, warm Results Laboratory Results: 09/05/18 04:24 09/02/18 04:26 09/05/18 04:24 WBC 8.8 RBC 5.46 H Hgb 15.7 H Hct 46.3 MCV 85 MCH 28.7 MCHC 33.8 RDW 15.2 H Plt Count 323 08/27/18 08/27/18 08/27/18 14:12 14:12 15:50 Creatine Kinase CK-MB (CK-2) Troponin I Cancelled 1.310 NT-Pro-B Natriuret Pep Cancelled 5110 H 08/27/18 08/27/18 08/27/18 19:20 21:36 21:36 Creatine Kinase 40 CK-MB (CK-2) 1.38 Troponin I 1.340 1.350 NT-Pro-B Natriuret Pep 08/28/18 08/28/18 08/28/18 04:23 04:23 09:13 Creatine Kinase 45 48 CK-MB (CK-2) 1.52 Troponin I 1.230 NT-Pro-B Natriuret Pep 08/28/18 08/29/18 09:13 13:29 Creatine Kinase CK-MB (CK-2) 1.70 Troponin I 1.120 0.754 NT-Pro-B Natriuret Pep Impressions: Chest X-Ray 08/27/18 13:29 IMPRESSION: Mild, diffuse bilateral interstitial pulmonary opacity and probable small bilateral pleural effusions, likely edema in the setting of cardiomegaly. No focal airspace opacity. Chest CT 08/27/18 19:07 IMPRESSION: No acute pulmonary disease. Coronary artery calcification. Assessment & Plan - Diagnosis (1) Atrial fibrillation with RVR Is this a current diagnosis for this admission?: Yes Plan: Currently rate controlled with digoxin; beta-blockers reintroduced as her blood pressure has improved. On Pradaxa. (2) CHF (congestive heart failure) Qualifiers: Heart failure type: systolic Heart failure chronicity: acute Qualified Code(s): I50.21 - Acute systolic (congestive) heart failure Is this a current diagnosis for this admission?: Yes Plan: Systolic heart failure, tentatively NYHA class II. Toprol-XL and Entresto were restarted because her blood pressure has improved on Midrin. It does not appear that she will be a candidate for a defibrillator, and she does not want one anyway. Seems to be tolerating rate control strategy for atrial fibrillation at this time. Nitrate was started, Dr. Sifuentes wants to make sure is not going to adversely affect her blood pressure before we send her home. (3) CAD (coronary artery disease) Qualifiers: Coronary Disease-Associated Artery/Lesion type: [place] artery [place] vs. transplanted heart: [place] heart Associated angina: without angina Qualified Code(s): I25.10 - Atherosclerotic heart disease of [place] coronary artery without angina pectoris Is this a current diagnosis for this admission?: Yes Plan: She is on Brilinta and an aspirin. She has intermittent bleeding episodes that we're monitoring. Fortunately has not had one in several days. - Time Time Spent with patient: 25-34 minutes
[2018-09-05] MEDS: ATORVASTATIN CALCIUM 40 MG TABLET PO SCH (21:05)
[2018-09-05] MEDS: PRAMIPEXOLE DI-HCL 0.25 MG TABLET PO SCH (21:05)
[2018-09-05] MEDS: GABAPENTIN 300 MG CAPSULE PO SCH (21:05)
--- NOTE | 2018-09-05 21:22 | Progress Note ---
Provider Note Provider Note: Cardiology progress note by Dr. Jessica Sifuentes on 09/05/2018. SUBJECTIVE: Although earlier her blood pressure was a little low. Blood pressure comes up with me to drain. The patient denies any chest pain or discomfort. There is no PND orthopnea. She is able to walk around the room without shortness of breath. She continues to be in atrial fibrillation with controlled ventricular response. There is no ventricular arrhythmia seen on the monitor. There is no leg edema. There is no bleeding on Eliquis. There is no TIA CVA symptoms. SUBJECTIVE: The patient is well-built and well-nourished. In no acute distress. Selected Entries 09/05/18 09/05/18 08:04 11:40 Temperature 97.4 F 97.3 F Temperature Oral Oral Source Pulse Rate 89 91 Respiratory 20 18 Rate Blood Pressure 89/67 L 97/67 L Blood Pressure 74 77 Mean BP Location Left Arm Left Arm BP Position Sitting Supine O2 Sat by Pulse 98 97 Oximetry Oxygen Delivery Room Air Room Air Method HEAD is atraumatic normocephalic. EYES: Pupils equal round regular reactive to light accommodation. Extraocular movements are normal. There is no conjunctival pallor. There is no scleral icterus. EARS: Tympanic membranes are intact. External auditory canals are clear. NOSE: There is no DVT is nasal septum. There is no nasal polyps. There is no inflammation of the nasal mucous membrane. MOUTH: Mucous membranes of mouth are moist. Tongue is moist. There is no ulcers. There is no bleeding in the gums. THROAT: There is no redness of the oropharynx. There is no exudates. SKIN: There is no petechia or ecchymosis. There is no skin lesions or skin rashes. NECK: Is supple. There is no JVD. Carotids are equal there is no bruit there is no lymphadenopathy. There is no goiter. There is no accessory muscles of respiration use. Trachea central. LUNGS: Shows diminished air entry prolonged expiration. There are few scattered rhonchi. There is no wheezing. There is a few fine rales of CHF in the bases. There is no chest wall tenderness on palpation. On percussion there is hyperresonance throughout. HEART: S1-S2 is heard. S1 is of variable intensity. There is no S3 gallop. There is no S4 gallop. There is murmur of mitral regurgitation present. There is no rub. ABDOMEN: Is soft. There is no hepatosplenic megaly. Bowel sounds are well heard. There is no tender areas masses. EXTREMITIES: Femorals are well felt. There is no femoral bruits. Leg pulses are well felt. There is no pedal edema. There is no DVT or cellulitis. There is no calf tenderness. There is no sinus or clubbing. BAGGAGE CHECKER: The patient is conscious awake alert oriented x3 with no focal deficits. PSYCHIATRIC: The patient judgment insight are intact her affect is normal. 09/05/18 09/05/18 09/05/18 04:24 05:51 11:38 WBC 8.8 RBC 5.46 H Hgb 15.7 H Hct 46.3 MCV 85 MCH 28.7 MCHC 33.8 RDW 15.2 H Plt Count 323 POC Glucose 166 H 254 H IMPRESSION/RECOMMENDATION: 1. Elevated troponin I: Most likely type II supply demand mismatch secondary to atrial fibrillation with rapid ventricular response, acute exacerbation of COPD, and CHF/cardiomyopathy. Troponin I has trended down. We will recheck the patient's troponin in the a.m. 2. Chronic atrial fibrillation at present ventricular response is controlled. Continue the patient on Eliquis. Continue Lopressor, along with Entresto, and spironolactone. Would use Lasix 20 mg daily as needed only. Continue with midodrine keep the patient's blood pressure up so we can give those anti- cardiomyopathy medications. 3. Acute exacerbation COPD: Improving continue respiratory treatments, recommend antibiotics. This seems to be much improved. 4. CHF: Secondary to cardia myopathy, will increase the patient's anti- cardiomyopathy treatment. 5. Coronary artery disease. History of [place] in the past, history of stent in unknown vessel. Unable to obtain records. At present the patient has no anginal symptoms. We will schedule the patient for IV Lexiscan Cardiolite tomorrow. [On Saturday [09/02/18.]]. 6. 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 Will order for strict intake and output record.. Will recommend using Lasix 20 mg p.o. daily only as needed basis. 7. Diabetes mellitus type 2 [id number]. Continue monitoring sugars and continue antidiabetic treatment. 8. Severe mitral regurgitation: Continue anti-CHF treatment, which should take care of this. 9. Hyperlipidemia. 10. Hypotension: Her blood pressure has come up with me to drain. Hence sim shoaib Amaro. Note slowly and cautiously will increase the patient's Toprol-XL and her Entresto. 11. Abnormal cardiovascular function test. [Abnormal IV Lexiscan Cardiolite stress test]. Will maximize anti-CAD and anti-CHF treatment according the the dictated off the patient's blood pressure and heart rate. The stress test findings were also discussed with attending physician on the case. 12. Note patient is at high risk for sudden secondary to ventricular arrhythmias. Discussed the option of a LifeVest with the patient but the patient does not wanted she is fully aware of the risks of not having it on. Hopefully if the patient can ambulate can discharge the patient home. Will use Lasix on a as needed basis as mentioned earlier. Will slowly increase the patient's anti-cardiomyopathy medications. Will also start the patient on small dose of nitrates. Medical decision making is of high complexity. 40 minutes spent on this patient with more than 50% of time spent on direct patient care. I have rediscussed the patient's stress test with the patient. The plan is to recheck the patient's echocardiogram in 3 months, and if EF is 35% or below, and if the patient is willing, then would refer the patient for an AICD placement.. Patient anxious to go home. She refuses a life vest she is aware of the risks. Agree with the discharge the patient tomorrow. Will sign off. We will follow the patient in the office. My contact numbers have been given to the patient. Discussed with the hospitalist taking care of the patient.
[2018-09-06] MEDS: INSULIN REG, HUMAN 100 UNIT/ML 3 ML VIAL (PYX) SUBCUT SCH ×2 (08:17→12:12)
[2018-09-06] MEDS: GLIPIZIDE 5 MG TABLET PO SCH (08:52)
[2018-09-06] MEDS: MIDODRINE HCL 5 MG TABLET PO SCH ×2 (08:53→12:13)
[2018-09-06] MEDS: SPIRONOLACTONE 25 MG TABLET PO SCH (10:36)
[2018-09-06] MEDS: APIXABAN 2.5 MG TABLET PO SCH (10:36)
[2018-09-06] MEDS: METOPROLOL SUCCINATE 25 MG TAB.SR.24H PO SCH (10:36)
[2018-09-06] MEDS: FAMOTIDINE 20 MG TABLET PO SCH (10:36)
[2018-09-06] MEDS: DIGOXIN 0.125 MG TABLET PO SCH (10:37)
[2018-09-06] MEDS: NITROGLYCERIN 2.5 MG (0.1 MG/HR) PATCH.TD24 TD SCH (10:38)
[2018-09-06] MEDS: ASPIRIN 81 MG TABLET, ENT COATED PO SCH (10:38)
[2018-09-06] MEDS: TICAGRELOR 90 MG TABLET PO SCH (10:38)
[2018-09-06] MEDS: SACUBITRIL/VALSARTAN 24 MG/26 MG TABLET PO SCH (10:39)
[2018-09-06] MEDS: INSULIN GLARGINE,HUM.REC.ANLOG 300 UNIT/3 ML INSULN.PEN SUBCUT SCH (10:39)
[2018-09-06] MEDS: DOCUSATE SODIUM 100 MG CAPSULE PO SCH (10:40)
[2018-09-06] MEDS: FLUTICASONE/SALMETEROL DISKUS 250-50 MCG/DOSE IH SCH (10:40)
[2018-09-06 12:22] VITALS: BP 110/76
--- NOTE | 2018-09-06 14:50 | PDOC DISCHARGE SUMMARY ---
General - Admit/Disc Date/PCP Admission Date/Primary Care Provider: 08/27/18 21:08 SEGUN BOWMAN PA-C Discharge Date: 09/06/18 - Discharge Diagnosis (1) Atrial fibrillation with RVR Is this a current diagnosis for this admission?: Yes Summary: She initially required a Cardizem drip, but this was discontinued in favor of metoprolol which she was on at home, plus some digoxin. Once her overall clinical status stabilized, her atrial fibrillation became much easier to control. She is anticoagulated. (2) CHF (congestive heart failure) Is this a current diagnosis for this admission?: Yes Summary: She initially presented with a 3-week history of dyspnea. At first, it was thought that her uncontrolled atrial fibrillation was causing her symptoms, but after her her echocardiogram, we realized that she had NYHA class II systolic congestive heart failure. She had a stress test that showed coronary artery disease but the defects were fixed. It was recommended that she have medical management. Her ejection fraction was in the 20s, but she was not at all interested in a LifeVest or a defibrillator. She had multiple medications started, including switching out her lisinopril in favor of Entresto, and a nitroglycerin patch. Her blood pressures were somewhat labile, in order to get her on the right medications for her heart failure, we started her on Midrin at the refuse laborer recommendation. She was already on a beta-elisha we had to cut the dose down of that because of her blood pressure. The combination of medications we had her on at discharge were well tolerated and she had been observed on them for several days. She will follow-up with Dr. Sifuentes as an outpatient. (3) CAD (coronary artery disease) Is this a current diagnosis for this admission?: Yes Summary: This was proven on nuclear stress test but her defects were fixed. Medical optimization, including aspirin plus Brilinta more recommended by cardiology, even though she was on Eliquis. - Additional Information Resuscitation Status: Full Code Discharge Diet: Cardiac, Diabetic Discharge Activity: Activity As Tolerated, Balance Activity w/Rest, Weigh Daily Prescriptions: Digoxin [Lanoxin 0.125 mg Tablet] 0.125 mg PO DAILY #30 tablet Metoprolol Succinate [Toprol Xl 25 mg Tab.sr] 25 mg PO DAILY #30 tab.sr.24h Midodrine HCl [Proamatine 5 mg Tablet] 10 mg PO TID@0800,1200,1600 #90 tablet Nitroglycerin [Nitro-Dur 2.5 mg (0.1 mg/Hr) Transdermal Ptch] 1 each TD DAILY #30 patch.td24 Sacubitril/Valsartan [Entresto 24 mg/26 mg Tablet] 1 tab PO Q12 #60 tablet Spironolactone [Aldactone 25 mg Tablet] 12.5 mg PO DAILY #15 tablet Ticagrelor [Brilinta 90 mg Tablet] 90 mg PO Q12 #60 tablet Home Medications: Albuterol Sulfate [Ventolin 0.083% Neb 2.5 mg/3 mL Ampul] 3 ml NEB Q6HP PRN 08/28/18 Apixaban [Eliquis 5 mg Tablet] 2.5 mg PO Q12 08/28/18 Cetirizine HCl [Zyrtec 10 mg Tablet] 10 mg PO DAILY 08/28/18 Diclofenac Sodium [Voltaren] 2 gr TOP Q6 08/28/18 Empagliflozin [Jardiance] 10 mg PO DAILY 08/28/18 Fluticasone/Salmeterol [Advair 250-50 Diskus 14 Dose/Diskus] 1 puff IH Q12 08/28/18 Furosemide [Lasix 40 mg Tablet] 40 mg PO DAILY 08/28/18 Gabapentin [Neurontin 100 mg Capsule] 300 mg PO QHS 08/28/18 Glipizide [Glucotrol 10 mg Tablet] 10 mg PO BIDACBS 08/28/18 Pramipexole Di-HCl [Mirapex] 0.125 mg PO QHS 08/28/18 Rosuvastatin Calcium [Crestor 20 mg Tablet] 20 mg PO DAILY 08/28/18 Aspirin [Ecotrin 81 mg EC Tablet] 81 mg PO DAILY tabec 09/06/18 Digoxin [Lanoxin 0.125 mg Tablet] 0.125 mg PO DAILY #30 tablet 09/06/18 Metoprolol Succinate [Toprol Xl 25 mg Tab.sr] 25 mg PO DAILY #30 tab.sr.24h 09/06/18 Midodrine HCl [Proamatine 5 mg Tablet] 10 mg PO TID@0800,1200,1600 #90 tablet 09/06/18 Nitroglycerin [Nitro-Dur 2.5 mg (0.1 mg/Hr) Transdermal Ptch] 1 each TD DAILY #30 patch.td24 09/06/18 Sacubitril/Valsartan [Entresto 24 mg/26 mg Tablet] 1 tab PO Q12 #60 tablet 09/06/18 Spironolactone [Aldactone 25 mg Tablet] 12.5 mg PO DAILY #15 tablet 09/06/18 Ticagrelor [Brilinta 90 mg Tablet] 90 mg PO Q12 #60 tablet 09/06/18 History of Present Illness History of Present Illness: PHILIPPE LACEY is a 68 year old female who presented to the emergency room with a 3-week history of dyspnea. She admits the onset of dyspnea approximately 3 weeks ago associated with a productive cough (thick yellowish green mucus) that was treated with a course of oral doxycycline which she completed 1 week ago without noticeable improvement. Her dyspnea continued to worsen until on the day of admission she noted a dramatic increase to severe dyspnea associated with palpitations and orthopnea as well as increased edema of her bilateral lower extremities and noticeably increased dyspnea with any exertion. She admits having prior similar episodes in the past on several occasions and has not identified any other aggravating or ameliorating factors for her dyspnea. She does admit a past history of atrial fibrillation, congestive heart failure, coronary artery disease, hypertension, COPD, type 2 diabetes mellitus and hyperlipidemia for which she is currently being treated. In the emergency room she was found to have atrial fibrillation with a rapid ventricular response which responded well to intravenous Cardizem. Her rate has continued to be well controlled with a Cardizem infusion. She was somewhat hypoxic and was treated with nebulizer therapy and BiPAP to which she has showed an excellent response. She was also noted to have an increased serum troponin at 1.[address] Sifuentes was consulted and agreed to see the patient in consultation and assist in her management. She was therefore admitted to the hospital for further evaluation and treatment. Hospital Course Hospital Course: We were able to get her heart rate under control and get a little bit of extra fluid off of her, and were able to optimize her to the point where we could get a stress test. The results are as noted above. Because the defects were fixed, no intervention was recommended, and an aggressive medical management strategy was chosen. The patient was declining a LifeVest and consideration for a defibrillator. She had medication changes as noted above, and her blood pressure became somewhat difficult to control. Therefore, cardiology recommended medication regimen that she is going home on, plus some Midrin. We watched her for a couple of days on this and her blood pressure stabilized very well. She has not displayed the lability that she had previously displayed. She will follow-up with Dr. Sifuentes in 1-2 weeks. Her labs and examination were reassuring and she was discharged in good condition. Physical Exam Vital Signs: Temp Pulse Resp BP Pulse Ox 97.4 F 82 18 110/76 97 09/06/18 12:20 09/06/18 12:20 09/06/18 12:20 09/06/18 12:20 09/06/18 12:20 Intake & Output 09/05/18 09/06/18 09/07/18 06:59 06:59 06:59 Intake Total 627 622 Output Total 1 Balance 627 621 Weight 65.4 kg 65.1 kg General appearance: PRESENT: no acute distress, cooperative Respiratory exam: PRESENT: Clear to auscultation bilaterally, symmetrical, un labored. ABSENT: accessory muscle use, crackles, prolonged expiratory phase, rhonchi, tachypnea, wheezes Cardiovascular exam: PRESENT: irregular rhythm Vascular exam: PRESENT: normal capillary refill GI/Abdominal exam: PRESENT: normal bowel sounds, soft. ABSENT: distended, guarding, rebound, tenderness Extremities exam: ABSENT: clubbing, pedal edema Musculoskeletal exam: PRESENT: normal inspection. ABSENT: deformity Neurological exam: PRESENT: alert, awake, oriented to person, oriented to place, oriented to time, oriented to situation Psychiatric exam: PRESENT: appropriate affect, normal mood Skin exam: PRESENT: dry, warm Results Laboratory Results: 09/05/18 04:24 09/02/18 04:26 08/27/18 08/27/18 08/27/18 14:12 14:12 15:50 Creatine Kinase CK-MB (CK-2) Troponin I Cancelled 1.310 NT-Pro-B Natriuret Pep Cancelled 5110 H 08/27/18 08/27/18 08/27/18 19:20 21:36 21:36 Creatine Kinase 40 CK-MB (CK-2) 1.38 Troponin I 1.340 1.350 NT-Pro-B Natriuret Pep 08/28/18 08/28/18 08/28/18 04:23 04:23 09:13 Creatine Kinase 45 48 CK-MB (CK-2) 1.52 Troponin I 1.230 NT-Pro-B Natriuret Pep 08/28/18 08/29/18 09:13 13:29 Creatine Kinase CK-MB (CK-2) 1.70 Troponin I 1.120 0.754 NT-Pro-B Natriuret Pep Impressions: Chest X-Ray 08/27/18 13:29 IMPRESSION: Mild, diffuse bilateral interstitial pulmonary opacity and probable small bilateral pleural effusions, likely edema in the setting of cardiomegaly. No focal airspace opacity. Chest CT 08/27/18 19:07 IMPRESSION: No acute pulmonary disease. Coronary artery calcification. Qualifiers - * PATIENT BEING DISCHARGED WITH ANY OF THE FOLLOWING DIAGNOSIS: Heart Failure HF Pt being discharged on ACEI for LVEF less than 40%?: No Reason(s) for not prescribing ACEI:: Not indicated - Discharged on Entresto HF Pt being discharged on ARBS for LVEF less than 40%?: Yes HF Pt with Afib discharged with Warfarin?: No Reason(s) for not prescribing Warfarin:: Medical Contraindication - Already on Eliquis HF Pt discharged on evidence-based Beta Elisha:: Yes
== END 2018-09-06 13:23 | disposition home or self-care (01) | DRG 293 ==
LOC: ER 12:26 → EH 21:08 → 3W 23:38
PROVIDERS: ADMIT Emergency Medicine; ATTEND Emergency Medicine
DX: I11.0 Hypertensive heart disease with heart failure (principal); I50.22 Chronic systolic (congestive) heart failure; I48.2 Chronic atrial fibrillation; J43.9 Emphysema, unspecified; I25.10 Atherosclerotic heart disease of native coronary artery without angina pectoris; E78.5 Hyperlipidemia, unspecified; E11.8 Type 2 diabetes mellitus with unspecified complications; K21.9 Gastro-esophageal reflux disease without esophagitis; G25.81 Restless legs syndrome; I25.2 Old myocardial infarction; Z95.5 Presence of coronary angioplasty implant and graft; Z87.891 Personal history of nicotine dependence; Z79.01 Long term (current) use of anticoagulants; Z79.891 Long term (current) use of opiate analgesic; Z79.899 Other long term (current) drug therapy; I34.0 Nonrheumatic mitral (valve) insufficiency; F41.8 Other specified anxiety disorders
CPT/HCPCS: 36415; 71045; 71250; 78452; 80048; 80053; 80061; 80162; 82550; 82553; 82962; 83036; 83735; 83880; 84439; 84443; 84481; 84484; 85025; 85027; 93005; 93010; 93017; 93306; 94660; 96365; 96366; 96376; 99291; A9500; J1160; J1650; J1815; J1940; J2785; J3490; Q9969; S0028